=== PATIENT | male | born 2000 | race Caucasian/White ===

== ENCOUNTER 2020-11-08 14:40 | Outpatient (REF) | payer SELFPAY ==
[2020-11-09 21:31] LABS: Rubella IgG Antibody 4.18 Index
[2020-11-11 08:15] LABS: HBS Num1 11.69 mIU/mL (0-7.99); HBc Num1 0.15 S/CO (0.00-0.79); HBsAGNum1 0.31 S/CO (0.00-0.99); Hepatitis B Core Antibody Nonreactive (Nonreactive); Hepatitis B Surface Antigen Negative (Negative)
[2020-11-11 09:44] LABS: HBS Num2 11.21 mIU/mL (0-7.99); HBS Num3 11.24 mIU/mL (0-7.99); ~Hepatitis B Surface Antibody GRAYZONE (Nonreactive)
== END 2020-11-08 14:41 | disposition home or self-care (01) ==
LOC: HO.LAB 14:40
PROVIDERS: PCP Internal Medicine; Visit Provider Internal Medicine
DX: Z02.0 Encounter for examination for admission to educational institution (principal)
CPT/HCPCS: 36415; 86704; 86706; 86735; 86762; 86765; 86787; 87340

== ENCOUNTER 2022-11-10 15:34 | Outpatient (AMB) | payer OTHER, SELFPAY ==
[2022-11-10 16:31] VITALS: BP 150/100; PULSE 87; O2SAT 97; BMI 33.7
--- NOTE | 2022-11-10 16:31 | A.OFFPC_ITS ---
Vital Signs 11/10/22 16:31 11/10/22 17:14 Height 6 ft 1 in Weight 255 lb 4 oz BMI 33.7 BP 150/100 H 110/70 Blood Pressure Location Lt brachial Lt brachial Position Sitting Sitting Pulse 87 Pulse Source Pulse Oximeter Pulse Oximetry (%) 97 Oxygen Delivery Method Room Air Intake Visit Reasons: Annual Exam Life Insurance Specialist: Not Required per policy Accompanied by: Self / Same As Patient Allergies No Known Allergies Allergy (Verified 11/10/22 16:31) Medication List - Last Reconciled 11/10/22 by Mook Abbott MD loratadine (Claritin) 10 mg PO DAILY Tobacco use date assessed: 11/10/22 Dental Screening Dental Screen Date: 11/10/22 Did you have a dental visit in the last 12 months?: Yes Did you have a dental problem in the last 6 months where you did not have access to dental care?: No Was dental information given to patient?: Patient has dentist HPI Annual Exam HPI Details 22-year-old Obese 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 November 30, 2022. hx of nausea-food poisoning hx - better now [facility] Medical History Sotos' syndrome Anxiety and depression Migraine Obesity (BMI 30-39.9) Surgical History History of MRSA infection History of ear surgery History of toe surgery Family History Mother Skin cancer Myocardial infarction Maternal Grandmother Skin cancer Maternal Grandfather Myocardial infarction Maternal Aunt Melanoma Brain cancer Primary cancer of bone marrow Social History Housing: House Alcohol intake: never Patient Tobacco Use Status: Never used Tobacco e-Cigarette/Vaping Use: Never Used Current occupational status: unemployed Cognitive needs: No Hearing needs: No Vision needs: No Questionnaire PHQ-9 Over the last 2 weeks, how often have you been bothered by any of the following problems? 1. Little interest or pleasure in doing things: not at all 2. Feeling down, depressed, or hopeless: not at all 3. Trouble falling or staying asleep, or sleeping too much: not at all 4. Feeling tired or having little energy: not at all 5. Poor appetite or overeating: not at all 6. Feeling bad about yourself - or that you are a failure or have let yourself or your family down: not at all 7. Trouble concentrating on things, such as reading the newspaper or watching television: not at all 8. Moving or speaking so slowly that other people could have noticed. Or the opposite - being so fidgety or restless that you have been moving around a lot more than usual: not at all 9. Thoughts that you would be better off or of hurting yourself in some way: not at all Total score: 0 Source: Developed by Drs. Miguel Angel Edwards, Kristi Muniz, Que Vides and colleagues, with an educational oracio from [employer]. Thrive Questionnaire Date Thrive assessed: 11/10/22 I am a: Patient What is your living situation today?: I have a steady place to live Within the past 12 months, did the food you bought not last and you didn't have the money to get more?: Never true Within the past 12 months, did you worry whether your food would run out before you got money to buy more?: Never true Do you have trouble paying for medicines?: No Do you have trouble getting transportation to medical appointments?: No Do you have trouble paying your heating and electricity bill?: No Do you have trouble taking care of your child, family member or friend?: No Do you have trouble with day-to-day activities such as bathing, preparing meals, shopping, managing finances, etc.?: No Are you currently unemployed and looking for a job?: No Are you interested in more education?: No Please select the resources that you would like help with: None AUDIT C Alcohol Use Questionnaire (AUDIT-C) 1. How often do you have a drink containing alcohol?: Never 2. How many drinks containing alcohol do you have on a typical day when you are drinking?: 1 or 2 (0) 3. How often do you have six or more drinks on one occasion?: Never Total Score: 0 SUZY-7 AMB Questionnaire SUZY-7 Date SUZY - 7 assessed: 11/10/22 Feeling nervous, anxious, or on edge: 0 = Not at all Not being able to stop or control worryin = Not at all Worrying too much about different things: 0 = Not at all Trouble relaxin = Not at all Being so restless that it is hard to sit still: 0 = Not at all Becoming easily annoyed or irritable: 0 = Not at all Feeling afraid as if something awful might happen: 0 = Not at all Total USZY-7 score (0-4 normal; 5-9 mild; 10-14 moderate; 15-21 severe): 0 Source: Developed by Drs. Miguel Angel Edwards, Kristi Muniz, Que Vides and colleagues, with an educational oracio from [employer]. Review of Systems Const Denies poor appetite and Denies weakness Eyes Denies no additional complaints ENT Reports Normal hearing present, Denies dizziness, Denies nasal congestion, Denies tinnitus and Denies sore throat Card Denies chest pain, Denies syncope, Denies rapid heart rate and Denies dyspnea Resp Denies cough and Denies dyspnea GI Denies change in stool character, Reports constipation, Denies diarrhea, Denies nausea and Denies vomiting Denies dysuria and Denies urinary frequency Neuro Reports Normal hearing present, Denies confusion, Denies dizziness, Denies syncope and Denies weakness Psych Denies confusion Physical exam (Primary Care) Vital Signs: Last Vital Signs Pulse 87 11/10/22 16:31 BP 150/100 H 11/10/22 16:31 Pulse Ox 97 11/10/22 16:31 Oxygen Delivery Method Room Air 11/10/22 16:31 BMI result Body Mass Index 33.7 Tobacco/Smoking Status: Tobacco use Status Tobacco use date assessed 11/10/22 11/10/22 16:36 Patient Tobacco Use Status Never used Tobacco 11/10/22 16:36 e-Cigarette/Vaping Use Never Used 11/10/22 16:36 PHQ-9: PHQ-9 Score PHQ-9: Total score 0 11/10/22 16:36 Thrive Assessment: Date of Thrive Assessment Date Thrive assessed 11/10/22 11/10/22 16:36 Const General: alert and awake; No confusion Orientation/consciousness: No confusion HENMT Head: Yes normocephalic Ears: external ears normal and TM's normal bilaterally Face and sinus: Yes normal facial exam Mouth: moist mucous membranes Throat: Yes tonsils normal Eyes Conjunctivae: conjunctivae normal Pupils: Equal, round and reactive pupils present and Pupil accommodation reflex normal Direct Ophthalmoscopy: normal light reflex Neck Neck: No lymphadenopathy Thyroid: Thyroid normal Chest Chest palpation & inspection: normal inspection of the chest Resp Effort & Inspection: normal respiratory effort and no audible wheezes Auscultation: clear to auscultation bilaterally, no crackles, no wheezes and lung sounds not diminished Cardio Rate: regular rate Rhythm: regular rhythm Peripheral pulses: radial pulses present and dorsalis pedis present GI Other: Visual exam negative Palpation (GI): no masses Auscultation: normal bowel sounds and normoactive bowel sounds Rectal Exam - Male: Yes deferred Male General Exam: Yes normal external exam Skin General skin exam: no rashes or lesions noted Rashes: no rashes Neuro General: deep tendon reflexes 2+ bilaterally and No confusion Cranial nerves: Yes Equal, round and reactive pupils present, Yes Midline tongue present, Yes Normal hearing present and Yes Ability to bilaterally elevate shoulders present Cognition (Neuro): normal cognition Gait exam (Neuro): Normal gait present Motor exam (neuro): 5/5 motor strength present throughout Deep tendon reflexes (DTR's): Right brachioradialis reflex intensity grade: 2+, Left brachioradialis reflex intensity grade: 2+, Right patellar reflex intensity grade: 2+ and Left patellar reflex intensity grade: 2+ Extrem General: No edema Assessment and Plan Assessment & Plan (1) Annual physical exam: Code(s): Z00.00 - Encounter for general adult medical examination without abnormal findings (2) Sotos' syndrome: Comment: Excessive physical growth during 1st years of life accompanied by autism intellectual disability, delayed motor cognitive and social development hypotonia and speech impairments 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 Will request for basic blood work on the patient. (3) Obesity (BMI 30-39.9): Code(s): E66.9 - Obesity, unspecified Plan: Diet and exercise (4) Generalized anxiety disorder: Comment: BH and counseling (10/2021) Code(s): F41.1 - Generalized anxiety disorder Plan: Continue to follow-up with counseling and therapy (5) Sensorineural hearing loss: Code(s): H90.5 - Unspecified sensorineural hearing loss Plan: Patient follows up with ear nose and throat and planned surgery Orders: Orders Hemoglobin A1c Today E66.9 - Obesity, unspecified Free T4 (Free Thyroxine) Today E66.9 - Obesity, unspecified Vitamin B12 and Folate Today E66.9 - Obesity, unspecified Complete Blood Count Auto Diff Today E66.9 - Obesity, unspecified Comprehensive Met. Panel Today E66.9 - Obesity, unspecified Thyroid Stimulating Hormone Today E66.9 - Obesity, unspecified Lipid Panel Today E66.9 - Obesity, unspecified, E78.00 - Pure hypercholesterolemia, unspecified Coding Level of Care Code Est Pt Prev Care 18-39y(22422) Diagnoses Annual physical exam Z00.00 Sotos' syndrome Q87.3 Obesity (BMI 30-39.9) E66.9 Generalized anxiety disorder F41.1 Sensorineural hearing loss H90.5
[2022-11-10 17:14] VITALS: BP 110/70
== END 2022-11-10 17:27 | disposition home or self-care (01) ==
PROVIDERS: PCP Internal Medicine; Visit Provider Internal Medicine
DX: Z00.00 Encounter for general adult medical examination without abnormal findings (principal); Q87.3 Congenital malformation syndromes involving early overgrowth; E66.9 Obesity, unspecified; Z68.33 Body mass index [BMI] 33.0-33.9, adult; F41.1 Generalized anxiety disorder; H90.5 Unspecified sensorineural hearing loss
CPT/HCPCS: 99395

== ENCOUNTER 2023-03-15 14:57 | Outpatient (AMB) | payer OTHER, SELFPAY ==
[2023-03-15 15:05] VITALS: BP 120/80; PULSE 94; O2SAT 97; BMI 32.5
--- NOTE | 2023-03-15 15:05 | MHC.PC.OV ---
Vital Signs 03/15/23 15:05 Height 6 ft 1 in Weight 246 lb BMI 32.5 BP 120/80 Blood Pressure Location Lt brachial Position Sitting Pulse 94 Pulse Source Pulse Oximeter Pulse Oximetry (%) 97 Oxygen Delivery Method Room Air Intake Visit Reasons: low blood sugars Intake Note: Dr. Abbott's patient is reporting low glucose levels after returning home from the gym. This incident occurred a month ago. Offset Assistant Press Operator Required: No Accompanied by: Self / Same As Patient Allergies No Known Allergies Allergy (Verified 03/15/23 15:47) Medication List - Last Reconciled 03/15/23 by Zac Benedict PA-C loratadine (Claritin) 10 mg PO DAILY Tobacco use date assessed: 03/15/23 Dental Screening Dental Screen Date: 03/15/23 Did you have a dental visit in the last 12 months?: Yes Did you have a dental problem in the last 6 months where you did not have access to dental care?: No Was dental information given to patient?: Patient has dentist HPI low blood sugars HPI Details Patient is a 22-year-old male here today for problem visit. 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 Reports over the last few months noting low blood sugar readings on random occasions. Reports blood sugar 65 and felt somewhat shaky and lethargic. He admits to eating 3 meals a day and not fasting. Has recently been trying to go to the gym to reduce his weight. 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 And also noted mild ventriculomegaly consistent with Anderson syndrome [facility] Medical History Sotos' syndrome Anxiety and depression Migraine Obesity (BMI 30-39.9) Surgical History History of MRSA infection History of ear surgery History of toe surgery Family History Mother Skin cancer Myocardial infarction Maternal Grandmother Skin cancer Maternal Grandfather Myocardial infarction Maternal Aunt Melanoma Brain cancer Primary cancer of bone marrow Social History Housing: House Alcohol intake: never Patient Tobacco Use Status: Never used Tobacco e-Cigarette/Vaping Use: Never Used Current occupational status: unemployed Cognitive needs: No Hearing needs: No Vision needs: No Questionnaire PHQ-9 Over the last 2 weeks, how often have you been bothered by any of the following problems? 1. Little interest or pleasure in doing things: not at all 2. Feeling down, depressed, or hopeless: not at all 3. Trouble falling or staying asleep, or sleeping too much: not at all 4. Feeling tired or having little energy: not at all 5. Poor appetite or overeating: not at all 6. Feeling bad about yourself - or that you are a failure or have let yourself or your family down: not at all 7. Trouble concentrating on things, such as reading the newspaper or watching television: not at all 8. Moving or speaking so slowly that other people could have noticed. Or the opposite - being so fidgety or restless that you have been moving around a lot more than usual: not at all 9. Thoughts that you would be better off or of hurting yourself in some way: not at all Total score: 0 Depression Screening Interpretation: Negative Depression Screening Done: Yes 63651 - PHQ-9 Billing: Yes Source: Developed by Drs. Miguel Angel Edwards, Kristi Muniz, Que Vides and colleagues, with an educational oracio from [employer]. Thrive Questionnaire Date Thrive assessed: 03/15/23 I am a: Patient What is your living situation today?: I have a steady place to live Within the past 12 months, did the food you bought not last and you didn't have the money to get more?: Never true Within the past 12 months, did you worry whether your food would run out before you got money to buy more?: Never true Do you have trouble paying for medicines?: No Do you have trouble getting transportation to medical appointments?: No Do you have trouble paying your heating and electricity bill?: No Do you have trouble taking care of your child, family member or friend?: No Do you have trouble with day-to-day activities such as bathing, preparing meals, shopping, managing finances, etc.?: No Are you currently unemployed and looking for a job?: No Are you interested in more education?: No Please select the resources that you would like help with: None AUDIT C Alcohol Use Questionnaire (AUDIT-C) 1. How often do you have a drink containing alcohol?: Never Total Score: 0 SUZY-7 AMB Questionnaire SUZY-7 Date SUZY - 7 assessed: 03/15/23 Feeling nervous, anxious, or on edge: 0 = Not at all Not being able to stop or control worryin = Not at all Worrying too much about different things: 0 = Not at all Trouble relaxin = Not at all Being so restless that it is hard to sit still: 0 = Not at all Becoming easily annoyed or irritable: 0 = Not at all Feeling afraid as if something awful might happen: 0 = Not at all Total USZY-7 score (0-4 normal; 5-9 mild; 10-14 moderate; 15-21 severe): 0 Source: Developed by Drs. Miguel Angel Edwards, Kristi Muniz, Que Vides and colleagues, with an educational oracio from [employer]. SUZY-7 Assessment Billing SUZY-7 Assessment Tool: SUZY-7 Assessment 28058 Review of Systems Const Denies headache(s) Eyes Denies loss of vision ENT Denies vertigo, Denies dizziness, Denies headache(s) and Denies sore throat Card Denies chest pain, Denies leg edema and Denies lightheadedness Resp Denies cough, Denies hemoptysis and Denies wheezing GI Denies abdominal pain, Denies melena, Denies constipation, Denies diarrhea and Denies vomiting Denies dysuria, Denies urinary frequency and Denies urinary urgency Musc Denies arthralgias, Denies joint swelling, Denies numbness and Denies tingling Neuro Denies Abnormal speech present, Denies behavioral changes, Denies vertigo, Denies dizziness, Denies headache(s), Denies loss of vision, Denies memory loss, Denies numbness and Denies tingling Psych Denies anxiety, Denies behavioral changes, Denies depression, Denies memory loss and Denies panic attacks Darvin/Lymph Denies easy bleeding and Denies easy bruising Aller/Immun Denies wheezing Physical exam (Primary Care) Vital Signs: Last Vital Signs Pulse 94 03/15/23 15:05 BP 120/80 03/15/23 15:05 Pulse Ox 97 03/15/23 15:05 Oxygen Delivery Method Room Air 03/15/23 15:05 BMI result Body Mass Index 32.5 Tobacco/Smoking Status: Tobacco use Status Tobacco use date assessed 03/15/23 03/15/23 15:07 Patient Tobacco Use Status Never used Tobacco 03/15/23 15:07 e-Cigarette/Vaping Use Never Used 03/15/23 15:07 PHQ-9: PHQ-9 Score PHQ-9: Total score 0 03/15/23 15:49 Depression Screening Interpretation: Negative Thrive Assessment: Date of Thrive Assessment Date Thrive assessed 03/15/23 03/15/23 15:07 Const General: healthy appearing, no acute distress, alert and awake Nutritional Appearance: well nourished Orientation/consciousness: oriented to person, oriented to place and oriented to time HENMT Ears: TM's normal bilaterally General nose exam: Normal nasal mucous membranes and turbinates present Eyes Conjunctivae: conjunctivae normal Sclerae: sclerae normal Pupils: Equal, round and reactive pupils present Neck Neck: Yes no lymphadenopathy and Yes no JVD Thyroid: Thyroid normal Carotids: no bruits Resp Effort & Inspection: normal respiratory effort and not tachypneic Auscultation: no crackles, no rales, no rhonchi and no wheezes Cardio Rate: regular rate Rhythm: regular rhythm Heart sounds: no murmurs and normal S1 and S2 GI Palpation (GI): Soft to palpation, nontender, no hepatomegaly and no splenomegaly Auscultation: normal bowel sounds Skin General skin exam: no rashes or lesions noted and dry skin Neuro General: oriented to person, oriented to place and oriented to time Cranial nerves: Yes Equal, round and reactive pupils present Speech: No Abnormal speech present Gait exam (Neuro): Normal gait present Motor exam (neuro): no tremor noted Extrem Right upper extremity: full ROM Left upper extremity: full ROM Right lower extremity: full ROM; no edema Left lower extremity: full ROM; no edema Psych Mental Status: mental status grossly normal Speech and movement: Normal speech and movement present Affect: normal affect Attitude: cooperative Thought process: Normal thought process present Assessment and Plan Assessment & Plan (1) Hypoglycemia: Code(s): E16.2 - Hypoglycemia, unspecified Plan: Unclear etiology to patient's hypoglycemia. Advised on getting 3 regular meals a day and snacks in between. Unclear if his hypoglycemia is related to his brain penial cystic lesion. They will follow back up with his neurologist on repeat brain MRI. May need endocrinology evaluation. 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 Leslie will need repeat MRI in 6 months Code(s): E34.8 - Other specified endocrine disorders Plan: As above (3) Sotos' syndrome: Comment: Excessive physical growth during 1st years of life accompanied by autism intellectual disability, delayed motor cognitive and social development hypotonia and speech impairments macrocephaly for true sleeve forehead large hands and feet large mandible, hypertelorism with with increased in size between the eyes down slanting eyes all cord gait unusual aggressive this irritability, scoliosis, advance bone H increase the extra-axial CSF , PDA, atrial septal defect, hypoplastic kidneys, the hydronephrosis screening brain imaging renal ultrasound, echo and bone age Code(s): Q87.3 - Congenital malformation syndromes involving early overgrowth Orders: Orders Basic Metabolic Panel 03/15/23 E16.2 - Hypoglycemia, unspecified Complete Blood Count no Diff 03/15/23 E16.2 - Hypoglycemia, unspecified Human Growth Hormone Today Q87.3 - Congenital malformation syndromes involving early overgrowth Follicle Stimulating Hormone Today Q87.3 - Congenital malformation syndromes involving early overgrowth Hemoglobin A1c 03/15/23 E16.2 - Hypoglycemia, unspecified Prolactin 03/15/23 Q87.3 - Congenital malformation syndromes involving early overgrowth TSH reflex Free T4 03/15/23 Q87.3 - Congenital malformation syndromes involving early overgrowth Coding Level of Care Code Est Pt Level 4 (90552) Diagnoses Hypoglycemia E16.2 Pineal gland cyst E34.8 Sotos' syndrome Q87.3 Additional Codes SUZY-7 Assessment Billing - SUZY-7 Assessment Tool: SUZY-7 Assessment [id number] ([id number])
== END 2023-03-15 16:21 | disposition home or self-care (01) ==
PROVIDERS: PCP Internal Medicine; Visit Provider Physician Assistant
DX: E16.2 Hypoglycemia, unspecified (principal); E34.8 Other specified endocrine disorders; Q87.3 Congenital malformation syndromes involving early overgrowth
CPT/HCPCS: 99214

== ENCOUNTER 2023-12-21 09:56 | Outpatient (REF) | payer OTHER, SELFPAY ==
[2023-12-21 10:49] LABS: Hematocrit 52.4 % (42.0-52.0); Hemoglobin 17.7 g/dl (14.0-18.0); Mean Corpuscular HGB Conc 33.8 g/dl (31.0-36.0); Mean Corpuscular Hemoglobin 29.1 pg (27.0-33.0); Mean Platelet Volume 9.8 fL (9.4-12.4); Platelet Count 205 X10*3/uL (160-400); Red Blood Count 6.09 X10*6/uL (4.60-5.80); Red Cell Distribution Width 13.7 % (11.0-16.0); White Blood Count 6.5 X10*3/uL (4.8-10.8)
[2023-12-21 11:03] LABS: Estimated Average Glucose 97 mg/dL; Total Hemoglobin (HGBA1C) 4142.9988 umol/L
[2023-12-21 11:59] LABS: Anion Gap 12 (12-20); Blood Urea Nitrogen 14 mg/dL (9-16); Calcium 9.6 mg/dL (8.4-10.2); Carbon Dioxide 25 mmol/L (22-29); Chloride 108 mmol/L (96-108); Estimated Glomerular Filt Rate > 60; Glucose Random 88 mg/dL (60-115); Potassium 4.2 mmol/L (3.3-5.1); Sodium 141 mmol/L (135-145)
[2023-12-21 12:19] LABS: TSH reflex Free T4 2.66 uIU/mL (0.32-4.0)
[2023-12-22 18:43] LABS: Follicle Stimulating Hormone 3.5 mIU/mL (1.4-12.8)
[2023-12-22 23:24] LABS: Human Growth Hormone <0.1 ng/mL (< OR = 7.1)
== END 2023-12-21 09:57 | disposition home or self-care (01) ==
LOC: HO.LAB 09:56
PROVIDERS: PCP Internal Medicine; Visit Provider Physician Assistant
DX: Q87.3 Congenital malformation syndromes involving early overgrowth (principal); E16.2 Hypoglycemia, unspecified
CPT/HCPCS: 36415; 80048; 83001; 83003; 83036; 84146; 84443; 85027; 99395

== ENCOUNTER 2023-12-21 13:36 | Outpatient (AMB) | payer OTHER, SELFPAY ==
[2023-12-21 13:39] VITALS: BP 120/78; PULSE 80; O2SAT 97; BMI 33.0
--- NOTE | 2023-12-21 13:39 | A.OFFPC_ITS ---
Vital Signs 12/21/23 13:39 Height 6 ft 1 in Weight 250 lb BMI 33.0 BP 120/78 Blood Pressure Location Lt brachial Position Sitting Pulse 80 Pulse Source Pulse Oximeter Pulse Oximetry (%) 97 Oxygen Delivery Method Room Air Intake Visit Reasons: annual exam Investment Banking Manager Required: No Allergies No Known Allergies Allergy (Verified 12/21/23 13:39) Medication List - Last Reconciled 12/21/23 by Mook Abbott MD loratadine (Claritin) 10 mg PO DAILY multivitamin 1 tab PO DAILY Tobacco use date assessed: 12/21/23 Dental Screening Dental Screen Date: 12/21/23 Did you have a dental visit in the last 12 months?: Yes Did you have a dental problem in the last 6 months where you did not have access to dental care?: No Was dental information given to patient?: Patient has dentist HPI annual exam HPI Details 23-year-old obese 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 Review of the notes was seen in March by the [facility] assistant director with concerns from low blood sugar. Blood work was requested [facility] Medical History (Updated 12/21/23 @ 18:05 by Mook Abbott MD) Sotos' syndrome Anxiety and depression Migraine Obesity (BMI 30-39.9) Surgical History (Updated 12/21/23 @ 14:16 by Mook Abbott MD) History of MRSA infection History of ear surgery History of toe surgery Family History Mother Skin cancer Myocardial infarction Maternal Grandmother Skin cancer Maternal Grandfather Myocardial infarction Maternal Aunt Melanoma Brain cancer Primary cancer of bone marrow Social History Housing: House Alcohol intake: never Patient Tobacco Use Status: Never used Tobacco e-Cigarette/Vaping Use: Never Used Current occupational status: unemployed Cognitive needs: No Hearing needs: No Vision needs: No Questionnaire PHQ-9 Over the last 2 weeks, how often have you been bothered by any of the following problems? 1. Little interest or pleasure in doing things: several days 2. Feeling down, depressed, or hopeless: several days 3. Trouble falling or staying asleep, or sleeping too much: several days 4. Feeling tired or having little energy: nearly every day 5. Poor appetite or overeating: several days 6. Feeling bad about yourself - or that you are a failure or have let yourself or your family down: several days 7. Trouble concentrating on things, such as reading the newspaper or watching television: not at all 8. Moving or speaking so slowly that other people could have noticed. Or the opposite - being so fidgety or restless that you have been moving around a lot more than usual: several days 9. Thoughts that you would be better off or of hurting yourself in some way: not at all Total score: 9 [id number] - PHQ-9 Billing: Yes Source: Developed by Drs. Miguel Angel Edwards, Kristi Muniz, Que Vides and colleagues, with an educational oracio from [employer]. Thrive Questionnaire Date Thrive assessed: 03/15/23 I am a: Patient What is your living situation today?: I have a steady place to live Within the past 12 months, did the food you bought not last and you didn't have the money to get more?: I choose not to answer this question Within the past 12 months, did you worry whether your food would run out before you got money to buy more?: I choose not to answer this question Do you have trouble paying for medicines?: No Do you have trouble getting transportation to medical appointments?: I choose not to answer this question Do you have trouble paying your heating and electricity bill?: I choose not to answer this question Do you have trouble taking care of your child, family member or friend?: I choose not to answer this question Do you have trouble with day-to-day activities such as bathing, preparing meals, shopping, managing finances, etc.?: No Are you currently unemployed and looking for a job?: Yes Are you interested in more education?: I choose not to answer this question Please select the resources that you would like help with: None Currently or been in a relationship where the following occur: I choose not to answer THRIVE Score: 0 AUDIT C Alcohol Use Questionnaire (AUDIT-C) 1. How often do you have a drink containing alcohol?: Never 2. How many drinks containing alcohol do you have on a typical day when you are drinking?: 1 or 2 (0) 3. How often do you have six or more drinks on one occasion?: Never Total Score: 0 SUZY-7 AMB Questionnaire SUZY-7 Date SUZY - 7 assessed: 03/15/23 Feeling nervous, anxious, or on edge: 1 = Several days Not being able to stop or control worryin = Several days Worrying too much about different things: 1 = Several days Trouble relaxin = Several days Being so restless that it is hard to sit still: 1 = Several days Becoming easily annoyed or irritable: 1 = Several days Feeling afraid as if something awful might happen: 1 = Several days Total SUZY-7 score (0-4 normal; 5-9 mild; 10-14 moderate; 15-21 severe): 7 Source: Developed by Drs. Miguel Angel Edwards, Kristi Muniz, Que Vides and colleagues, with an educational oracio from [employer]. Review of Systems Const Denies poor appetite and Denies weakness Eyes Denies no additional complaints ENT Reports Normal hearing present, Denies dizziness, Denies nasal congestion, Denies tinnitus and Denies sore throat Card Denies chest pain, Denies syncope, Denies rapid heart rate and Denies dyspnea Resp Denies cough and Denies dyspnea GI Denies change in stool character, Reports constipation, Denies diarrhea, Denies nausea and Denies vomiting Denies dysuria and Denies urinary frequency Neuro Reports Normal hearing present, Denies confusion, Denies dizziness, Denies syncope and Denies weakness Psych Denies confusion Physical exam (Primary Care) Vital Signs: Last Vital Signs Pulse 80 12/21/23 13:39 BP 120/78 12/21/23 13:39 Pulse Ox 97 12/21/23 13:39 Oxygen Delivery Method Room Air 12/21/23 13:39 BMI result Body Mass Index 33.0 Tobacco/Smoking Status: Tobacco use Status Tobacco use date assessed 12/21/23 12/21/23 13:44 Patient Tobacco Use Status Never used Tobacco 12/21/23 13:44 e-Cigarette/Vaping Use Never Used 12/21/23 13:44 PHQ-9: PHQ-9 Score PHQ-9: Total score 9 12/21/23 14:13 Thrive Assessment: Date of Thrive Assessment Date Thrive assessed 03/15/23 12/21/23 13:44 Currently or been in a relationship where the following occur: I choose not to answer Const General: alert and awake; No confusion Orientation/consciousness: No confusion HENMT Head: Yes normocephalic Ears: external ears normal and TM's normal bilaterally Face and sinus: Yes normal facial exam Mouth: moist mucous membranes Throat: Yes tonsils normal Eyes Conjunctivae: conjunctivae normal Pupils: Equal, round and reactive pupils present and Pupil accommodation reflex normal Direct Ophthalmoscopy: normal light reflex Neck Neck: No lymphadenopathy Thyroid: Thyroid normal Chest Chest palpation & inspection: normal inspection of the chest Resp Effort & Inspection: normal respiratory effort and no audible wheezes Auscultation: clear to auscultation bilaterally, no crackles, no wheezes and lung sounds not diminished Cardio Rate: regular rate Rhythm: regular rhythm Peripheral pulses: radial pulses present and dorsalis pedis present GI Other: visual rectal exam negative Palpation (GI): no masses Auscultation: normal bowel sounds and normoactive bowel sounds Male General Exam: Yes normal external exam Skin General skin exam: no rashes or lesions noted Rashes: no rashes Neuro General: deep tendon reflexes 2+ bilaterally and No confusion Cranial nerves: Yes Equal, round and reactive pupils present, Yes Midline tongue present, Yes Normal hearing present and Yes Ability to bilaterally elevate shoulders present Cognition (Neuro): normal cognition Gait exam (Neuro): Normal gait present Motor exam (neuro): 5/5 motor strength present throughout Deep tendon reflexes (DTR's): Right brachioradialis reflex intensity grade: 2+, Left brachioradialis reflex intensity grade: 2+, Right patellar reflex intensity grade: 2+ and Left patellar reflex intensity grade: 2+ Extrem Other: bilateral big toe medial position General: No edema Coding Level of Care Code Est Pt Prev Care 18-39y(53581) Diagnoses Annual physical exam Z00.00 Obesity (BMI 30-39.9) E66.9 Sotos' syndrome Q87.3 Generalized anxiety disorder F41.1 Valgus deformity of both great toes M20.11; M20.12 Laterality: bilateral 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 (2) Obesity (BMI 30-39.9): Code(s): E66.9 - Obesity, unspecified Category: Medical Plan: Diet and exercise (3) Sotos' syndrome: Comment: Excessive physical growth during 1st years of life accompanied by autism intellectual disability, delayed motor cognitive and social development hypotonia and speech impairments macrocephaly for true sleeve forehead large hands and feet large mandible, hypertelorism with with increased in size between the eyes down slanting eyes all cord gait unusual aggressive this irritability, scoliosis, advance bone H increase the extra-axial CSF , PDA, atrial septal defect, hypoplastic kidneys, the hydronephrosis screening brain imaging renal ultrasound, echo and bone age Code(s): Q87.3 - Congenital malformation syndromes involving early overgrowth Category: Medical Plan: Continue to monitor. 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 Leslie will need repeat MRI in 6 months Code(s): E34.8 - Other specified endocrine disorders Category: Medical Plan: MRI requested. Orders: Orders MR head/brain wo/w con Today E34.8 - Other specified endocrine disorders Referrals Podiatry Referral M20.10 - Hallux valgus (acquired), unspecified foot
== END 2023-12-21 14:37 | disposition home or self-care (01) ==
PROVIDERS: PCP Internal Medicine; Visit Provider Internal Medicine
DX: Z00.00 Encounter for general adult medical examination without abnormal findings (principal); E66.9 Obesity, unspecified; Z68.33 Body mass index [BMI] 33.0-33.9, adult; Q87.3 Congenital malformation syndromes involving early overgrowth; F41.1 Generalized anxiety disorder; M20.11 Hallux valgus (acquired), right foot; M20.12 Hallux valgus (acquired), left foot; E34.8 Other specified endocrine disorders

== ENCOUNTER 2024-01-15 12:49 | Outpatient (REF) | payer OTHER, SELFPAY | END 2024-01-15 12:50 | disposition home or self-care (01) | LOC: HO.MRI 12:49 | PROVIDERS: PCP Internal Medicine; Visit Provider Internal Medicine | DX: E34.8 Other specified endocrine disorders (principal) | CPT/HCPCS: 70551 ==

== ENCOUNTER 2024-07-06 08:29 | Outpatient (AMB) | payer OTHER, SELFPAY ==
--- NOTE | 2024-07-06 08:30 | MHC.OFFVIS ---
Vital Signs 07/06/24 08:31 Height 6 ft 1 in Weight 261 lb BMI 34.4 BP 130/88 Blood Pressure Location Rt brachial Position Sitting Intake Visit Reasons: [id number] INP-other specify endrocrine disorder Intake Note: in house referred by Dr. Abbott for Pineal gland cyst. Allergies No Known Allergies Allergy (Verified 07/06/24 08:32) Medication List - Last Reconciled 07/06/24 by Mariangel Luna MD loratadine (Claritin) 10 mg PO DAILY multivitamin 1 tab PO DAILY HPI Comments Details: 23y/o male with a complex medical history comes for further management of pineal gland cyst . He has Sotos syndrome-(Excessive physical growth during 1st years of life accompanied by autism intellectual disability, delayed motor cognitive and social development hypotonia and speech impairments macrocephaly for true sleeve forehead large hands and feet large mandible, hypertelorism with with increased in size between the eyes down slanting eyes all cord gait unusual aggressive this irritability, scoliosis, advance bone H increase the extra-axial CSF , PDA, atrial septal defect, hypoplastic kidneys, the hydronephrosis screening brain imaging renal ultrasound, echo and bone age) MRI brain 12/2023- No acute intracranial abnormalities. No abnormal intracranial enhancement. 2. Mild nonspecific white matter changes. 3. The sella turcica is moderately expanded with partial flattening of the pituitary gland. Otherwise, normal morphology and signal intensity of the pituitary gland on the noncontrast evaluation. 4. There is a 1.5 cm cyst without suspicious features associated with the pineal gland. He has intellectual disabiliy - graduated from high school and was in special ed. He took theater classes after that.He is looking for emergency department rn job .He has never worked but has volunteered in some places. He came alone for todays visit . He lives with his mother- came to this visit with his brother. He denies headaches. he has loud snoring and has some daytime fatigue. [facility] Medical History (Updated 07/06/24 @ 08:56 by Mariangel Luna MD) Hypersomnia Snoring Sotos' syndrome Anxiety and depression Migraine Obesity (BMI 30-39.9) Surgical History History of MRSA infection History of ear surgery History of toe surgery Family History Mother Skin cancer Myocardial infarction Maternal Grandmother Skin cancer Maternal Grandfather Myocardial infarction Maternal Aunt Melanoma Brain cancer Primary cancer of bone marrow Social History Housing: House Alcohol intake: never Patient Tobacco Use Status: Never used Tobacco e-Cigarette/Vaping Use: Never Used Current occupational status: unemployed Cognitive needs: No Hearing needs: No Vision needs: No Physical Exam Vital Signs: Last Vital Signs BP 130/88 07/06/24 08:31 BMI result Body Mass Index 34.4 Const General: cooperative, healthy appearing, comfortable, no acute distress, well developed and alert Nutritional Appearance: obese Orientation/consciousness: oriented to person, oriented to place and oriented to time Eyes Pupils: Equal, round and reactive pupils present Neuro Other: mildly slanted eyes Mallampatti grade 4 Mild difficulty comprehending questions General: oriented to person, oriented to place, oriented to time, gait normal, tone normal, moves all extremities and no focal motor deficits Cranial nerves: Yes Facial sensation intact/muscles of mastication intact, Yes Equal, round and reactive pupils present, Yes Bilaterally intact EOM present, Yes Nystagmus not present and Yes Normal facial strength present Gait exam (Neuro): Normal gait present Motor exam (neuro): 5/5 motor strength present throughout and Normal motor muscle tone present throughout Deep tendon reflexes (DTR's): Right triceps reflex intensity grade: 0, Left triceps reflex intensity grade: 0, Rt Biceps (C5, C6): 0, Left biceps reflex intensity grade: 0, Right brachioradialis reflex intensity grade: 0, Left brachioradialis reflex intensity grade: 0, Right patellar reflex intensity grade: 0 and Left patellar reflex intensity grade: 0 Coordination: [id number] test normal Psych Appearance: grossly normal Mental Status: mental status grossly normal Speech and movement: Normal speech and movement present Affect: normal affect Attitude: cooperative Results Reviewed Results Reviewed: January 2024No acute intracranial abnormalities. No abnormal intracranial enhancement. 2. Mild nonspecific white matter changes. 3. The sella turcica is moderately expanded with partial flattening of the pituitary gland. Otherwise, normal morphology and signal intensity of the pituitary gland on the noncontrast evaluation. 4. There is a 1.5 cm cyst without suspicious features associated with Assessment & Plan Assessment & Plan (1) Pineal gland cyst: Comment: asymptomatic Code(s): E34.8 - Other specified endocrine disorders Category: Medical (2) Sotos' syndrome: Comment: has mild to moderate intellectual disability Code(s): Q87.3 - Congenital malformation syndromes involving early overgrowth Category: Medical (3) Snoring: Code(s): R06.83 - Snoring Category: Medical (4) Hypersomnia: Code(s): G47.10 - Hypersomnia, unspecified Category: Medical Plan will monitor Pineal gland cyst with periodic MRI Home sleep test to r/o sleep apnea F/u psychiatry Orders: Orders RT home sleep study Today G47.10 - Hypersomnia, unspecified, R06.83 - Snoring MR head/brain wo con 6 Months E34.8 - Other specified endocrine disorders, Q87.3 - Congenital malformation syndromes involving early overgrowth Coding Level of Care Code New Pt Level 4 (97989) Complex EM visit Add On G2211 Diagnoses 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
[2024-07-06 08:31] VITALS: BP 130/88; BMI 34.4
--- OUTSIDE RECORDS SUMMARY | 2024-07-06 08:43 | XMS_ITS | Encounter Summary ---
Author Organization [facility] Address [address] [place] [phone] Phone Care Team Providers Care Property Controller Name Role Phone Pop Bauman MD Primary Care Provider Mily cabrera Encounter Details Date Type Department Care Team (Late st Contact Info) Description 06/29/2016 Documentation [facility] [place] Family Medicine [address] [place] [address] Family Medicine, Physician [address] [place] [address] Social History Tobacco Use Types Packs/Day Years Used Date Smoking Tobacco: Never Comments:Never smoker Sex and Gender Information Value Date Recorded Sex Assigned at Not on file Legal Sex Male 5:16 PM EDT Gender Identity Not on file Sexual Orientation Not on file documented as of this encounter Plan of Treatment Not on file documented as of this encounter Visit Diagnoses Not on filedocumented in this encounter Care Teams Property Controller Relationship Specialty Start Date End Date Pop Bauman MD PCP - General 10/09/16 04/15/22 documented as of this encounter
--- OUTSIDE RECORDS SUMMARY | 2024-07-06 08:43 | XMS_ITS | Encounter Summary ---
Author Organization [facility] Address [address] [place] [phone] Phone Care Team Providers Care Gasoline Engine Inspector Name Role Phone Pop Bauman MD Primary Care Provider Mily cabrera Encounter Details Date Type Department Care Team (Late st Contact Info) Description 01/09/2011 Documentation [facility] [place] [address] [place] [address] Family Medicine, Physician [address] [place] [address] Social History Tobacco Use Types Packs/Day Years Used Date Smoking Tobacco: Never Assessed Sex and Gender Information Value Date Recorded Sex Assigned at Not on file Legal Sex Male 5:16 PM EDT Gender Identity Not on file Sexual Orientation Not on file documented as of this encounter Plan of Treatment Not on file documented as of this encounter Visit Diagnoses Not on filedocumented in this encounter Care Teams Gasoline Engine Inspector Relationship Specialty Start Date End Date Pop Bauman MD PCP - General 10/09/16 04/15/22 documented as of this encounter
--- OUTSIDE RECORDS SUMMARY | 2024-07-06 08:43 | XMS_ITS | Encounter Summary ---
Author Organization [facility] Address [address] [place] [phone] Phone Care Team Providers Care Telephone Coin Box Collector Name Role Phone Pop Bauman MD Primary Care Provider Mily cabrera Encounter Details Date Type Department Care Team (Late st Contact Info) Description 02/19/2011 [place]ation [facility] [place] [address] [place] [address] Family Medicine, Physician [address] [place] [address] Social History Tobacco Use Types Packs/Day Years [...] on filedocumented in this encounter Care Teams Telephone Coin Box Collector Relationship Specialty Start Date End Date Pop Bauman MD PCP - General 10/09/16 04/15/22 documented as of this encounter
--- OUTSIDE RECORDS SUMMARY | 2024-07-06 08:43 | XMS_ITS | Encounter Summary ---
Author Organization [facility] Address [address] [place] [phone] Phone Care Team Providers Care Assembler Installer General Name Role Phone Pop Bauman MD Primary Care Provider Mily cabrera Encounter Details Date Type Department Care Team (Late st Contact Info) Description 05/30/2014 [place]ation [facility] [place] [address] [place] [address] Family Medicine, Physician [address] [place] [address] Social History Tobacco Use Types Packs/Day Years [...] on filedocumented in this encounter Care Teams Assembler Installer General Relationship Specialty Start Date End Date Pop Bauman MD PCP - General 10/09/16 04/15/22 documented as of this encounter
--- OUTSIDE RECORDS SUMMARY | 2024-07-06 08:43 | XMS_ITS | Encounter Summary ---
Author Organization [facility] Address [address] [place] [address] Phone Care Team Providers Care Education Teacher Name Role Phone Pop Bauman MD Primary Care Provider Mily cabrera Encounter Details Date Type Department Care Team (Late st Contact Info) Description 11/10/2012 Documentation [facility] [place] [address] [place] [address] Family Medicine, Physician [address] [place] [address] Social History Tobacco Use Types Packs/Day Years [...] on filedocumented in this encounter Care Teams Education Teacher Relationship Specialty Start Date End Date Pop Bauman MD PCP - General 10/09/16 04/15/22 documented as of this encounter
--- OUTSIDE RECORDS SUMMARY | 2024-07-06 08:43 | XMS_ITS | Encounter Summary ---
Author Organization [facility] Address [address] [place] [phone] Phone Care Team Providers Care Circulating Process Inspector Name Role Phone Pop Bauman MD Primary Care Provider Mily cabrera Encounter Details Date Type Department Care Team (Late st Contact Info) Description 03/25/2011 Documentation [facility] [place] [address] [place] [address] Family Medicine, Physician [address] [place] [address] Social History Tobacco Use Types Packs/Day Years [...] on filedocumented in this encounter Care Teams Circulating Process Inspector Relationship Specialty Start Date End Date Pop Bauman MD PCP - General 10/09/16 04/15/22 documented as of this encounter
--- OUTSIDE RECORDS SUMMARY | 2024-07-06 08:43 | XMS_ITS | Encounter Summary ---
Author Organization [facility] Address [address] [place] [phone] Phone Care Team Providers Care Timber Harvester Operator Name Role Phone Pop Bauman MD Primary Care Provider Mily cabrera Encounter Details Date Type Department Care Team (Late st Contact Info) Description 06/09/2016 Documentation [facility] [place] Family Medicine [address] [place] [address] Family Medicine, Physician [address] [place] [address] Social History Tobacco Use Types Packs/Day Years [...] on filedocumented in this encounter Care Teams Timber Harvester Operator Relationship Specialty Start Date End Date Pop Bauman MD PCP - General 10/09/16 04/15/22 documented as of this encounter
--- OUTSIDE RECORDS SUMMARY | 2024-07-06 08:43 | XMS_ITS | Encounter Summary ---
Author Organization [facility] Address [address] [place] [phone] Phone Care Team Providers Care Business Support Liaison Name Role Phone Pop Bauman MD Primary Care Provider Mily cabrera Encounter Details Date Type Department Care Team (Late st Contact Info) Description 02/16/2011 Documentation [facility] [place] Family Medicine [address] [place] [address] Family Medicine, Physician [address] [place] [address] Social History Tobacco Use Types Packs/Day Years [...] on filedocumented in this encounter Care Teams Business Support Liaison Relationship Specialty Start Date End Date Pop Bauman MD PCP - General 10/09/16 04/15/22 documented as of this encounter
--- OUTSIDE RECORDS SUMMARY | 2024-07-06 08:43 | XMS_ITS | Encounter Summary ---
Author Organization [facility] Address [address] [place] [address] Phone Care Team Providers Care Operations Manager Name Role Phone Pop Bauman MD Primary Care Provider Mily cabrera Encounter Details Date Type Department Care Team (Late st Contact Info) Description 07/01/2011 Documentation [facility] [place] Family Medicine [address] [place] [address] Family Medicine, Physician [address] [place] [address] Social History Tobacco Use Types Packs/Day Years [...] on filedocumented in this encounter Care Teams Operations Manager Relationship Specialty Start Date End Date Pop Bauman MD PCP - General 10/09/16 04/15/22 documented as of this encounter
--- OUTSIDE RECORDS SUMMARY | 2024-07-06 08:43 | XMS_ITS | Encounter Summary ---
Author Organization [facility] Address [address] [place] [address] Phone Care Team Providers Care Oxygen Equipment Aide Name Role Phone Pop Bauman MD Primary Care Provider Mily cabrera Encounter Details Date Type Department Care Team (Late st Contact Info) Description 12/11/2011 Documentation [facility] [place] [address] [place] [address] Family Medicine, Physician [address] [place] [address] Social History Tobacco Use Types Packs/Day Years [...] on filedocumented in this encounter Care Teams Oxygen Equipment Aide Relationship Specialty Start Date End Date Pop Bauman MD PCP - General 10/09/16 04/15/22 documented as of this encounter
--- OUTSIDE RECORDS SUMMARY | 2024-07-06 08:43 | XMS_ITS | Encounter Summary ---
Author Organization [facility] Address [address] [place] [address] Phone Care Team Providers Care Geomatics Professor Name Role Phone Pop Bauman MD Primary Care Provider Mily cabrera Encounter Details Date Type Department Care Team (Late st Contact Info) Description 06/12/2016 [place] [facility] [place] [address] [place] [address] Family Medicine, Physician [address] [place] [address] Social History Tobacco Use Types Packs/Day Years [...] on filedocumented in this encounter Care Teams Geomatics Professor Relationship Specialty Start Date End Date Pop Bauman MD PCP - General 10/09/16 04/15/22 documented as of this encounter
--- OUTSIDE RECORDS SUMMARY | 2024-07-06 08:43 | XMS_ITS | Clinical Summary ---
Author Organization [facility] Address [address] [place] [address] Phone Care Team Providers Care Silo Worker Name Role Phone Unavailable Primary Care Provider Unavailabl e Allergies Active Allergy Reactions Criticality Noted Date Comments Flavoring Agent (Non-Screening) [place] Syrup Pineapple Medications glucose blood test strip BLOOD GLUCOSE TEST STRIP; use as directed; 08/26/2016; Active 08/27/19 17 Active ibuprofen 800 MG tabletIndications: Migraine with aura and without status migrainosus, not intractable Take one tablet with onset of migraine. Take zofran first. May repeat in 8 hours with food 24 tablet 1 06/16/19 18 Active FREESTYLE LITE test stripIndications:G lucose intolerance (impaired glucose tolerance) DIRECTED 50 each 3 09/22/19 18 Active FREESTYLE LITE deviceIndications: Glucose intolerance (impaired glucose tolerance) USE DIRECTED 1 each 09/22/19 18 Active FREESTYLE lancetsIndications :Glucose intolerance (impaired glucose tolerance) USE DIRECTED 1 each 09/22/19 18 Active EPINEPHrine 0.3 MG/0.3ML injection syringeIndications :Anaphylaxis, initial encounter Inject 0.3 mL (0.3 mg total) into the muscle Once PRN for anaphylaxis for up to 1 dose. 1 syringe Once prn anaphylaxis 2 Syringe 1 09/22/19 18 Active cetirizine (ZYRTEC ALLERGY) 10 MG tabletIndications: Allergic conjunctivitis of both eyes Take 1 tablet (10 mg total) by mouth nightly as needed for allergies. 30 tablet 1 12/16/19 18 Active hydrocortisone 1 % ointmentIndication s:Contact dermatitis of eyelid, unspecified laterality Apply topically 2 (two) times a day. 30 g 12/16/19 18 Active LOTEMAX 0.5 % ophthalmic suspension INSTILL 1 GTT INTO OU TID 0 12/18/19 18 Active hydrocortisone 0.2 % creamIndications:I ntrinsic eczema Apply topically 2 (two) times a day. 45 g 11 07/16/19 19 Active Active Problems Problem Noted Date Diagnosed Date Family history of diabetes mellitus 05/31/2018 Overview (05/31/2018): his MGM, is at risk Assessment & Plan (07/13/2018 3:37 PM EDT): Needs to lose wt. Refused influenza vaccine 01/04/2018 Intrinsic eczema 05/26/2017 Assessment & Plan (07/13/2018 3:36 PM EDT): None now Assessment & Plan (05/31/2018 4:08 PM EDT): Now all better Adjustment disorder with mixed anxiety and depre ssed mood 05/26/2017 Assessment & Plan (07/13/2018 3:36 PM EDT): Doing well. Will call therapist Assessment & Plan (05/31/2018 4:08 PM EDT): Doing well, in counseling, seeing Daquan Torres from [facility] Food allergy 05/26/2017 Overview (05/26/2017): to a ?syrup, should see supervisor receiving and processing Assessment & Plan (05/31/2018 4:10 PM EDT): Allergy to flavor syrups Obesity (BMI 30-39.9) 05/26/2017 Overview (05/26/2017): needs to have less sugar in diet. Assessment & Plan (07/13/2018 3:39 PM EDT): Has lost a few pounds. Good for you! But you need to: 1. Cut out hash browns and pineda or sausage at breakfast. Add 1 slice of toast, no butter, and fruit. 2. NO fish sticks. Have sandwiches with lite bread, no butter, no brunson, eat carrots and fruit and salad for lunch. 3. EXERCISE daily. Do Cardio dailly. 4. At dinner have lots of veggies, and salad with your rice and beans. Cut down the rice. No butter. No juice. Have water and milk. 5. Join weight watchers. Assessment & Plan (05/31/2018 4:26 PM EDT): With a positive family hx, should cut out soda, sugary foods Migraine with aura and witho ut status migrainosus, not intractable 05/26/2017 Assessment & Plan (07/13/2018 3:39 PM EDT): Much better off butalbital Assessment & Plan (05/31/2018 4:08 PM EDT): Now better, not sure how he got rid of them Assessment & Plan (05/26/2017 11:04 AM EDT): ?migraines, with sweating. ?related to blood sugar, make sure to have less sugar in diet, call if reoccurs. 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 Assessment & Plan (05/31/2018 4:09 PM EDT): Will continue with help, sometimes reading, at [facility] Resolved Problems Problem Noted Date Diagnosed Date Resolved Date Sweating abnormality 05/31/2018 019 Overview (05/31/2018): Mom has thought associated with low blood sugar, will check, endocrine said NO Tremor, essential 06/15/2017 07/13/2017 Mild intermittent asthma 05/26/201704/2018 Immunizations Immunization Administration Dates Next Due DTaP 5 10/26/2002, 1,05/08/1999,03/20,1998 HPV Vaccine 9 Valent 06/24/2016,02/19/2016,01/30 Hep A, ped/adol 02/19/2016,01/30/2015 Hep B, ped/adol 01/21/2000,08/14/1999,05/08/1999 Hib (PRP-T) 01/21/2000, 0,03/20/1999,12/19 IPV 10/26/2002, 1,03/20/1999,12/19 Influenza Split 12/05/2012, 2,11/24/2010,11/27 Influenza, injectable, MDCK, preservative free, quadrivalent 02/19/2016 Influenza, injectable, quadrivalent 01/30/2015 Influenza, injectable, quadr ivalent, preservative free 11/29/2013 Influenza, injectable, trivalent 11/08/2008,12/30 MMR 10/26/2002,10/16/1999 Meningococcal B Trumenba 05/31/2018 Meningococcal Conj (Menactra) MCV4P 01/30/2015,0 11/27/2009 Pneumococcal Conjugate 01/21/2000,10/16/1999 Tdap 11/27/2009 Varicella 09/29/2007,10/16/1999 Family History Medical History Relation Name Comments Migraines Mother Migraines Sister Relation Name Status Comments Brother Alive Brother: ADD/AD HD, Alive and well Cousin Cousin: Seizure disorder Father Alive Father: Elevate d cholesterol Mother Mother: Alive a nd well, Heart disease Other Family history of Obesity, Family history of Cancer, breast, No family history of *CVA/Stroke, Family history of Hyperlipidemia, No family history of *Sudden /IA under 55, Family history of Strabismus, No family history of Seizure disorder, No family history of Migraines, Family history of *Heart Disease, No family history of *Thrombophilia, Family history of ADD/ADHD, No family history of Deafness, Family history of Diabetes mellitus, Family history of Asthma Sister Alive Sister: Alive a nd well Social History Tobacco Use Types Packs/Day Years Used Date Smoking Tobacco: Never Smokeless Tobacco: Never Comments:Never smoker Alcohol Use Standard Drinks/Week Comments Never 0 (1 standard drink = 0.6 oz pur e alcohol) Sex and Gender Information Value Date Recorded Sex Assigned at Not on file Legal Sex Male 5:16 PM EDT Gender Identity Not on file Sexual Orientation Not on file Last Filed Vital Signs Vital Sign Reading Time Taken Comments Blood Pressure 113/73 07/13/2018 3:00 PM EDT Pulse 90 07/13/2018 3:00 PM EDT Temperature 36.1 ??C (97 ??F) 07/13/2018 3:00 PM EDT Respiratory Rate - - Oxygen Saturation 95% 12/28/2014 12:00 AM EDT Inhaled Oxygen Concentration - - Weight 112 kg (247 lb 9.6 oz) 07/13/2018 3:00 PM EDT Height 184.2 cm (6' 0.5 ) 05/31/2018 3:26 PM EDT Body Mass Index 33.12 05/31/2018 3:26 PM EDT Plan of Treatment Health Maintenance Due Date Last Done Comments Men B Vaccine (2 of 2 - Trum enba SCDM 2-dose series) 11/30/2018 05/31/2018 DTaP,Tdap,and Td Vaccines (7 - Td or Tdap) 11/28/2019 11/27/2009, 10/26/2002, 04/29/2000, Additional history exists Influenza Vaccines (#1) 2023 02/19/20 16, 01/30/2015, 11/29/2013, Additional history exists COVID-19 Vaccine (2023-2 5 season) 2023 HIB Vaccines Completed 01/21/2000, 10/1999, 03/20/1999, Additional history exists Hepatitis B Vaccines Completed 01/21/2000, 08/14/1999, 05/08/1999 Pneumococcal Vaccine Completed 01/21/2000, 10/16/19 00 IPV Vaccines Completed 10/26/2002, 03/2000, 03/20/1999, Additional history exists MMR Vaccines Completed 10/26/2002, 10/16/1999 Varicella Vaccines Completed 09/29/2007, 10/16/1999 Meningococcal Vaccine Completed 01/30/2015, 010 Hepatitis A Vaccines Completed 02/19/2016, 01/31/20 15 HPV Vaccines Completed 06/24/2016, 01/30, 01/30/2015 Insurance [facility] NON PCC
--- OUTSIDE RECORDS SUMMARY | 2024-07-06 08:43 | XMS_ITS | Encounter Summary ---
Author Organization [facility] Address [address] [place] [address] Phone Care Team Providers Care Court Of Appeals Judge Name Role Phone Pop Bauman MD Primary Care Provider Mily cabrera Encounter Details Date Type Department Care Team (Late st Contact Info) Description 03/25/2011 Documentation [facility] [place] [address] [place] [address] Family Medicine, Physician [address] [place] [address] Social History Tobacco Use Types Packs/Day Years [...] on filedocumented in this encounter Care Teams Court Of Appeals Judge Relationship Specialty Start Date End Date Pop Bauman MD PCP - General 10/09/16 04/15/22 documented as of this encounter
--- OUTSIDE RECORDS SUMMARY | 2024-07-06 08:43 | XMS_ITS | Encounter Summary ---
Author Organization [facility] Address [address] [place] [address] Phone Care Team Providers Care Credit Manager Name Role Phone Pop Bauman MD Primary Care Provider Mily cabrera Encounter Details Date Type Department Care Team (Late st Contact Info) Description 02/12/2016 Documentation [facility] [place] Family Medicine [address] [place] [address] Family Medicine, Physician [address] [place] [address] Social History Tobacco Use Types Packs/Day Years [...] on filedocumented in this encounter Care Teams Credit Manager Relationship Specialty Start Date End Date Pop Bauman MD PCP - General 10/09/16 04/15/22 documented as of this encounter
--- OUTSIDE RECORDS SUMMARY | 2024-07-06 08:43 | XMS_ITS | Clinical Summary ---
Author Organization [facility] Address [address] [place] [address] Phone Care Team Providers Care Oil Tester Name Role Phone Mook Abbott MD Primary Care Provider [phone] Allergies No known active allergies Medications betamethasone dipropionate 0.05 % lotion PLEASE SEE ATTACHED FOR DETAILED DIRECTIONS 4 Active clotrimazole-beta methasone (LOTRISONE) 1-0.05 % cream APPLY 1 A SMALL AMOUNT TWICE A DAY 4 Active fluocinonide (LIDEX) 0.05 % topical solution APPLY TO AFFECTED AREAS ON SCALP 1-2 TIMES DAILY NEEDED FOR ITCHING 4 Active ketoconazole (NIZORAL) 2 % shampoo APPLY TO SCALP LET SIT 10 MINUTES, LEATHER IN RINSE AND FOLLOW WITH HYDRATING SHAMPOO 3 TIMES WEEKLY 4 Active Active Problems Problem Noted Date Diagnosed Date Acquired hallux valgus of right foot 05/23/2024 Encounters Date Type Department Care Team Description 06/06/2024 Telephone Orthopedic Surgery [facility] [address] [phone] Shubham Allison DPM Schedule Surgery 05/23/2024 9:30 AM EDT Office Visit Orthopedic Surgery [facility] [address] [phone] Shubham Allison DPM Acquired hallux valgus of right foot (Primary Dx); Acquired hallux valgus of left foot from Last 3 Months Social History Tobacco Use Types Packs/Day Years Used Date Smoking Tobacco: Never Assessed Sex and Gender Information Value Date Recorded Sex Assigned at Not on file Legal Sex Male 9:26 AM EST Gender Identity Not on file Sexual Orientation Not on file Last Filed Vital Signs Vital Sign Reading Time Taken Comments Blood Pressure - - Pulse - - Temperature - - Respiratory Rate - - Oxygen Saturation - - Inhaled Oxygen Concentration - - Weight 116 kg (256 lb) 05/23/2024 9:21 AM EDT Height 189.2 cm (6' 2.49 ) 05/23/2024 9:21 AM ED T Body Mass Index 32.44 05/23/2024 9:21 AM EDT Plan of Treatment Upcoming Encounters Date Type Department Care Team (Late st Contact Info) Description 08/07/2024 8:00 AM EDT Consult Orthopedic Surgery [place] [address] [phone] Shubham Allison DPM [address] [address] 08/11/2024 7:30 AM EDT Hospital Encounter [facility] OR [address] [place] [phone] Shubham Allison DPM [address] [address] 08/11/2024 7:30 AM EDT - 08/11/2024 8:45 AM EDT Surgery [facility] OR [address] [place] [phone] Shubham Allison DPM [address] [phone] RIGHT BUNIONECTOMY [[id number] (CPT??)] 08/24/2024 1:30 PM EDT Office Visit Orthopedic Surgery [address] [phone] Shubham Allison DPM [address] [address] Scheduled Procedures Name Priority Associated Diagnoses Date/Ti me BUNIONECTOMY Acquired hallux valgus of right foot 08/11/2024 7:30 AM EDT Health Maintenance Due Date Last Done Comments Meningococcal B Vaccine (2 of 2 - Trumenba SCDM 2-dose series) 11/30/2018 05/31/2018 COVID-19 Vaccine ( season) 2023 03/26/2021, 07/30/2020, 07/02/2020 Cholesterol Screening (Lipid Panel) 01/04/2024 Depression Screening 01/04/2024 HIV Screening 01/04/2024 Hepatitis C Screening 01/04/2024 Social Influencers of Health Screening 01/04/2024 Influenza Vaccine (Season Ended) 2024 01/23/2020, 02/19/2016, 01/30/2015, Additional history exists DTaP,Tdap,and Td Vaccines (8 - Td or Tdap) 11/01/2030 11/01/2020, 11/27/2009, 10/26/2002, Additional history exists HIB Vaccines Completed 01/21/2000, 10/1999, 03/20/1999, Additional history exists Hepatitis B Vaccines Completed 01/21/2000, 08/14/1999, 05/08/1999 Pneumococcal Vaccine: Pediatrics (0 to 5 Years) and At-Risk Patients (6 to 64 Years) Completed 01/21/2000, 10/16/1999 IPV Vaccines Completed 10/26/2002, 03/2000, 03/20/1999, Additional history exists MMR Vaccines Completed 10/26/2002, 10/16/1999 Varicella Vaccines Completed 09/29/2007, 10/16/1999 Meningococcal ACWY Vaccine Completed 01/30/2015, Hepatitis A Vaccines Completed 02/19/2016, 01/31/20 15 HPV Vaccines Completed 06/24/2016, 01/30, 01/30/2015 RSV Immunization Patients Under 20 months Aged Out No longer eligible based on patient's age to complete this topic Insurance [facility] Care Teams Oil Tester Relationship Specialty Start Date End Date Mook Abbott MD [address] [place] [address] [address] [facility] [place] [address] PCP - General Internal Medicine 12/24/23
--- OUTSIDE RECORDS SUMMARY | 2024-07-06 08:43 | XMS_ITS | Encounter Summary ---
Author Organization [facility] Address [address] [place] [address] Phone Care Team Providers Care Product Inspection Supervisor Name Role Phone Pop Bauman MD Primary Care Provider Mily cabrera Encounter Details Date Type Department Care Team (Late st Contact Info) Description 01/13/2011 Documentation [facility] [place] Family Medicine [address] [place] [address] Family Medicine, Physician [address] [place] [address] Social History Tobacco Use Types Packs/Day Years [...] on filedocumented in this encounter Care Teams Product Inspection Supervisor Relationship Specialty Start Date End Date Pop Bauman MD PCP - General 10/09/16 04/15/22 documented as of this encounter
--- OUTSIDE RECORDS SUMMARY | 2024-07-06 08:43 | XMS_ITS | Encounter Summary ---
Author Organization [facility] Address [address] [place] [address] Phone Care Team Providers Care Technology Adoption Manager Name Role Phone Pop Bauman MD Primary Care Provider Mily cabrera Encounter Details Date Type Department Care Team (Late st Contact Info) Description 06/08/2016 Documentation [facility] [place] Family Medicine [address] [place] [address] Family Medicine, Physician [address] [place] [address] Social History Tobacco Use Types Packs/Day Years [...] on filedocumented in this encounter Care Teams Technology Adoption Manager Relationship Specialty Start Date End Date Pop Bauman MD PCP - General 10/09/16 04/15/22 documented as of this encounter
--- OUTSIDE RECORDS SUMMARY | 2024-07-06 08:43 | XMS_ITS | Encounter Summary ---
Author Organization [facility] Address [address] [place] [address] Phone Care Team Providers Care Classifying Machine Operator Name Role Phone Pop Bauman MD Primary Care Provider Mily cabrera Encounter Details Date Type Department Care Team ([facility] st Contact Info) Description 10/15/2016 Conversion Encounter [facility] - [address] [address] Social History Tobacco Use Types Packs/Day Years [...] on filedocumented in this encounter Care Teams Classifying Machine Operator Relationship Specialty Start Date End Date Pop Bauman MD PCP - General 10/09/16 04/15/22 documented as of this encounter
--- OUTSIDE RECORDS SUMMARY | 2024-07-06 08:43 | XMS_ITS | Encounter Summary ---
Author Organization [facility] Address [address] [place] [address] Phone Care Team Providers Care Online Media Buyer Name Role Phone Pop Bauman MD Primary Care Provider Mily cabrera Encounter Details Date Type Department Care Team (Late st Contact Info) Description 07/14/2012 Documentation [facility] [place] [address] [place] [address] Family Medicine, Physician [address] [place] [address] Social History Tobacco Use Types Packs/Day Years [...] on filedocumented in this encounter Care Teams Online Media Buyer Relationship Specialty Start Date End Date Pop Bauman MD PCP - General 10/09/16 04/15/22 documented as of this encounter
--- OUTSIDE RECORDS SUMMARY | 2024-07-06 08:43 | XMS_ITS | Encounter Summary ---
Author Organization [facility] Address [address] [place] [address] Phone Care Team Providers Care Assistant Finance Manager Name Role Phone Pop Bauman MD Primary Care Provider Mily cabrera Encounter Details Date Type Department Care Team (Late st Contact Info) Description 06/10/2012 Documentation [facility] [place] Family Medicine [address] [place] [address] Family Medicine, Physician [address] [place] [address] Social History Tobacco Use Types Packs/Day Years [...] on filedocumented in this encounter Care Teams Assistant Finance Manager Relationship Specialty Start Date End Date Pop Bauman MD PCP - General 10/09/16 04/15/22 documented as of this encounter
--- OUTSIDE RECORDS SUMMARY | 2024-07-06 08:43 | XMS_ITS | Encounter Summary ---
Author Organization [facility] Address [address] [place] [address] Phone Care Team Providers Care Reports Analysis Manager Name Role Phone Pop Bauman MD Primary Care Provider Mily cabrera Encounter Details Date Type Department Care Team (Late st Contact Info) Description 10/21/2016 Documentation [facility] [place] Family Medicine [address] [place] [address] Family Medicine, Physician [address] [place] [address] Social History Tobacco Use Types Packs/Day Years [...] on filedocumented in this encounter Care Teams Reports Analysis Manager Relationship Specialty Start Date End Date Pop Bauman MD PCP - General 10/09/16 04/15/22 documented as of this encounter
--- OUTSIDE RECORDS SUMMARY | 2024-07-06 08:43 | XMS_ITS | Encounter Summary ---
Author Organization [facility] Address [address] [place] [address] Phone Care Team Providers Care Nurse Practitioner Home Assessments Name Role Phone Pop Bauman MD Primary Care Provider Mily cabrera Encounter Details Date Type Department Care Team (Late st Contact Info) Description 06/12/2016 Documentation [facility] Family Medicine [address] [place] [address] Family Medicine, Physician [address] [place] [address] Social History Tobacco Use Types Packs/Day Years [...] on filedocumented in this encounter Care Teams Nurse Practitioner Home Assessments Relationship Specialty Start Date End Date Pop Bauman MD PCP - General 10/09/16 04/15/22 documented as of this encounter
== END 2024-07-06 09:00 | disposition home or self-care (01) ==
LOC: HO.HSMS 08:30
PROVIDERS: PCP Internal Medicine; Visit Provider Psychiatry & Neurology Neurology
DX: E34.8 Other specified endocrine disorders (principal); Q87.3 Congenital malformation syndromes involving early overgrowth; R06.83 Snoring; G47.10 Hypersomnia, unspecified
CPT/HCPCS: 99204; G2211

== ENCOUNTER → 2024-07-06 08:29 | Outpatient (BNVA) | payer OTHER, SELFPAY | PROVIDERS: PCP Internal Medicine; Visit Provider Psychiatry & Neurology Neurology | DX: E34.8 Other specified endocrine disorders (principal); Q87.3 Congenital malformation syndromes involving early overgrowth; R06.83 Snoring; G47.10 Hypersomnia, unspecified | CPT/HCPCS: 99202 ==

== ENCOUNTER → 2024-09-15 09:52 | Outpatient (BNV) | payer OTHER, SELFPAY | PROVIDERS: PCP Internal Medicine; Visit Provider Specialist | DX: E34.8 Other specified endocrine disorders (principal) | CPT/HCPCS: 70551 ==

== ENCOUNTER 2024-09-15 09:54 | Outpatient (REF) | payer OTHER, SELFPAY ==
--- NOTE | ~2024-09-15 | MR_ITS ---
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 No intra-axial mass or hemorrhage. No midline shift. No hydrocephalus. Vascular flow voids are intact. 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 The orbits are normal. The sinuses and mastoid air cells are clear. No focal bone lesion. IMPRESSION: No acute findings. This document has been electronically signed by: Pop Weinstein MD on 09/16/2024 08:30:13
--- OUTSIDE RECORDS SUMMARY | 2024-09-15 10:10 | XMS_ITS | Clinical Summary ---
Author Organization 175 [facility] Address [address] [place] [address] Phone Care Team Providers Care Disease Management Nurse Name Role Phone Mook Abbott MD Primary Care Provider [phone] Allergies No known active allergies Medications betamethasone dipropionate 0.05 % lotion PLEASE SEE ATTACHED FOR DETAILED DIRECTIONS 4 Active clotrimazole-bet amethasone (LOTRISONE) 1-0.05 % cream APPLY 1 A SMALL AMOUNT TWICE A DAY 4 Active fluocinonide (LIDEX) 0.05 % topical solution APPLY TO AFFECTED AREAS ON SCALP 1-2 TIMES DAILY NEEDED FOR ITCHING 4 Active ketoconazole (NIZORAL) 2 % shampoo APPLY TO SCALP LET SIT 10 MINUTES, LEATHER IN RINSE AND FOLLOW WITH HYDRATING SHAMPOO 3 TIMES WEEKLY 4 Active oxyCODONE (ROXICODONE) 5 mg immediate release tabletIndication s:Acquired hallux valgus of right foot Take 1 tablet (5 mg total) by mouth every 4 (four) hours if needed for severe pain. Max Daily Amount: 30 mg 35 tablet 5 Active acetaminophen (TYLENOL 8 HOUR) 650 mg 8 hr tablet Take 1 tablet (650 mg total) by mouth every 8 (eight) hours if needed for mild pain for up to 10 days. Do not crush, chew, or split. 30 tablet 5 08/22/19 25 ibuprofen (ADVIL,MOTRIN) 800 mg tablet Take 1 tablet (800 mg total) by mouth 3 (three) times a day. 90 each 06/1309/11/19 Active Problems Problem Noted Date Diagnosed Date Acquired hallux valgus of right foot 05/23/2024 Encounters Date Type Department Care Team Description 09/11/2024 1:45 PM EDT Office Visit Orthopedic Surgery [facility] [address] [phone] Shubham Allison DPM Post-operative state (Primary Dx) 08/24/2024 1:30 PM EDT Office Visit Orthopedic [facility] [address] [phone] Shubham Allison DPM Post-operative state (Primary Dx) 08/11/2024 7:30 AM EDT - 08/11/2024 8:[address] [facility] [place] [address] [place] [phone] Shubham Allison DPM RIGHT BUNIONECTOMY [97783 (CPT )] 08/11/2024 7:26 AM EDT Anesthesia Event [facility] OR [address] [place] [phone] Price Santos DO 08/11/2024 6:08 AM EDT - 08/11/2024 9:35 AM EDT Hospital Encounter [facility] OR [address] [place] [phone] Shubham Allison DPM Acquired hallux valgus of right foot Discharge Disposition: Home or Self Care 08/07/2024 8:00 AM EDT Consult Orthopedic Surgery [place] [address] [phone] Shubham Allison DPM Acquired hallux valgus of right foot (Primary Dx) 08/01/2024 Telephone Orthopedic Surgery [place] [address] [phone] Shubham Allison DPM Prior Authorization (08/21/24 Dr. Shubham Allison) from Last 3 Months Surgical History Surgery Date Site/Laterality Comments MIDDLE EAR SURGERY eardrum surgery Social History Tobacco Use Types Packs/Day Years Used Date Smoking Tobacco: Never Smokeless Tobacco: Never Tobacco Cessation:Counseling Given: Not Answered Sex and Gender Information Value Date Recorded Sex Assigned at Not on file Legal Sex Male 9:26 AM EST Gender Identity Not on file Sexual Orientation Not on file Obstetrics History Last Filed Vital Signs Vital Sign Reading Time Taken Comments Blood Pressure 120/77 08/11/2024 9:08 AM EDT Pulse 77 08/11/2024 9:08 AM EDT Temperature 36.1 C (97 F) 08/11/2024 8:38 AM EDT Respiratory Rate 20 08/11/2024 8:38 AM EDT Oxygen Saturation 96% 08/11/2024 9:08 AM EDT Inhaled Oxygen Concentration - - Weight 116 kg (256 lb) 08/07/2024 8:25 AM EDT Height 189.2 cm (6' 2.49 ) 08/07/2024 8:25 AM ED T Body Mass Index 32.44 08/07/2024 8:25 AM EDT Plan of Treatment Upcoming Encounters Date Type Department Care Team (Late st Contact Info) Description 11/13/2024 1:00 PM EDT Office Visit [facility] [address] [phone] Shubham Allison, DPM [address] [address] Health Maintenance Due Date Last Done Comments Meningococcal B Vaccine (2 of 2 - Trumenba SCDM 2-dose series) 11/30/2018 05/31/2018 COVID-19 Vaccine ( season) 2023 03/26/2021, 07/30/2020, 07/02/2020 Cholesterol Screening (Lipid Panel) 01/04/2024 Depression Screening 01/04/2024 HIV Screening 01/04/2024 Hepatitis C Screening 01/04/2024 Social Influencers of Health Screening 01/04/2024 Influenza Vaccine (#1) 2024 , 02/19/2016, 01/30/2015, Additional history exists DTaP,Tdap,and Td Vaccines (8 - Td or Tdap) 11/01/2030 11/01/2020, 11/27/2009, 10/26/2002, Additional history exists HIB Vaccines Completed 01/21/2000, 10/1999, 03/20/1999, Additional history exists Hepatitis B Vaccines Completed 01/21/2000, 08/14/1999, 05/08/1999 Pneumococcal Vaccine: Pediatrics (0 to 5 Years) and At-Risk Patients (6 to 49 Years) Completed 01/21/2000, 10/16/1999 IPV Vaccines Completed 10/26/2002, 03/2000, 03/20/1999, Additional history exists MMR Vaccines Completed 10/26/2002, 10/16/1999 Varicella Vaccines Completed 09/29/2007, 10/16/1999 Meningococcal ACWY Vaccine Completed 01/30/2015, Hepatitis A Vaccines Completed 02/19/2016, 01/31/20 HPV Vaccines Completed 06/24/2016, 01/30, 01/30/2015 RSV Immunization Patients Under 20 months Aged Out No longer eligible based on patient's age to complete this topic Medical Devices Implanted Type Area Manager Shell Device Identifier Shelf Expiration Date Model / Serial / Lot Nail Minibunion Offset Short 3.5mm - Sna - [id number] Implanted:Qty: 1 on 08/11/2024 by Shubham Allison DPM at [facility] Internal and External Fixation Right: First Toe [employer] 04/08/2028 [id number] / NA / [id number] Screw Non Lock Minibunion 2.7x16mm - Sna - [id number] Implanted:Qty: 1 on 08/11/2024 by Shubham Allison DPM at [facility] Internal and External Fixation Right: First Toe [employer] 04/07/2028 [id number] NL / NA / [id number] Screw Locking Minibunion 3x22mm - Sna - [id number] Implanted:Qty: 1 on 08/11/2024 by Shubham Allison DPM at [facility] Spinal Hardware Right: First Toe [employer] 05/01/2028 [id number] LK / NA / [id number] Headless Screw [id number] Implanted:Qty: 1 on 08/11/2024 by Shubham Allison DPM at [facility] Right: First Toe OTHER 04.333.22 6 / NA / NA Procedures Procedure Name Priority Date/Time Associated Diagnosis Comments XR FOOT 3+ VIEWS RIGHT Routine 09/11/2024 2:12 PM EDT Post-operative state XR FOOT 3+ VIEWS RIGHT Routine 08/24/2024 1:29 PM EDT Post-operative state XR FOOT 3+ VIEWS RIGHT Routine 08/11/2024 9:01 AM EDT TISSUE EXAM Routine 08/11/2024 8:20 AM EDT Acquired hallux valgus of right foot AR CORRECTION HALLUX VALGUS W SESAMOIDECTOMY W DOUBLE OSTEOTOMY 08/11/2024 7:28 AM EDT Acquired hallux valgus of right foot Case Notes MINI C-ARM, CROSSROADS MINI BUNION, 2-5 CANNULATED SCREWS from Last 3 Months Results * XR Foot 3+ Views Right (09/11/2024 2:12 PM EDT) Only the most recent of3 resultswithin the time period is included. Anatomical Region Laterality Modality Lower Extremities, Foot Right Computed Radiography Narrative 09/11/2024 6:16 PM EDT Right foot 3 views Stable postoperative changes hardware intact correction deformity maintained us Shubham Allison DPM IMG XR PROCEDURES Final R esult * Tissue exam (08/11/2024 8:20 AM EDT) Final Diagnosis Foot, right, proximal phalanx-bunio nectomy: --DEGENERATIV E OSTEOARTHROPA THY, CONSISTENT WITH HALLUX VALGUS / EXOSTOSIS 08/15/2024 1:36 PM EDT [facility] Gross Description A. Foot, Right, proximal phalanx: Labeled proximal foot R . Received in formalin is a thin yellow, 0.8 cm in greatest diameter shaving of bone which is submitted in toto in one cassette, one piece, following decalcificati on. TS 08/15/2024 1:36 PM EDT [facility] Disclaimer Unless otherwise specified, all tissue is 10% NB formalin fixed and paraffin embedded. 08/15/2024 1:36 PM EDT [facility] Bone Structure of right foot / Unknown 08/11/2024 8:20 AM EDT 08/11/2024 9:43 AM EDT us Shubham Allison DPYady LAB PATHOLOGY ORDERABLES Final Result [facility] [address] [place] [address], [place] [phone] from Last 3 Months Insurance [employer] Care Teams Disease Management Nurse Relationship Specialty Start Date End Date Mook Abbott MD [address] [place] [address] Dr Guillen [address] [facility] [place] [address] PCP - General Internal Medicine 12/24/23
== END 2024-09-15 09:55 | disposition home or self-care (01) ==
LOC: HO.MRI 09:54
PROVIDERS: PCP Internal Medicine; Visit Provider Psychiatry & Neurology Neurology
DX: E34.8 Other specified endocrine disorders (principal); Q87.3 Congenital malformation syndromes involving early overgrowth
CPT/HCPCS: 70551

== ENCOUNTER → 2024-09-19 13:39 | Outpatient (REF) | payer OTHER, SELFPAY ==
--- OUTSIDE RECORDS SUMMARY | 2024-09-19 14:49 | XMS_ITS | Clinical Summary ---
Author Organization 175 [facility] Address [address] [place] [address] Phone Care Team Providers Care Clean Out Driller Name Role Phone Mook Abbott MD Primary Care Provider [phone] Allergies No known active allergies Medications betamethasone [...] 1:45 PM EDT Office Visit Orthopedic Surgery [facility] [address] [phone] Shubham Allison DPM Post-operative state (Primary Dx) 08/24/2024 1:30 PM EDT Office Visit Orthopedic [facility] [address] [phone] Shubham Allison DPM Post-operative state (Primary Dx) 08/11/2024 7:30 AM EDT - 08/11/2024 8:[address] [facility] OR [address] [place] [phone] Shubham Allison DPM RIGHT BUNIONECTOMY [46662 (CPT )] 08/11/2024 7:26 AM EDT Anesthesia Event [facility] OR [address] [place] [phone] Price Santos DO 08/11/2024 6:08 AM EDT - 08/11/2024 9:35 AM EDT Hospital Encounter [facility] OR [address] [place] [phone] Shubham Allison DPM Acquired hallux valgus of right foot Discharge Disposition: Home or Self Care 08/07/2024 8:00 AM EDT Consult Orthopedic Surgery [place] [address] [phone] Shubham Allison DPM Acquired hallux valgus of right foot (Primary Dx) 08/01/2024 Telephone Orthopedic Surgery [place] [address] [phone] Shubham Allison DPM Prior Authorization (08/21/24 Dr. [...] PM EDT Office Visit Orthopedic [facility] [place] [address] [phone] Shubham Allison, DPM [address] [address] Health Maintenance Due Date Last Done Comments Meningococcal B Vaccine (2 of 2 - Trumenba SCDM 2-dose series) 11/30/2018 05/31/2018 COVID-19 Vaccine ( season) 2023 03/26/2021, 07/30/2020, 07/02/2020 Cholesterol Screening (Lipid Panel) 01/04/2024 HIV Screening 01/04/2024 Hepatitis C Screening 01/04/2024 Social Influencers of Health Screening 01/04/2024 Depression Screening 03/01/2024 Influenza Vaccine (#1) 2024 , 02/19/2016, 01/30/2015, [...] this topic Medical Devices Implanted Type Area Photo Print Specialist Device Identifier Shelf Expiration Date Model / Serial / Lot Nail Minibunion Offset Short 3.5mm - Sna - [id number] Implanted:Qty: 1 on 08/11/2024 by Shubham Allison DPM at [facility] Internal and External Fixation Right: First Toe [employer] 04/08/2028 [id number] / NA / [id number] Screw Non Lock Minibunion 2.7x16mm - Sna - [id number] Implanted:Qty: 1 on 08/11/2024 by Shubham Allison DPM at [facility] Internal and External Fixation Right: First Toe [employer] 04/07/2028 [id number] NL / NA / [id number] Screw Locking Minibunion 3x22mm - Sna - [id number] Implanted:Qty: 1 on 08/11/2024 by Shubham Allison DPM at [facility] Spinal Hardware Right: First Toe [employer] 05/01/2028 [id number] LK / NA / [id number] Headless Screw [id number] Implanted:Qty: 1 on 08/11/2024 by Shubham Allison DPM at [facility] Right: First Toe OTHER 04.333.22 6 [...] EDT Acquired hallux valgus of right foot ID CORRECTION HALLUX VALGUS W SESAMOIDECTOMY W DOUBLE [...] VALGUS / EXOSTOSIS 08/15/2024 1:36 PM EDT [facility] Gross Description A. Foot, Right, proximal phalanx: Labeled proximal foot R . Received in formalin is a thin yellow, 0.8 cm in greatest diameter shaving of bone which is submitted in toto in one cassette, one piece, following decalcificati on. TS 08/15/2024 1:[address] [facility] Disclaimer Unless otherwise specified, all tissue is 10% NB formalin fixed and paraffin embedded. 08/15/2024 1:[address] [facility] Bone Structure of right foot / Unknown 08/11/2024 8:20 AM EDT 08/11/2024 9:43 AM EDT us Shubham Allison DPYady LAB PATHOLOGY ORDERABLES Final Result [facility] [address] [place] [address], [place] [phone] from Last 3 Months Insurance [facility] [employer] Care Teams Clean Out Driller Relationship Specialty Start Date End Date Mook Abbott MD [address] [place] [address] Dr Guillen [address] [facility] [place] [address] PCP - General Internal Medicine 12/24/23
== END ==
LOC: HO.SL 13:39
PROVIDERS: PCP Internal Medicine; Visit Provider Psychiatry & Neurology Neurology
DX: R06.83 Snoring (principal); G47.10 Hypersomnia, unspecified; G47.33 Obstructive sleep apnea (adult) (pediatric)
CPT/HCPCS: 95806

== ENCOUNTER → 2024-09-19 13:47 | Outpatient (BNV) | payer OTHER, SELFPAY | PROVIDERS: PCP Internal Medicine; Visit Provider Psychiatry & Neurology Neurology | DX: G47.33 Obstructive sleep apnea (adult) (pediatric) (principal); R06.83 Snoring | CPT/HCPCS: 95806 ==

== ENCOUNTER 2024-12-26 12:49 | Outpatient (AMB) | payer OTHER, SELFPAY ==
[2024-12-26 12:58] VITALS: BP 136/88; PULSE 110; TEMP 36.3; O2SAT 96; BMI 35.1
--- NOTE | 2024-12-26 12:58 | MHC.PC.OV ---
Vital Signs 12/26/24 12:58 Height 6 ft 1 in Weight 266 lb 4 oz BMI 35.1 BP 136/88 Blood Pressure Location Lt brachial Position Sitting Pulse 110 H Pulse Source Pulse Oximeter Temp 97.3 F Temp Source Temporal Artery Scan Pulse Oximetry (%) 96 Oxygen Delivery Method Room Air Intake Visit Reasons: Annual Exam Accompanied by: Mother Allergies No Known Allergies Allergy (Verified 12/26/24 13:02) Medication List - Last Reconciled 12/26/24 by Mook Abbott MD loratadine (Claritin) 10 mg PO DAILY multivitamin 1 tab PO DAILY Tobacco use date assessed: 12/26/24 Dental Screening Dental Screen Date: 12/26/24 Did you have a dental visit in the last 12 months?: Yes Did you have a dental problem in the last 6 months where you did not have access to dental care?: No Was dental information given to patient?: Patient has dentist HPI Annual Exam HPI Details dizzy , nausea and vomiting PFSH Medical History Hypersomnia Snoring Sotos' syndrome Anxiety and depression Migraine Obesity (BMI 30-39.9) Surgical History History of MRSA infection History of ear surgery History of toe surgery Family History Mother Skin cancer Myocardial infarction Maternal Grandmother Skin cancer Maternal Grandfather Myocardial infarction Maternal Aunt Melanoma Brain cancer Primary cancer of bone marrow Social History Housing: House Alcohol intake: never Patient Tobacco Use Status: Never used Tobacco e-Cigarette/Vaping Use: Never Used Current occupational status: unemployed Cognitive needs: No Hearing needs: No Vision needs: No Questionnaire PHQ-9 Over the last 2 weeks, how often have you been bothered by any of the following problems? 1. Little interest or pleasure in doing things: several days 2. Feeling down, depressed, or hopeless: not at all 3. Trouble falling or staying asleep, or sleeping too much: more than half the days 4. Feeling tired or having little energy: several days 5. Poor appetite or overeating: nearly every day 6. Feeling bad about yourself - or that you are a failure or have let yourself or your family down: not at all 7. Trouble concentrating on things, such as reading the newspaper or watching television: not at all 8. Moving or speaking so slowly that other people could have noticed. Or the opposite - being so fidgety or restless that you have been moving around a lot more than usual: not at all 9. Thoughts that you would be better off or of hurting yourself in some way: not at all Total score: 7 Depression Screening Interpretation: Positive Depression Screening Done: Yes 00676 - PHQ-9 Billing: Yes Source: Developed by Drs. Miguel Angel Edwards, Kristi Muniz, Que Vides and colleagues, with an educational oracio from [employer]. Thrive Questionnaire Date Thrive assessed: 12/26/24 I am a: Patient What is your living situation today?: I choose not to answer this question Within the past 12 months, did the food you bought not last and you didn't have the money to get more?: I choose not to answer this question Within the past 12 months, did you worry whether your food would run out before you got money to buy more?: I choose not to answer this question Do you have trouble paying for medicines?: No Do you have trouble getting transportation to medical appointments?: I choose not to answer this question Do you have trouble paying your heating and electricity bill?: I choose not to answer this question Do you have trouble taking care of your child, family member or friend?: I choose not to answer this question Do you have trouble with day-to-day activities such as bathing, preparing meals, shopping, managing finances, etc.?: I choose not to answer this question Are you currently unemployed and looking for a job?: I choose not to answer this question Are you interested in more education?: I choose not to answer this question Please select the resources that you would like help with: None Currently or been in a relationship where the following occur: I choose not to answer THRIVE Score: 0 AUDIT C Alcohol Use Questionnaire (AUDIT-C) 1. How often do you have a drink containing alcohol?: Never 3. How often do you have six or more drinks on one occasion?: Never Total Score: 0 SUZY-7 AMB Questionnaire SUZY-7 Date SUZY - 7 assessed: 12/26/24 Feeling nervous, anxious, or on edge: 1 = Several days Not being able to stop or control worryin = Several days Worrying too much about different things: 2 = More than half the days Trouble relaxin = Not at all Being so restless that it is hard to sit still: 1 = Several days Becoming easily annoyed or irritable: 1 = Several days Feeling afraid as if something awful might happen: 0 = Not at all Total SUZY-7 score (0-4 normal; 5-9 mild; 10-14 moderate; 15-21 severe): 6 Source: Developed by Drs. Miguel Angel Edwards, Kristi Muniz, Que Vides and colleagues, with an educational oracio from [employer]. SUZY-7 Assessment Billing SUZY-7 Assessment Tool: SUZY-7 Assessment 95005 Review of Systems Const Denies poor appetite and Denies weakness Eyes Denies no additional complaints ENT Reports Normal hearing present, Denies dizziness, Denies nasal congestion, Denies tinnitus and Denies sore throat Card Denies chest pain, Denies syncope, Denies rapid heart rate and Denies dyspnea Resp Denies cough and Denies dyspnea GI Denies change in stool character, Reports constipation, Denies diarrhea, Denies nausea and Denies vomiting Denies dysuria and Denies urinary frequency Neuro Reports Normal hearing present, Denies confusion, Denies dizziness, Denies syncope and Denies weakness Psych Denies confusion Physical exam (Primary Care) Vital Signs: Last Vital Signs Temp 97.3 F 12/26/24 12:58 Pulse 110 H 12/26/24 12:58 BP 136/88 12/26/24 12:58 Pulse Ox 96 12/26/24 12:58 Oxygen Delivery Method Room Air 12/26/24 12:58 BMI result Body Mass Index 35.1 Tobacco/Smoking Status: Tobacco use Status Tobacco use date assessed 12/26/24 12/26/24 13:03 Patient Tobacco Use Status Never used Tobacco 12/26/24 13:03 e-Cigarette/Vaping Use Never Used 12/26/24 13:03 PHQ-9: PHQ-9 Score PHQ-9: Total score 7 12/26/24 13:11 Depression Screening Interpretation: Positive Thrive Assessment: Date of Thrive Assessment Date Thrive assessed 12/26/24 12/26/24 13:03 Currently or been in a relationship where the following occur: I choose not to answer Const General: No confusion Orientation/consciousness: No confusion HENMT Head: Yes normocephalic Ears: external ears normal and TM's normal bilaterally Face and sinus: Yes normal facial exam Mouth: moist mucous membranes Throat: Yes tonsils normal Eyes Conjunctivae: conjunctivae normal Pupils: Equal, round and reactive pupils present and Pupil accommodation reflex normal Direct Ophthalmoscopy: normal light reflex Neck Neck: No lymphadenopathy Thyroid: Thyroid normal Chest Chest palpation & inspection: normal inspection of the chest Resp Effort & Inspection: normal respiratory effort and no audible wheezes Auscultation: clear to auscultation bilaterally, no crackles, no wheezes and lung sounds not diminished Cardio Rate: regular rate Rhythm: regular rhythm Peripheral pulses: radial pulses present and dorsalis pedis present GI Palpation (GI): no masses Auscultation: normal bowel sounds and normoactive bowel sounds Rectal Exam - Male: Yes deferred Skin General skin exam: no rashes or lesions noted Rashes: no rashes Neuro General: No confusion Cranial nerves: Yes Equal, round and reactive pupils present and Yes Normal hearing present Cognition (Neuro): normal cognition Gait exam (Neuro): Normal gait present Motor exam (neuro): 5/5 motor strength present throughout Deep tendon reflexes (DTR's): Right brachioradialis reflex intensity grade: 2+, Left brachioradialis reflex intensity grade: 2+, Right patellar reflex intensity grade: 2+ and Left patellar reflex intensity grade: 2+ Extrem General: No edema Coding Level of Care Code Est Pt Prev Care 18-39y(96031) Diagnoses Annual physical exam Z00.00 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 His medical history is significant for Anderson syndrome and generalized anxiety disorder. He reports significant weight gain since his last visit in November of the previous year. The patient is status post a right double osteotomy bunionectomy on August 11, 2024, for bilateral bunions and is followed by podiatry. A prior foot X-ray showed expected post-operative changes with intact hardware. He reports his right foot is doing a lot better post-surgery. A sleep study in August 2024 revealed mild obstructive sleep apnea, with an Apnea-Hypopnea Index (AHI) of 10. He was prescribed an AutoPAP machine but is not using it. He follows with neurology and had a brain MRI in August 2024 which was unremarkable aside from an incidental pineal cyst. He reports intermittent dizziness, which he believes is emotional or related to low blood sugar. His last blood work in November 2021 showed a normal complete blood count, electrolytes, renal function, blood sugar, and a normal A1c. A cholesterol panel from 2019 showed an LDL of 115. His current medications include an allergy medication (Claritin or Pippa) and multivitamins. He has no known drug allergies. The patient denies any use of alcohol, tobacco, or recreational drugs. Family history is notable for myocardial infarction and skin cancer in his mother, myocardial infarction in his grandfather, and brain cancer, melanoma, and bone cancer in an aunt. Health Maintenance The patient is a 24-year-old male here for a wellness visit. He has gained a significant amount of weight and is encouraged to improve his diet and exercise. A referral will be placed to a casino floorperson. Fasting blood work will be ordered to assess blood count, kidney function, electrolytes, sugar, thyroid function, cholesterol, and B12 levels. He is up to date on his tetanus shot and declined the flu shot. He was advised to schedule an eye examination. Will follow up on lab results. Social History - Substance Use: Denies any history of alcohol, tobacco, or recreational drug use. - Nutrition and Weight Management: Reports significant weight gain since last visit. A referral to a casino floorperson was requested and provided. He reports adequate water intake. - Level of Activity: Patient has been encouraged to increase physical activity, especially now that his foot is recovering from surgery. Review of Systems - Constitutional: Reports weight gain. Denies fever or syncope. - Neurological: Reports intermittent dizziness, which he believes is emotional or related to low blood sugar. Denies vertigo. - HEENT: Reports a runny nose due to allergies. Denies problems with swallowing or hearing. - Cardiovascular: Denies chest pain or heaviness. - Respiratory: Denies waking up short of breath. - Gastrointestinal: Reports occasional nausea and vomiting. Denies heartburn or problems with bowel movements. - Genitourinary: Reports nocturia once per night. Denies other urinary problems. - Musculoskeletal: Reports his right foot is feeling much better after surgery. Physical Exam General: Cooperative, healthy appearing, comfortable, no acute distress and well developed Orientation: Patient oriented x3 Limitations: No limitations Head: Normal to inspection Ears: Hearing grossly normal bilaterally Nose: Normal external nose present Face and sinus: Normal facial exam Eyes: Appearance normal, both eyes and all related structures Neck: Normal visual inspection and Yes full ROM Respiratory: Normal respiratory effort and able to speak in complete sentences. Clear to auscultation bilaterally Cardiovascular: Regular rate and rhythm. Normal S1 and S2 GI: Normal to inspection. Soft to palpation and nontender Skin: No rashes or lesions noted Neuro: Patient oriented x3 Extremities: Normal to inspection, surgical site on right foot is healing well with no redness, only scars present. No redness noted. Results - Labs (November 2021): Normal complete blood count, electrolytes, renal function, blood sugar, and hemoglobin A1c. - Labs (2019): LDL cholesterol of 115. - Imaging (August 2024): MRI of the brain showed no acute findings and an incidental pineal cyst. - Imaging (prior): Foot X-ray post-bunionectomy showed staple, post-op changes, intact hardware, and maintained reduction of deformity. - Tests (August 2024): Sleep study showed mild obstructive sleep apnea with an AHI of 10. Plan Patient was informed and verbally consented to the use of an ambient scribe for clinic note documentation during this visit. 1. Obesity The patient is obese and has gained a significant amount of weight since his last visit. He was counseled on diet and exercise and a referral was placed for a casino floorperson as requested. Weight loss was also discussed as a primary treatment for his mild obstructive sleep apnea. 2. Mild Obstructive Sleep Apnea The patient has a diagnosis of mild GEORGE with an AHI of 10 and was prescribed an Auto-PAP machine, which he is not using. He was counseled on the long-term cardiac risks of untreated sleep apnea and the importance of using the device. He was also advised that significant weight loss is an effective alternative treatment. 3. Allergic Rhinitis The patient reports runny nose due to allergies, which are not fully controlled with oral antihistamines. A prescription for a nasal spray was sent, and the patient was instructed on its proper use. 4. Dizziness The patient reports intermittent dizziness, which he attributes to emotional triggers and possible low blood sugar. He was advised to keep a log to track the timing and circumstances of his dizzy spells. He was also advised to carry food with him to prevent potential hypoglycemic episodes. Planned lab work will help to rule out metabolic causes. 5. Status Post Right Bunionectomy The patient is recovering well from his right bunionectomy and reports his foot is feeling much better. He will continue to follow with his podiatry/business applications specialist as needed. Discussion Notes I reviewed the patient's overall health and discussed a wellness plan. We discussed his diagnosis of mild obstructive sleep apnea, and I stressed the importance of using his CPAP machine to mitigate long-term cardiac risks, also noting that significant weight loss could serve as an alternative treatment. Regarding his complaint of dizziness, I advised him to maintain a symptom diary and to carry snacks to prevent potential hypoglycemia. To address his significant weight gain and interest in a dietary plan, I placed a referral to a casino floorperson. For his allergic rhinitis, I prescribed a nasal spray and provided detailed instructions on its proper administration. I ordered a panel of fasting blood work, including a CBC, CMP, lipid panel, TSH, and B12. We confirmed he is up to date on his tetanus vaccination, and I noted his refusal of the flu shot. I advised him I would call with any significant lab abnormalities and that he should contact the office if he has not received results within 3-4 days. Patient Instructions - Please get the fasting blood work that was ordered. - You will need to avoid food for 8 hours before the blood test, so it is best to go in the morning. Remember to bring a snack with you for after the test is done. - Use the new nasal spray prescribed for your allergies. Blow your nose, look down, and spray twice in each nostril daily. When symptoms improve, you can reduce this to one spray in each nostril. - A referral has been sent to a casino floorperson to help you create a dietary plan. - It is very important to use your CPAP machine for sleep apnea every night, as this can prevent heart problems in the long run. Losing weight may also help your sleep apnea. - Keep a log of your dizzy spells, noting the date, time, and what was happening when you felt dizzy. - Continue to focus on a healthy diet and staying active. - Please schedule an eye exam. - Please contact our office if you have not heard about your lab results within 3 to 4 days. Orders: Orders Complete Blood Count Auto Diff Today F41.1 - Generalized anxiety disorder Hemoglobin A1c Today F41.1 - Generalized anxiety disorder Thyroid Stimulating Hormone Today F41.1 - Generalized anxiety disorder Magnesium Today F41.1 - Generalized anxiety disorder Comprehensive Met. Panel Today F41.1 - Generalized anxiety disorder Free T4 (Free Thyroxine) Today F41.1 - Generalized anxiety disorder Lipid Panel Today E78.00 - Pure hypercholesterolemia, unspecified, F41.1 - Generalized anxiety disorder Vitamin B12 and Folate Today F41.1 - Generalized anxiety disorder UA CC w/rflx Micro + Cult Today F41.1 - Generalized anxiety disorder, R30.0 - Dysuria Referrals Nutrition/Dietitian Referral E66.9 - Obesity, unspecified Medications: New fluticasone propionate 50 mcg/actuation (Flonase Allergy Relief) administer into each nostril 2 sprays intranasal DAILY 16 grams 3RF F41.1 - Generalized anxiety disorder
--- OUTSIDE RECORDS SUMMARY | 2024-12-26 16:10 | XMS_ITS | Encounter Summary ---
Author Organization [facility] Address [address] [place] [phone] Phone Care Team Providers Care Sustainable Agriculture Faculty Name Role Phone Pop Bauman MD Primary Care Provider Mily cabrera Encounter Details Date Type Department Care Team (Late st Contact Info) Description 03/25/2011 Documentation [facility] [place] Family Medicine [address] [place] [address] Family Medicine, Physician [address] [place] [address] Social History Tobacco Use Types Packs/Day Years [...] on filedocumented in this encounter Care Teams Sustainable Agriculture Faculty Relationship Specialty Start Date End Date Pop Bauman MD PCP - General 10/09/16 04/15/22 documented as of this encounter
--- OUTSIDE RECORDS SUMMARY | 2024-12-26 16:10 | XMS_ITS | Encounter Summary ---
Author Organization [facility] Address [address] [place] [phone] Phone Care Team Providers Care Top Inventory Control Executive Name Role Phone Pop Bauman MD Primary Care Provider Mily cabrera Encounter Details Date Type Department Care Team (Late st Contact Info) Description 06/09/2016 Documentation [facility] [place] [address] [place] [address] Family Medicine, Physician [address] [place] [address] Social History Tobacco Use Types Packs/Day Years [...] on filedocumented in this encounter Care Teams Top Inventory Control Executive Relationship Specialty Start Date End Date Pop Bauman MD PCP - General 10/09/16 04/15/22 documented as of this encounter
--- OUTSIDE RECORDS SUMMARY | 2024-12-26 16:10 | XMS_ITS | Encounter Summary ---
Author Organization [facility] Address [address] [place] [phone] Phone Care Team Providers Care Branch Account Manager Name Role Phone Pop Bauman MD Primary Care Provider Mily cabrera Encounter Details Date Type Department Care Team (Late st Contact Info) Description 02/16/2011 [place] [facility] [place] [address] [place] [address] Family Medicine, Physician [address] [place] [address] Social History Tobacco Use Types Packs/Day Years [...] on filedocumented in this encounter Care Teams Branch Account Manager Relationship Specialty Start Date End Date Pop Bauman MD PCP - General 10/09/16 04/15/22 documented as of this encounter
--- OUTSIDE RECORDS SUMMARY | 2024-12-26 16:10 | XMS_ITS | Encounter Summary ---
Author Organization [facility] Address [address] [place] [address] Phone Care Team Providers Care Associate Partner Name Role Phone Pop Bauman MD Primary Care Provider Mily cabrera Encounter Details Date Type Department Care Team (Late st Contact Info) Description 06/10/2012 Documentation [facility] [place] [address] [place] [address] Family Medicine, Physician [address] [place] [address] Social History Tobacco Use Types Packs/Day Years [...] on filedocumented in this encounter Care Teams Associate Partner Relationship Specialty Start Date End Date Pop Bauman MD PCP - General 10/09/16 04/15/22 documented as of this encounter
--- OUTSIDE RECORDS SUMMARY | 2024-12-26 16:10 | XMS_ITS | Encounter Summary ---
Author Organization [facility] Address [address] [place] [phone] Phone Care Team Providers Care Imaging Assistant Name Role Phone Pop Bauman MD Primary Care Provider Mily cabrera Encounter Details Date Type Department Care Team (Late st Contact Info) Description 06/08/2016 Documentation [facility] [facility] [place] [address] [place] [address] Family Medicine, Physician [address] [place] [address] Social History Tobacco Use Types Packs/Day Years [...] on filedocumented in this encounter Care Teams Imaging Assistant Relationship Specialty Start Date End Date Pop Bauman MD PCP - General 10/09/16 04/15/22 documented as of this encounter
--- OUTSIDE RECORDS SUMMARY | 2024-12-26 16:10 | XMS_ITS | Encounter Summary ---
Author Organization [facility] Address [address] [place] [phone] Phone Care Team Providers Care Social Sciences Department Chair Name Role Phone Pop Bauman MD Primary Care Provider Mily cabrera Encounter Details Date Type Department Care Team (Late st Contact Info) Description 10/21/2016 Documentation [facility] [place] Family Medicine [address] [place] [address] Family Medicine, Physician [address] [place] [address] Social History Tobacco Use Types Packs/Day Years [...] on filedocumented in this encounter Care Teams Social Sciences Department Chair Relationship Specialty Start Date End Date Pop Bauman MD PCP - General 10/09/16 04/15/22 documented as of this encounter
--- OUTSIDE RECORDS SUMMARY | 2024-12-26 16:10 | XMS_ITS | Encounter Summary ---
Author Organization [facility] Address [address] [place] [address] Phone Care Team Providers Care Dental Treatment Coordinator Name Role Phone Pop Bauman MD Primary Care Provider Mily cabrera Encounter Details Date Type Department Care Team (Late st Contact Info) Description 02/12/[address] [facility] Family Medicine [address] [place] [address] Family Medicine, Physician [address] [place] [address] Social History Tobacco Use Types Packs/Day Years [...] on filedocumented in this encounter Care Teams Dental Treatment Coordinator Relationship Specialty Start Date End Date Pop Bauman MD PCP - General 10/09/16 04/15/22 documented as of this encounter
--- OUTSIDE RECORDS SUMMARY | 2024-12-26 16:10 | XMS_ITS | Clinical Summary ---
Author Organization [facility] Address [address] [place] [address] Phone Care Team Providers Care Cloth Framer Name Role Phone Unavailable Primary Care Provider Unavailabl e Allergies Active Allergy Reactions Criticality Noted Date Comments Flavoring Agent (Non-Screening) [place] Syrup Pineapple Medications glucose blood test strip [...] well, in counseling, seeing Daquan Torres from [facility] Food allergy 05/26/2017 Overview (05/26/2017): to a ?syrup, should see transitional nurse Assessment & Plan (05/31/2018 4:10 PM EDT): [...] 4:26 PM EDT): Doing ok, going to [facility] 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 Assessment & Plan (05/31/2018 4:09 PM EDT): Will continue with help, sometimes reading, at [facility] Resolved Problems Problem Noted Date Diagnosed Date [...] of Hyperlipidemia, No family history of *Sudden /OH under 55, Family history of Strabismus, No [...] 90 07/13/2018 3:00 PM EDT Temperature 36.1 C (97 F) 07/13/2018 3:00 PM EDT Respiratory Rate - [...] 04/29/2000, Additional history exists Influenza Vaccines (#1) 2024 02/19/20 16, 01/30/2015, 11/29/2013, Additional history exists COVID-19 Vaccine (2024-2 6 season) 2024 HIB Vaccines Completed 01/21/2000, 10/1999, 03/20/1999, Additional history exists Hepatitis B Vaccines Completed 01/21/2000, 08/14/1999, 05/08/1999 Pneumococcal Vaccine Completed 01/21/2000, 10/16/19 00 IPV Vaccines Completed 10/26/2002, 03/2000, 03/20/1999, Additional history exists MMR Vaccines Completed 10/26/2002, 10/16/1999 Varicella Vaccines Completed 09/29/2007, 10/16/1999 Meningococcal Vaccine Completed 01/30/2015, 010 Hepatitis A Vaccines Completed 02/19/2016, 01/31/20 15 HPV Vaccines Completed 06/24/2016, 01/30, 01/30/2015 Insurance [facility] NON PCC
--- OUTSIDE RECORDS SUMMARY | 2024-12-26 16:10 | XMS_ITS | Clinical Summary ---
Author Organization [facility] Address [address] [place] [address] Phone Care Team Providers Care Camp Nurse Name Role Phone Mook Abbott MD Primary Care Provider [phone] Allergies No known active allergies Medications betamethasone [...] Active oxyCODONE (ROXICODONE) 5 mg immediate release tabletIndications :Acquired hallux valgus of right foot Take 1 tablet (5 mg total) by mouth every 4 (four) hours if needed for severe pain. Max Daily Amount: 30 mg 35 tablet 5 Active Active Problems Problem Noted Date Diagnosed Date Acquired hallux valgus of right foot 05/23/2024 Encounters Date Type Department Care Team Description 11/13/2024 1:00 PM EDT Office Visit Orthopedic Surgery - [place] [address] [address] Shubham Allison DPM Acquired hallux valgus of right foot (Primary Dx); Post-operative state from Last 3 Months Surgical History Surgery [...] 08/07/2024 8:25 AM EDT Plan of Treatment Health Maintenance Due Date Last Done Comments Diabetes: Annual GFR (Glomerular Filtration Rate) 1998 Pneumococcal Vaccine: Pediatrics (0 to 5 Years) and At-Risk Patients (6 to 49 Years) (1 of 1 - PPSV23, PCV20, or PCV21) 2004 01/21/2000, 10/16/1999 Diabetes: Annual Foot Exam 2008 Diabetes: Annual Retina Eye Exam 2008 Meningococcal B Vaccine (2 of 2 - Trumecharlinea SCDM 2-dose series) 11/30/2018 05/31/2018 Cholesterol Screening (Lipid Panel) 01/04/2024 HIV Screening 01/04/2024 Hepatitis C Screening 01/04/2024 Social Influencers of Health Screening 01/04/2024 Depression Screening 03/01/2024 COVID-19 Vaccine ( season) 2024 03/26/2021, 07/30/2020, 07/02/2020 Influenza Vaccine (#1) 2024 , 02/19/2016, 01/30/2015, Additional history exists Diabetes: Annual Urine Albumin-Creatinine Ratio (uACR) 11/13/2024 Diabetes: Blood Sugar Control Test (HGBA1C) 11/13/2024 DTaP,Tdap,and Td Vaccines (8 - Td or Tdap) 11/01/2030 11/01/2020, 11/27/2009, 10/26/2002, Additional history exists RSV Immunization Adult Patients (1 - 1-dose 75+ series) 2073 HIB Vaccines Completed 01/21/2000, 10/1999, 03/20/1999, Additional history exists Hepatitis B Vaccines Completed 01/21/2000, 08/14/1999, 05/08/1999 IPV Vaccines Completed 10/26/2002, 03/2000, 03/20/1999, Additional history exists MMR Vaccines Completed 10/26/2002, 10/16/1999 Varicella Vaccines Completed 09/29/2007, 10/16/1999 Meningococcal ACWY Vaccine Completed 01/30/2015, Hepatitis A Vaccines Completed 02/19/2016, 01/31/20 15 HPV Vaccines Completed 06/24/2016, 01/30, 01/30/2015 RSV Immunization Patients Under 20 months Aged Out No longer eligible based on patient's age to complete this topic Medical Devices Implanted Type Area Housekeeping Aid Device Identifier Shelf Expiration Date Model / Serial / Lot Nail Minibunion Offset Short 3.5mm - Sna - [id number] Implanted:Qty: 1 on 08/11/2024 by Shubham Allison DPM at [facility] Internal and External Fixation Right: First Toe [employer] 04/08/2028 [id number] / [id number] / [id number] Screw Non Lock Minibunion 2.7x16mm - Sna - [id number] Implanted:Qty: 1 on 08/11/2024 by Shubham Allison DPM at [facility] Internal and External Fixation Right: First Toe [employer] 04/07/2028 [id number] / NA / [id number] Screw Locking Minibunion 3x22mm - Sna - [id number] Implanted:Qty: 1 on 08/11/2024 by Shubham Allison DPM at [facility] Spinal Hardware Right: First Toe [employer] 05/01/2028 [id number] LK / NA / [id number] Headless Screw [id number] Implanted:Qty: 1 on 08/11/2024 by Shubham Allison DPM at [facility] Right: First Toe OTHER 04.333.22 6 / NA / NA Procedures Procedure Name Priority Date/Time Associated Diagnosis Comments XR FOOT 3+ VIEWS RIGHT Routine 11/13/2024 1:00 PM EDT Post-operative state from Last 3 Months Results * XR Foot 3+ Views Right (11/13/2024 1:00 PM EDT) Anatomical Region Laterality Modality Lower Extremities, Foot Right Computed Radiography Narrative 11/13/2024 1:06 PM EDT Right foot 3 views Stable post op changes hardware intact reduction deformity maintained complete consolidation noted Shubham Allison DPM IMG XR PROCEDURES Final R esult from Last 3 Months Insurance [facility] [employer] Care Teams Camp Nurse Relationship Specialty Start Date End Date Mook Abbott MD [address] [place] [address] Dr [facility] [place] [address] PCP - General Internal Medicine 12/24/23
--- OUTSIDE RECORDS SUMMARY | 2024-12-26 16:10 | XMS_ITS | Encounter Summary ---
Author Organization [facility] Address [address] [place] [address] Phone Care Team Providers Care Professional Services Specialist Name Role Phone Pop Bauman MD Primary Care Provider Mily cabrera Encounter Details Date Type Department Care Team (Late st Contact Info) Description 05/30/2014 Documentation [facility] Family Medicine [address] [place] [address] Family Medicine, Physician [address] [place] [address] Social History Tobacco Use Types Packs/Day Years [...] on filedocumented in this encounter Care Teams Professional Services Specialist Relationship Specialty Start Date End Date Pop Bauman MD PCP - General 10/09/16 04/15/22 documented as of this encounter
--- OUTSIDE RECORDS SUMMARY | 2024-12-26 16:10 | XMS_ITS | Encounter Summary ---
Author Organization [facility] Address [address] [place] [address] Phone Care Team Providers Care Gallery Or Museum Technician Name Role Phone Pop Bauman MD Primary Care Provider Mily cabrera Encounter Details Date Type Department Care Team (Late st Contact Info) Description 01/13/2011 Documentation [facility] Family Medicine [address] [place] [address] Family Medicine, Physician [address] [place] [address] Social History Tobacco Use Types Packs/Day Years [...] on filedocumented in this encounter Care Teams Gallery Or Museum Technician Relationship Specialty Start Date End Date Pop Bauman MD PCP - General 10/09/16 04/15/22 documented as of this encounter
--- OUTSIDE RECORDS SUMMARY | 2024-12-26 16:10 | XMS_ITS | Data Portability ---
Author Organization [place] [facility], Allergy Address [address] [address] Care Team Providers Care Machinery Cleaner Name Role Phone CHANTELMARION Primary Care Provider [phone] Assessment Encounter Date Assessment Date Assessment LastModified by Organization Details LastModified Time 01/20/2024 01/20/2024 Cerumen successfully removed bilaterally today, which patient tolerated well. Otologic exam otherwise remarkable for dry flaky skin. Recommend fluocinolone and Lotrisone; reviewed how and when to use. Continue Q-tip avoidance. Follow-up in 6 to 12 months for reevaluation. [email or web address] Not available 01/20/2024 15:45:24 12/04/2024 12/04/2024 24-year-old male presents for cerumen removal. Dense cerumen impaction removed bilaterally. Signs of fungal dermatitis medially on the left side. Recommended clotrimazole. Follow-up in 6 months. [email or web address] Not available 12/04/2024 14:20:31 Plan of Treatment Reminders Order Date Submit Date Provider Last Modified By Organization Details Last Modified Time Details Appointments Establish ed 15 2025 02:15P M SNOW ZELAYA PA-C Not available Not available Not available Lab None recorded. Referral None recorded. Procedures None recorded. Surgeries None recorded. Imaging None recorded. Medication Orders clotrimaz ole 1 % topical solution 2024 025 [facility]/Pharmacy #[id number], [address] [facility], [place], [address], 12/04/2024 14:21:55 fluocinol one acetonide oil 0.01 % ear drops 2023 024 LEVAR [facility]/Pharmacy #[id number], [address] [place], [address], 01/20/2024 14:13:02 clotrimaz ole-betam ethasone 1 %-0.05 % topical cream 2023 024 [email or web address] 32 [facility]/Pharmacy #[id number], [address] [place], [address], 12/04/2024 14:10:12 Patient TargetsNo targets recorded. Patient InstructionsNo instructions recorded. Reason for Referral None Reported. 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 97365047 Active 2013 Perforati on of tympanic membrane; Location: bilateral CMS Risk: minimal risk CMS Treatment : establish ed problem (to examiner) : stable or improved Note: Date Diagnosed : 4 11:51 AM (384.20) Not Available [facility] 4 02:36:44 Otorrhea 28633055 Active 2013 Otorrhea; Location: left CMS Risk: low risk CMS Treatment : establish ed problem (to examiner) : unstable or worsening Note: Date Diagnosed : 4 11:51 AM (388.60) Not Available [facility] 4 02:36:37 Chronic tympaniti s 23551250 Active 2013 Other disorders of tympanic membrane: Chronic myringiti s without mention of otitis media; Location: left CMS Risk: minimal risk CMS Treatment : establish ed problem (to examiner) : unstable or worsening Note: Date Diagnosed : 4 3:56 PM (384.1) Not Available [facility] 4 02:36:36 Impacted cerumen 06955320 Active 2014 Impacted cerumen; Note: Date Diagnosed : 04/27/2014 6:44 PM (380.4) Not Available [facility] 4 02:36:40 Candidal otitis externa 20841365 Active 2014 Candidal otitis externa; Note: Date Diagnosed : 12/04/2014 9:36 AM (B37.84) SNOW ZELAYA PA-C [address] [facility],[place] [address], [place], [address] , [facility] 5 14:20:59 Otorrhea of right ear 84493787129 33979 Active 2014 Otorrhea, right ear; Note: Date Diagnosed : 12/04/2014 9:35 AM (H92.11) [mapped from ICD9 code: 388.60] Not Available [facility] 4 02:36:35 Impacted cerumen of bilateral ears 35471331060 51153 Active 2014 Impacted cerumen, bilateral ; Note: Date Diagnosed : 5 4:56 PM (H61.23) SNOW ZELAYA PA-C 100 [facility] [address], [place], [address] , [facility] 5 14:20:31 Acute serous otitis media of left ear 39532464916 [address]8732 Active 2016 Acute serous otitis media, left ear; Note: Date Diagnosed : 09/15/2016 12:11 PM (H65.02) Not Available [facility] 4 02:36:39 Impacted cerumen in right ear 81937647935 81360 Active 2017 Impacted cerumen, right ear; Note: Date Diagnosed : 05/06/2017 3:34 PM (H61.21) Not Available [facility] 4 02:36:40 Conductiv e hearing loss of right ear 3707393884 Active 2018 Conductiv e hearing loss, unilatera l, right ear with restricte d hearing on the contralat eral side; Note: Date Diagnosed : 12/01/2018 4:43 PM (H90.A11) Not Available [facility] 4 02:36:34 Sensorine ural hearing loss in left ear 41435281221 109 Active 2018 Sensorine ural hearing loss, unilatera l, left ear, with restricte d hearing on the contralat eral side; Note: Date Diagnosed : 12/01/2018 4:43 PM (H90.A22) Not Available [facility] 4 02:36:39 Mixed conductiv e and sensorine ural hearing loss of right ear 75162833567 105 Active 2019 Mixed conductiv e and sensorine ural hearing loss, unilatera l, right ear, with unrestric aster hearing on the contralat eral side; Note: Date Diagnosed : 08/04/2019 10:29 AM (H90.71) Not Available [facility] 4 02:36:45 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 42713191792 06008 Active 2019 Other acquired stenosis of external ear canal, bilateral ; Note: Date Diagnosed : 10/26/2019 5:26 PM (H61.393) Not Available [facility] 4 02:36:35 Type 2 diabetes mellitus without complicat ion 455564012 Active 2022 Type 2 diabetes mellitus without complicat ions; Note: Date Diagnosed : 09/08/2022 10:40 AM (E11.9) Not Available [facility] 4 02:36:42 Otorrhea of bilateral ears 43054485210 30983 Active 2022 Otorrhea, bilateral ; Note: Date Diagnosed : 09/08/2022 10:44 AM (H92.13) Not Available [facility] 4 02:36:47 Partial loss of ear ossicles 43099334 Active 2022 Partial loss of ear ossicles, right ear; Note: Date Diagnosed : 11/30/2022 1:35 PM (H74.321) Not Available [facility] 4 02:36:47 Impacted cerumen in left ear 01194138163 48710 Active 2023 Impacted cerumen, left ear; Note: Date Diagnosed : 06/24/2023 12:40 PM (H61.22) Not Available [facility] 4 02:36:36 Itching of skin 913401353 Active 2023 Cesia palomo [place] - [facility] 4 14:12:27 Problem Notes None recorded. Procedures Surgical History Date Name Laterality Status Provider Name and Address Organization Details Recorded Time 5 Cerumen removal without microscope bilat completed SNOW ZELAYA PA-C [address] [place] [address],[place] [address], [place], [address], [place] - [facility] 12/04/2024 14:17:27 4 Cerumen removal without microscope bilat completed Cesia Rosales [place] - [facility] 01/20/2024 15:44:27 Imaging Results None recorded. Procedure Notes None recorded. Medical Equipment None Reported. Allergies No known drug allergies Medications Name Sig Start Date Stop Date Status Note LastModified by Organization Details LastModified Time ketoconaz ole 2 % shampoo APPLY TO SCALP, LET SIT 10 MINUTES LATHER IN RINSE AND FOLLOW WITH HYDRATIN G SHAMPOO 3 TIMES WEEKLY active Not Available Not Available No t Available FreeStyle Lancets 28 gauge 09/08 completed Medicati on ID: [id number] D uration Value: 30 Brand Name: FreeStyl e Lancets Send Method: E-Prescr ibed Sub s Allowed: subs OK Speci al Instruct ion: U UTD TO TEST BID Medi cationGe nericNam e: FreeStyl e Lancets Not Available Not Available Not Available Ciloxan 0.3 % eye drops 12/04 completed Medicati on ID: [id number] D uration Value: 7 Prescri bed By Name: MYA Cardenas nd Name: Ciloxan Send Method: E-Prescr ibed Sub s Allowed: subs OK Speci al Instruct ion: Instill 4 drops twice a day into affected ear for 7 days Med icationG enericNa me: Ciloxan Not Available Not Available Not Available sulfameth oxazole 800 mg-trimet hoprim 160 mg tablet 04/27 completed Medicati on ID: [id number] Dur ation Value: 7 Reason: () Brand Name: sulfamet hoxazole -trimeth oprim Se nd Method: E-Prescr ibed Sub s Allowed: subs OK Speci al Instruct ion: TK 1 T PO Q 12 H FOR 5 DAYS Med icationG enericNa me: sulfamet hoxazole -trimeth oprim Not Available Not Available Not Available ofloxacin 0.3 % ear drops Instill 3 drop into right ear twice a day 12/04 completed Medicati on ID: [id number] D uration Value: 7 Brand Name: ofloxaci n Send Method: E-Prescr ibed Sub s Allowed: subs OK Speci al Instruct ion: x 7 days Med icationG enericNa me: ofloxaci n Not Available Not Available Not Available Bactroban 2 % topical ointment a small amount to affected area 12/04 completed Medicati on ID: [id number] D uration Value: 30 Prescri bed By Name: MYA Corral nd Name: Bactroba n Send Method: E-Prescr ibed Sub s Allowed: subs OK Speci al Instruct ion: use as directed Medicat ionGener icName: Bactroba n Not Available Not Available Not Available cephalexi n 500 mg capsule 04/27 completed Medicati on ID: [id number] Dur ation Value: 10 Reason: () Brand Name: cephalex in Send Method: E-Prescr ibed Sub s Allowed: subs OK Speci al Instruct ion: TK ONE C PO TID FOR 10 DAYS Med icationG enericNa me: cephalex in Not Available Not Available Not Available clotrimaz ole-betam ethasone 1 %-0.05 % topical cream APPLY 1 A SMALL AMOUNT TWICE A DAY 12/04 completed Not Available Not Available Not Available clotrimaz ole 1 % topical solution APPLY 4 DROPS TO AFFECTED AREA 3 TIMES DAILY FOR 2 WEEKS active Not Available Not Available No t Available fluocinon jhon 0.05 % topical solution APPLY TO AFFECTED AREAS ON SCALP 1-2 TIMES DAILY NEEDED FOR ITCHING 12/04 completed Not Available Not Available Not Available betametha sone dipropion ate 0.05 % lotion PLEASE SEE ATTACHED FOR DETAILED DIRECTIO NS active Not Available Not Available No t Available oxycodone 5 mg tablet Take 1 tablet by mouth every four hours as needed for pain active Not Available Not Available No t Available Ciprodex 0.3 %-0.1 % ear drops,javier pension 4 drop 12/04 completed Medicati on ID: [id number] Du ration Value: 7 Prescri bed By Name: MYA Irizarry nd Name: Ciprodex Send Method: E-Prescr ibed Sub s Allowed: subs OK Medic ationGen ericName : Ciprodex Not Available Not Available Not Available ProAir HFA 90 mcg/actua tion aerosol inhaler 04/27 completed Medicati on ID: [id number] Dur ation Value: 16 Reason: () Brand Name: ProAir HFA Send Method: E-Prescr ibed Sub s Allowed: subs OK Speci al Instruct ion: INHALE 2 PUFFS PO Q 4 TO 6 H PRN Medi cationGe nericNam e: ProAir HFA Not Available Not Available Not Available DermOtic Oil 0.01 % ear drops USE 3 DROPS TWICE DAILY FOR 2 WEEKS THEN NEEDED active Not Available Not Available No t Available ProAir HFA 09/08 completed Medicati on ID: [id number] D uration Value: 16 Brand Name: ProAir HFA Send Method: E-Prescr ibed Sub s Allowed: subs OK Speci al Instruct ion: INHALE 2 PUFFS PO Q 4 TO 6 H PRN Medi cationGe nericNam e: ProAir HFA Not Available Not Available Not Available FreeStyle Lite Strips 09/08 completed Medicati on ID: [id number] D uration Value: 25 Brand Name: FreeStyl e Lite Strips S end Method: E-Prescr ibed Sub s Allowed: subs OK Speci al Instruct ion: USE UTD TO TEST BID Medi cationGe nericNam e: FreeStyl e Lite Strips Not Available Not Available Not Available Vitals Date Recorded Body height Body mass index (BMI) Body weight Provider Name and Address Organization Details Last Updated DateTime 01/20/2024 187.96 cm 32.5 kg/m2 868252.87 g Colleen Anaya [place] - [facility] 01/20/2024 13:35:16 Social History None recorded. Functional Status None recorded. Mental Status None recorded. Family History Nothing Reported. Medical History No medical history recorded. Gynecological HistoryNo gynecological history recorded. Obstetrics History GPAL:G 0 P 0 0 0 0 Past Encounters Encounter ID Performer Location Encounter Start Date Encounter Closed Date Diagnosis/Indication Diagnosis SNOMED-CT Code Diagnosis ICD10 Code Diagnosis IMO Codes Diagnosis Note [id number] CESIA ROSALES PA-C [facility] [address] [place] [address] 01/20/2024 13:16:45 01/20/2024 14:16:45 Impacted cerumen of bilateral ears 9791410435 560631 H61.23 Itching of skin 24937670 0 L29.9 [id number] SNOW ZELAYA PA-C [facility] [address] [place] [address] 12/04/2024 14:04:48 12/04/2024 14:18:06 Impacted cerumen of bilateral ears 1639762999 077154 H61.23 Candidal o titis externa 49301513 B37.84 116166 Health Concerns Section Related Observation LastModified by Organization Detai ls LastModified Time None Recorded Concern Status LastModified by Organization Details LastModified Time None Recorded Advance Directives Directive None Recorded Payers Insurance Date Sequence Insurance Name Policy Number Policy Lester Covered Member ID Lester Member ID Guarantor Name 12/01/2024 1 [facility] (MEDICAID HMO) [place] Raimundo Wanosta [id number] Raimundo Sainz Notes Date Note Type Note Provider Name and Address Organization Details Recorded Time 01/20/2024 text/html ROS as noted in the HPI 23-year-old male presents for cerumen removal. He reports the ears have been itchy. He no longer has the oil that he used to use for that. The itching is deeper in the canal. Sometimes the area near the meatus becomes a little bit flaky. He denies otalgia, otorrhea, and change in hearing. KOLE ZHONG MD [address] [place] [address], [phone], [facility] - [facility] 01/20/2024 17:15:36 12/04/2024 text/html ROS as noted in the HPI 24-year-old male presents for cerumen removal. He has been having some fullness and itching of the left ear. SHEELA RIZZO MD [address] [place] [address],[address], [address], [facility] - [facility] 12/04/2024 15:20:58 OBGyn Episode No OBEpisode recorded.
--- OUTSIDE RECORDS SUMMARY | 2024-12-26 16:10 | XMS_ITS | Encounter Summary ---
Author Organization [facility] Address [address] [place] [address] Phone Care Team Providers Care Side Guider Name Role Phone Pop Bauman MD Primary Care Provider Mily cabrera Encounter Details Date Type Department Care Team (Late st Contact Info) Description 07/14/2012 Documentation [facility] [place] Family Medicine [address] [place] [address] Family Medicine, Physician [address] [place] [address] Social History Tobacco Use Types Packs/Day Years [...] on filedocumented in this encounter Care Teams Side Guider Relationship Specialty Start Date End Date Pop Bauman MD PCP - General 10/09/16 04/15/22 documented as of this encounter
--- OUTSIDE RECORDS SUMMARY | 2024-12-26 16:10 | XMS_ITS | Encounter Summary ---
Author Organization [facility] Address [address] [place] [address] Phone Care Team Providers Care Candle Molder Machine Name Role Phone Pop Bauman MD Primary Care Provider iMly cabrera Encounter Details Date Type Department Care Team (Late st Contact Info) Description 11/10/2012 Documentation [facility] [place] [address] [place] [address] Family Medicine, Physician [address] [place] [address] Social History Tobacco Use Types [...] on filedocumented in this encounter Care Teams Candle Molder Machine Relationship Specialty Start Date End Date Pop Bauman MD PCP - General 10/09/16 04/15/22 documented as of this encounter
--- OUTSIDE RECORDS SUMMARY | 2024-12-26 16:10 | XMS_ITS | Encounter Summary ---
Author Organization [facility] Address [address] [place] [address] Phone Care Team Providers Care Book Sewing Machine Operator Name Role Phone Pop Bauman MD Primary Care Provider Mily cabrera Encounter Details Date Type Department Care Team (Late st Contact Info) Description 06/29/2016 Documentation [facility] [place] Family Medicine [address] [place] [address] Family Medicine, Physician [address] [place] [address] Social History Tobacco Use Types Packs/Day Years [...] on filedocumented in this encounter Care Teams Book Sewing Machine Operator Relationship Specialty Start Date End Date Pop Bauman MD PCP - General 10/09/16 04/15/22 documented as of this encounter
--- OUTSIDE RECORDS SUMMARY | 2024-12-26 16:10 | XMS_ITS | Encounter Summary ---
Author Organization [facility] Address [address] [place] [address] Phone Care Team Providers Care Meat Curer Name Role Phone Pop Bauman MD Primary Care Provider Mily cabrera Encounter Details Date Type Department Care Team (Late st Contact Info) Description 06/12/2016 Documentation [facility] [place] [address] [place] [address] Family Medicine, Physician [address] [place] [address] Social History Tobacco Use Types Packs/Day Years [...] on filedocumented in this encounter Care Teams Meat Curer Relationship Specialty Start Date End Date Pop Bauman MD PCP - General 10/09/16 04/15/22 documented as of this encounter
--- OUTSIDE RECORDS SUMMARY | 2024-12-26 16:10 | XMS_ITS | Encounter Summary ---
Author Organization [facility] Address [address] [place] [address] Phone Care Team Providers Care E Commerce Strategist Name Role Phone Pop Bauman MD Primary Care Provider Mily cabrera Encounter Details Date Type Department Care Team (Late st Contact Info) Description 06/12/2016 Documentation [facility] [place] [address] [place] [address] Family Medicine, Physician [address] [place] [address] Social History Tobacco Use Types Packs/Day Years [...] on filedocumented in this encounter Care Teams E Commerce Strategist Relationship Specialty Start Date End Date Pop Bauman MD PCP - General 10/09/16 04/15/22 documented as of this encounter
--- OUTSIDE RECORDS SUMMARY | 2024-12-26 16:10 | XMS_ITS | Encounter Summary ---
Author Organization [facility] Address [address] [place] [address] Phone Care Team Providers Care Chemical Dependency Nurse Name Role Phone Pop Bauman MD Primary Care Provider Mily cabrera Encounter Details Date Type Department Care Team (Late st Contact Info) Description 12/11/2011 [place] [facility] [place] [address] [place] [address] Family Medicine, Physician [address] [place] [address] Social History Tobacco Use Types Packs/Day Years [...] on filedocumented in this encounter Care Teams Chemical Dependency Nurse Relationship Specialty Start Date End Date Pop Bauman MD PCP - General 10/09/16 04/15/22 documented as of this encounter
--- OUTSIDE RECORDS SUMMARY | 2024-12-26 16:10 | XMS_ITS | Encounter Summary ---
Author Organization [facility] Address [address] [place] [address] Phone Care Team Providers Care Wet End Operator Name Role Phone Pop Bauman MD Primary Care Provider Mily cabrera Encounter Details Date Type Department Care Team (Late st Contact Info) Description 07/01/2011 Documentation [facility] [place] [address] [place] [address] Family Medicine, Physician [address] [place] [address] Social History Tobacco Use Types Packs/Day Years [...] on filedocumented in this encounter Care Teams Wet End Operator Relationship Specialty Start Date End Date Pop Bauman MD PCP - General 10/09/16 04/15/22 documented as of this encounter
--- OUTSIDE RECORDS SUMMARY | 2024-12-26 16:10 | XMS_ITS | Encounter Summary ---
Author Organization [facility] Address [address] [place] [address] Phone Care Team Providers Care Rope Making Machine Operator Name Role Phone Pop Bauman MD Primary Care Provider Mily cabrera Encounter Details Date Type Department Care Team (Late st Contact Info) Description 02/19/2011 Documentation [facility] [place] [address] [place] [address] Family Medicine, Physician [address] [place] [address] Social History Tobacco Use Types Packs/Day Years [...] on filedocumented in this encounter Care Teams Rope Making Machine Operator Relationship Specialty Start Date End Date Pop Bauman MD PCP - General 10/09/16 04/15/22 documented as of this encounter
--- OUTSIDE RECORDS SUMMARY | 2024-12-26 16:10 | XMS_ITS | Encounter Summary ---
Author Organization [facility] Address [address] [place] [address] Phone Care Team Providers Care Personal Banking Representative Name Role Phone Pop Bauman MD Primary Care Provider Mily cabrera Encounter Details Date Type Department Care Team (Late st Contact Info) Description 01/09/2011 Documentation [facility] [place] Family Medicine [address] [place] [address] Family Medicine, Physician [address] [place] [address] Social History Tobacco Use Types Packs/Day Years [...] on filedocumented in this encounter Care Teams Personal Banking Representative Relationship Specialty Start Date End Date Pop Bauman MD PCP - General 10/09/16 04/15/22 documented as of this encounter
--- OUTSIDE RECORDS SUMMARY | 2024-12-26 16:10 | XMS_ITS | Encounter Summary ---
Author Organization [facility] Address [address] [place] [address] Phone Care Team Providers Care Fire Control Technician Name Role Phone Pop Bauman MD Primary Care Provider Mily cabrera Encounter Details Date Type Department Care Team (Late st Contact Info) Description 03/25/2011 Documentation [facility] [place] [address] [place] [address] Family Medicine, Physician [address] [place] [address] Social History Tobacco Use Types Packs/Day Years [...] on filedocumented in this encounter Care Teams Fire Control Technician Relationship Specialty Start Date End Date Pop Bauman MD PCP - General 10/09/16 04/15/22 documented as of this encounter
--- OUTSIDE RECORDS SUMMARY | 2024-12-26 16:10 | XMS_ITS | Encounter Summary ---
Author Organization [facility] Address [address] [place] [address] Phone Care Team Providers Care Pulp Mill Supervisor Name Role Phone Pop Bauman MD Primary Care Provider Mily cabrera Encounter Details Date Type Department Care Team ([facility] st Contact Info) Description 10/15/2016 Conversion Encounter [facility] - [address] [address] Social History Tobacco Use Types Packs/Day Years [...] on filedocumented in this encounter Care Teams Pulp Mill Supervisor Relationship Specialty Start Date End Date Pop Bauman MD PCP - General 10/09/16 04/15/22 documented as of this encounter
== END 2024-12-26 13:31 | disposition home or self-care (01) ==
LOC: HO.HMCH 12:50
PROVIDERS: PCP Internal Medicine; Visit Provider Internal Medicine
DX: Z00.00 Encounter for general adult medical examination without abnormal findings (principal); E34.8 Other specified endocrine disorders; E66.9 Obesity, unspecified; Z68.35 Body mass index [BMI] 35.0-35.9, adult; Q87.3 Congenital malformation syndromes involving early overgrowth; F41.1 Generalized anxiety disorder; Z98.890 Other specified postprocedural states

== ENCOUNTER → 2024-12-26 12:49 | Outpatient (BNVA) | payer OTHER, SELFPAY | PROVIDERS: PCP Internal Medicine; Visit Provider Internal Medicine | DX: Z00.00 Encounter for general adult medical examination without abnormal findings (principal); E34.8 Other specified endocrine disorders; E66.9 Obesity, unspecified; Q87.3 Congenital malformation syndromes involving early overgrowth; F41.1 Generalized anxiety disorder; G47.33 Obstructive sleep apnea (adult) (pediatric); J30.9 Allergic rhinitis, unspecified; R42 Dizziness and giddiness; Z68.35 Body mass index [BMI] 35.0-35.9, adult; Z98.890 Other specified postprocedural states | CPT/HCPCS: 96127; 99395 ==

== ENCOUNTER 2025-01-08 12:23 | Outpatient (AMB) | payer OTHER, SELFPAY ==
[2025-01-08 12:25] VITALS: BP 128/90; PULSE 86; O2SAT 95; BMI 35.5
--- NOTE | 2025-01-08 12:25 | MHC.OFFVIS ---
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 No abnormal intracranial enhancement. 2. Mild nonspecific white matter changes. 3. The sella turcica is moderately expanded with partial flattening of the pituitary gland. Otherwise, normal morphology and signal intensity of the pituitary gland on the noncontrast evaluation. 4. There is a 1.5 cm cyst without suspicious features associated with the pineal gland. He has intellectual disabiliy - graduated from high school and was in special ed. He took theater classes after that.He is looking for parts technician job .He has never worked but has volunteered in some places. He came alone for todays visit . He lives with his mother- came to this visit with his brother. He denies headaches. he has loud snoring and has some daytime fatigue. [facility] Medical History (Updated 01/08/25 @ 12:42 by Mariangel Luna MD) GEORGE on CPAP Hypersomnia Snoring Sotos' syndrome Anxiety and depression Migraine Obesity (BMI 30-39.9) Surgical History History of MRSA infection History of ear surgery History of toe surgery Family History Mother Skin cancer Myocardial infarction Maternal Grandmother Skin cancer Maternal Grandfather Myocardial infarction Maternal Aunt Melanoma Brain cancer Primary cancer of bone marrow Social History Housing: House Alcohol intake: never Patient Tobacco Use Status: Never used Tobacco e-Cigarette/Vaping Use: Never Used Current occupational status: unemployed Cognitive needs: No Hearing needs: No Vision needs: No Physical Exam Vital Signs: Last Vital Signs Pulse 86 01/08/25 12:25 BP 128/90 H 01/08/25 12:25 Pulse Ox 95 01/08/25 12:25 Oxygen Delivery Method Room Air 01/08/25 12:25 BMI result Body Mass Index 35.5 Const General: cooperative, healthy appearing, comfortable, no acute distress, well developed and alert Nutritional Appearance: obese Orientation/consciousness: oriented to person, oriented to place and oriented to time Eyes Pupils: Equal, round and reactive pupils present Neuro Other: mildly slanted eyes Mallampatti grade 4 Mild difficulty comprehending questions General: oriented to person, oriented to place, oriented to time, gait normal, tone normal, moves all extremities and no focal motor deficits Cranial nerves: Yes Facial sensation intact/muscles of mastication intact, Yes Equal, round and reactive pupils present, Yes Bilaterally intact EOM present, Yes Nystagmus not present and Yes Normal facial strength present Gait exam (Neuro): Normal gait present Motor exam (neuro): 5/5 motor strength present throughout and Normal motor muscle tone present throughout Coordination: [id number] test normal Psych Appearance: grossly normal Mental Status: mental status grossly normal Speech and movement: Normal speech and movement present Affect: normal affect Attitude: cooperative Assessment & Plan Assessment & Plan (1) Pineal gland cyst: Comment: asymptomatic Code(s): E34.8 - Other specified endocrine disorders Category: Medical (2) Sotos' syndrome: Comment: has mild to moderate intellectual disability Code(s): Q87.3 - Congenital malformation syndromes involving early overgrowth Category: Medical (3) GEORGE on CPAP: Code(s): G47.33 - Obstructive sleep apnea (adult) (pediatric); Z99.89 - Dependence on other enabling machines and devices Category: Medical Plan will monitor Pineal gland cyst with periodic MRI continue cpap - compliance stressed F/u psychiatry Coding Level of Care Code Est Pt Level 4 (04039) Diagnoses Pineal gland cyst E34.8 Sotos' syndrome Q87.3 GEORGE on CPAP G47.33; Z99.89
--- OUTSIDE RECORDS SUMMARY | 2025-01-08 14:39 | XMS_ITS | Encounter Summary ---
Author Organization [facility] Address [address] [place] [address] Phone Care Team Providers Care Options Advisor Name Role Phone Pop Bauman MD Primary Care Provider Mily cabrera Encounter Details Date Type Department Care Team (Late st Contact Info) Description 07/14/2012 Documentation [facility] [place] [address] [place] [address] Family Medicine, Physician [address] [place] [address] Social History Tobacco Use Types Packs/Day Years [...] on filedocumented in this encounter Care Teams Options Advisor Relationship Specialty Start Date End Date Pop Bauman MD PCP - General 10/09/16 04/15/22 documented as of this encounter
--- OUTSIDE RECORDS SUMMARY | 2025-01-08 14:39 | XMS_ITS | Encounter Summary ---
Author Organization [facility] Address [address] [place] [address] Phone Care Team Providers Care Java Tech Lead Name Role Phone Pop Bauman MD Primary Care Provider Mily cabrera Encounter Details Date Type Department Care Team (Late st Contact Info) Description 07/01/2011 Documentation [facility] [place] [address] [place] [address] Family Medicine, Physician [address] [place] [address] Social History Tobacco Use Types Packs/Day Years [...] on filedocumented in this encounter Care Teams Java Tech Lead Relationship Specialty Start Date End Date Pop Bauman MD PCP - General 10/09/16 04/15/22 documented as of this encounter
--- OUTSIDE RECORDS SUMMARY | 2025-01-08 14:39 | XMS_ITS | Encounter Summary ---
Author Organization [facility] Address [address] [place] [address] Phone Care Team Providers Care Education Liaison Name Role Phone Pop Bauman MD Primary Care Provider Mily cabrera Encounter Details Date Type Department Care Team (Late st Contact Info) Description 11/10/2012 Documentation [facility] [place] [address] [place] [address] Family Medicine, Physician [address] [place] [address] Social History Tobacco Use Types Packs/Day Years [...] filedocumented in this encounter Care Teams Education Liaison Relationship Specialty Start Date End Date Pop Bauman MD PCP - General 10/09/16 04/15/22 documented as of this encounter
--- OUTSIDE RECORDS SUMMARY | 2025-01-08 14:39 | XMS_ITS | Encounter Summary ---
Author Organization [facility] Address [address] [place] [address] Phone Care Team Providers Care Stemhole Borer And Topper Name Role Phone Pop Bauman MD Primary Care Provider Mily cabrera Encounter Details Date Type Department Care Team (Late st Contact Info) Description 02/19/2011 Documentation [facility] [place] [address] [place] [address] Family Medicine, Physician [address] [place] [address] Social History Tobacco Use Types Packs/Day Years [...] on filedocumented in this encounter Care Teams Stemhole Borer And Topper Relationship Specialty Start Date End Date Pop Bauman MD PCP - General 10/09/16 04/15/22 documented as of this encounter
--- OUTSIDE RECORDS SUMMARY | 2025-01-08 14:39 | XMS_ITS | Encounter Summary ---
Author Organization [facility] Address [address] [place] [address] Phone Care Team Providers Care Gas Meter Reader Name Role Phone Pop Bauman MD Primary Care Provider Mily cabrera Encounter Details Date Type Department Care Team (Late st Contact Info) Description 06/08/2016 Documentation [facility] [place] [address] [place] [address] Family Medicine, Physician [address] [place] [address] Social History Tobacco Use Types Packs/Day Years [...] on filedocumented in this encounter Care Teams Gas Meter Reader Relationship Specialty Start Date End Date Pop Bauman MD PCP - General 10/09/16 04/15/22 documented as of this encounter
--- OUTSIDE RECORDS SUMMARY | 2025-01-08 14:39 | XMS_ITS | Encounter Summary ---
Author Organization [facility] Address [address] [place] [address] Phone Care Team Providers Care Milling Machine Operator Name Role Phone Pop Bauman MD Primary Care Provider Mily cabrera Encounter Details Date Type Department Care Team (Late st Contact Info) Description 06/10/2012 Documentation [facility] [place] [facility] [place] [address] [place] [address] Family Medicine, Physician [address] [place] [address] Social History Tobacco Use Types Packs/Day Years [...] on filedocumented in this encounter Care Teams Milling Machine Operator Relationship Specialty Start Date End Date Pop Bauman MD PCP - General 10/09/16 04/15/22 documented as of this encounter
--- OUTSIDE RECORDS SUMMARY | 2025-01-08 14:39 | XMS_ITS | Data Portability ---
Author Organization [place] - [facility], Allergy Address [address] [address] Care Team Providers Care Food Service Worker Name Role Phone CHANTELMARION Primary Care Provider Assessment Encounter Date Assessment Date Assessment LastModified [...] ole 1 % topical solution 2024 025 [facility]/Pharmacy #[id number], [address] [facility], [place], [address], 12/04/2024 14:21:55 fluocinol one acetonide oil 0.01 % ear drops 2023 024 [facility]/Pharmacy #[id number], [address] [place], [address], 01/20/2024 14:13:02 clotrimaz ole-betam ethasone 1 %-0.05 % topical cream 2023 024 arodrigues 32 [facility]/Pharmacy #[id number], [address] [place], [address], 12/04/2024 14:10:12 Patient TargetsNo targets recorded. Patient InstructionsNo instructions recorded. Reason for Referral None Reported. 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 78495876 Active 2013 Perforati on of tympanic membrane; Location: bilateral CMS Risk: minimal risk CMS Treatment : establish ed problem (to examiner) : stable or improved Note: Date Diagnosed : 4 11:51 AM (384.20) Not Available [facility] 4 02:36:44 Otorrhea 06466382 Active 2013 Otorrhea; Location: left CMS Risk: low risk CMS Treatment : establish ed problem (to examiner) : unstable or worsening Note: Date Diagnosed : 4 11:51 AM (388.60) Not Available [facility] 4 02:36:37 Chronic tympaniti s 60272167 Active 2013 Other disorders of tympanic membrane: Chronic myringiti s without mention of otitis media; Location: left CMS Risk: minimal risk CMS Treatment : establish ed problem (to examiner) : unstable or worsening Note: Date Diagnosed : 4 3:56 PM (384.1) Not Available [facility] 4 02:36:36 Impacted cerumen 74569182 Active 2014 Impacted cerumen; Note: Date Diagnosed : 04/27/2014 6:44 PM (380.4) Not Available [facility] 4 02:36:40 Candidal otitis externa 60182811 Active 2014 Candidal otitis externa; Note: Date Diagnosed : 12/04/2014 9:36 AM (B37.84) SNOW ZELAYA PA-C 100 [facility],[place] [address], [place], [address] , [facility] 5 14:20:59 Otorrhea of right ear 46740285073 99622 Active 2014 Otorrhea, right ear; Note: Date Diagnosed : 12/04/2014 9:35 AM (H92.11) [mapped from ICD9 code: 388.60] Not Available [facility] 4 02:36:35 Impacted cerumen of bilateral ears 84810856529 93147 Active 2014 Impacted cerumen, bilateral ; Note: Date Diagnosed : 5 4:56 PM (H61.23) SNOW ZELAYA PA-C 100 [facility] 100, [place], [address] , [facility] 5 14:20:31 Acute serous otitis media of left ear 26031223762 66914 Active 2016 Acute serous otitis media, left ear; Note: Date Diagnosed : 09/15/2016 12:11 PM (H65.02) Not Available [facility] 4 02:36:39 Impacted cerumen in right ear 89575338502 44828 Active 2017 Impacted cerumen, right ear; Note: Date Diagnosed : 05/06/2017 3:34 PM (H61.21) Not Available [facility] 4 02:36:40 Conductiv e hearing loss of right ear 7745079056 Active 2018 Conductiv e hearing loss, unilatera l, right ear with restricte d hearing on the contralat eral side; Note: Date Diagnosed : 12/01/2018 4:43 PM (H90.A11) Not Available [facility] 4 02:36:34 Sensorine ural hearing loss in left ear 80560956943 109 Active 2018 Sensorine ural hearing loss, unilatera l, left ear, with restricte d hearing on the contralat eral side; Note: Date Diagnosed : 12/01/2018 4:43 PM (H90.A22) Not Available [facility] 4 02:36:39 Mixed conductiv e and sensorine ural hearing loss of right ear 47394954205 105 Active 2019 Mixed conductiv e and sensorine ural hearing loss, unilatera l, right ear, with unrestric aster hearing on the contralat eral side; Note: Date Diagnosed : 08/04/2019 10:29 AM (H90.71) Not Available [facility] 4 02:36:45 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 35512919339 09005 Active 2019 Other acquired stenosis of external ear canal, bilateral ; Note: Date Diagnosed : 10/26/2019 5:26 PM (H61.393) Not Available [facility] 4 02:36:35 Type 2 diabetes mellitus without complicat ion 032689736 Active 2022 Type 2 diabetes mellitus without complicat ions; Note: Date Diagnosed : 09/08/2022 10:40 AM (E11.9) Not Available [facility] 4 02:36:42 Otorrhea of bilateral ears 48320459700 21352 Active 2022 Otorrhea, bilateral ; Note: Date Diagnosed : 09/08/2022 10:44 AM (H92.13) Not Available [facility] 4 02:36:47 Partial loss of ear ossicles 08384070 Active 2022 Partial loss of ear ossicles, right ear; Note: Date Diagnosed : 11/30/2022 1:35 PM (H74.321) Not Available [facility] 4 02:36:47 Impacted cerumen in left ear 08786854886 09642 Active 2023 Impacted cerumen, left ear; Note: Date Diagnosed : 06/24/2023 12:40 PM (H61.22) Not Available [facility] 4 02:36:36 Itching of skin 921875158 Active 2023 Cesia palomo [place] - [facility] 4 14:12:27 Problem Notes None recorded. Procedures Surgical History Date Name Laterality Status Provider Name and Address Organization Details Recorded Time 5 Cerumen removal without microscope bilat completed SNOW ZELAYA PA-C [address] [place] [address],[place] [address], [place], [address], [place] - [facility] 12/04/2024 14:17:27 4 Cerumen removal without microscope bilat completed Cesia Rosales [place] - [facility] 01/20/2024 15:44:27 Imaging Results None recorded. Procedure [...] 28 gauge 09/08 completed Medicati on ID: [id number] D uration Value: 30 Brand Name: FreeStyl e Lancets Send Method: E-Prescr ibed Sub s Allowed: subs OK Speci al Instruct ion: U UTD TO TEST BID Medi cationGe nericNam e: FreeStyl e Lancets Not Available Not Available Not Available Ciloxan 0.3 % eye drops 12/04 completed Medicati on ID: [id number] D uration Value: 7 Prescri bed By [...] a day 12/04 completed Medicati on ID: [id number] D uration Value: 7 Brand Name: ofloxaci n Send Method: E-Prescr ibed Sub s Allowed: subs OK Speci al Instruct ion: x 7 days Med icationG enericNa me: ofloxaci n Not Available Not Available Not Available Bactroban 2 % topical ointment a small amount to affected area 12/04 completed Medicati on ID: [id number] D uration Value: 30 Prescri bed By [...] 4 drop 12/04 completed Medicati on ID: [id number] Du ration Value: 7 Prescri bed By [...] ProAir HFA 09/08 completed Medicati on ID: [id number] D uration Value: 16 Brand Name: ProAir HFA Send Method: E-Prescr ibed Sub s Allowed: subs OK Speci al Instruct ion: INHALE 2 PUFFS PO Q 4 TO 6 H PRN Medi cationGe nericNam e: ProAir HFA Not Available Not Available Not Available FreeStyle Lite Strips 09/08 completed Medicati on ID: [id number] D uration Value: 25 Brand Name: FreeStyl [...] Updated DateTime 01/20/2024 187.96 cm 32.5 kg/m2 896876.87 g Colleen Anaya [place] - [facility] 01/20/2024 13:35:16 Social History None recorded. Functional Status None recorded. Mental Status None recorded. Family History Nothing Reported. Medical History No medical history recorded. Gynecological HistoryNo gynecological history recorded. Obstetrics History GPAL:G 0 P 0 0 0 0 Past Encounters Encounter ID Performer Location Encounter Start Date Encounter Closed Date Diagnosis/Indication Diagnosis SNOMED-CT Code Diagnosis ICD10 Code Diagnosis IMO Codes Diagnosis Note [id number] CESIA ROSALES PA-C [facility] [address] [place] [address] 01/20/2024 13:16:45 01/20/2024 14:16:45 Impacted cerumen of bilateral ears 8019258877 065310 H61.23 Itching of skin 67142084 0 L29.9 [id number] SNOW ZELAYA PA-C [facility] [address] [place] [address] 12/04/2024 14:04:48 12/04/2024 14:18:06 Impacted cerumen of bilateral ears 1990776678 074807 H61.23 Candidal o titis externa 88645146 B37.84 [id number] Health Concerns Section Related Observation LastModified by Organization Detai ls LastModified Time None Recorded Concern Status LastModified by Organization Details LastModified Time None Recorded Advance Directives Directive None Recorded Payers Insurance Date Sequence Insurance Name Policy Number Policy Lester Covered Member ID Lester Member ID Guarantor Name 12/01/2024 1 [facility] - HEALTH NET PLAN (MEDICAID HMO) [employer] Raimundo Wanosta [id number] Raimundo Sainz Notes Date Note Type Note [...] and change in hearing. KOLE ZHONG MD [address] [place] [address], [phone], [facility] - [facility] 01/20/2024 17:15:36 12/04/2024 text/html ROS as noted in the HPI 24-year-old male presents for cerumen removal. He has been having some fullness and itching of the left ear. SHEELA RIZZO MD [address] [place] [address],[address], [address], [facility] - [facility] 12/04/2024 15:20:58 OBGyn Episode No OBEpisode recorded.
--- OUTSIDE RECORDS SUMMARY | 2025-01-08 14:39 | XMS_ITS | Continuity of Care Document ---
Author Organization [place] - [facility], [facility] Address [address] [place] [address] Care Team Providers Care Chair Inspector And Leveler Name Role Phone MARION GOLDEN Primary Care Provider Assessment Encounter Date Assessment Date Assessment LastModified by Organization Details LastModified Time 12/04/2024 12/04/2024 24-year-old male presents for cerumen [...] ole 1 % topical solution 2024 025 [facility]/Pharmacy #[id number], [address] [facility], [place], [address], 12/04/2024 14:21:55 Patient TargetsNo targets recorded. Patient InstructionsNo instructions recorded. Reason for Referral None Reported. 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 4 02:36:44 Otorrhea 35363451 Active 2013 Otorrhea; Location: left [facility] Risk: low risk CMS Treatment : establish ed problem (to examiner) : unstable or worsening Note: Date Diagnosed : 4 11:51 AM (388.60) Not Available [facility] 4 02:36:37 Chronic tympaniti s 60364557 Active 2013 Other disorders of tympanic membrane: Chronic myringiti s without mention of otitis media; Location: left [facility] Risk: minimal risk CMS Treatment : establish ed problem (to examiner) : unstable or worsening Note: Date Diagnosed : 4 3:56 PM (384.1) Not Available [facility] 4 02:36:36 Impacted cerumen 55190452 Active 2014 Impacted cerumen; Note: Date Diagnosed : 04/27/2014 6:44 PM (380.4) Not Available [facility] 4 02:36:40 Candidal otitis externa 42283609 Active 2014 Candidal otitis externa; Note: Date Diagnosed : 12/04/2014 9:36 AM (B37.84) SNOW ZELAYA PA-C [address] [place] [address],[place] [address], [place], [address] , [facility] 5 14:20:59 Otorrhea of right ear 18639680622 58893 Active 2014 Otorrhea, right ear; Note: Date Diagnosed : 12/04/2014 9:35 AM (H92.11) [mapped from ICD9 code: 388.60] Not Available [facility] 4 02:36:35 Impacted cerumen of bilateral ears 18169386833 99754 Active 2014 Impacted cerumen, bilateral ; Note: Date Diagnosed : 5 4:56 PM (H61.23) SNOW ZELAYA PA-C [address] [place] [address],[place] [address], [place], [address] , [facility] 5 14:20:31 Acute serous otitis media of left ear 67102914233 32086 Active 2016 Acute serous otitis media, left ear; Note: Date Diagnosed : 09/15/2016 12:11 PM (H65.02) Not Available [facility] 4 02:36:39 Impacted cerumen in right ear 56537715142 42794 Active 2017 Impacted cerumen, right ear; Note: Date Diagnosed : 05/06/2017 3:34 PM (H61.21) Not Available [facility] 4 02:36:40 Conductiv e hearing loss of right ear 3213499694 Active 2018 Conductiv e hearing loss, unilatera l, right ear with restricte d hearing on the contralat eral side; Note: Date Diagnosed : 12/01/2018 4:43 PM (H90.A11) Not Available [facility] 4 02:36:34 Sensorine ural hearing loss in left ear 70386662278 109 Active 2018 Sensorine ural hearing loss, unilatera l, left ear, with restricte d hearing on the contralat eral side; Note: Date Diagnosed : 12/01/2018 4:43 PM (H90.A22) Not Available [facility] 4 02:36:39 Mixed conductiv e and sensorine ural hearing loss of right ear 35778548268 105 Active 2019 Mixed conductiv e and sensorine ural hearing loss, unilatera l, right ear, with unrestric aster hearing on the contralat eral side; Note: Date Diagnosed : 08/04/2019 10:29 AM (H90.71) Not Available [facility] 4 02:36:45 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 4 02:36:42 Otorrhea of bilateral ears 40607500347 27468 Active 2022 Otorrhea, bilateral ; Note: Date Diagnosed : 09/08/2022 10:44 AM (H92.13) Not Available [facility] 4 02:36:47 Partial loss of ear ossicles 86371069 Active 2022 Partial loss of ear ossicles, right ear; Note: Date Diagnosed : 11/30/2022 1:35 PM (H74.321) Not Available [facility] 4 02:36:47 Impacted cerumen in left ear 38371590382 21602 Active 2023 Impacted cerumen, left ear; Note: Date Diagnosed : 06/24/2023 12:40 PM (H61.22) Not Available [facility] 4 02:36:36 Itching of skin 158579750 Active 2023 Cesia palomo [place] - [facility] 4 14:12:27 Problem Notes None recorded. Procedures Surgical History Date Name Laterality Status Provider Name and Address Organization Details Recorded Time 5 Cerumen removal without microscope bilat completed SNOW ZELAYA PA-C [address] [place] [address], [address], [facility] - [facility] 12/04/2024 14:17:27 4 Cerumen removal without microscope bilat completed Cesia Cabrera [facility] 01/20/2024 15:44:27 Imaging Results None recorded. [...] 28 gauge 09/08 completed Medicati on ID: [id number] D uration Value: 30 Brand Name: FreeStyl e Lancets Send Method: E-Prescr ibed Sub s Allowed: subs OK Speci al Instruct ion: U UTD TO TEST BID Medi cationGe nericNam e: FreeStyl e Lancets Not Available Not Available Not Available Ciloxan 0.3 % eye drops 12/04 completed Medicati on ID: [id number] D uration Value: 7 Prescri bed By [...] a day 12/04 completed Medicati on ID: [id number] D uration Value: 7 Brand Name: ofloxaci n Send Method: E-Prescr ibed Sub s Allowed: subs OK Speci al Instruct ion: x 7 days Med icationG enericNa me: ofloxaci n Not Available Not Available Not Available Bactroban 2 % topical ointment a small amount to affected area 12/04 completed Medicati on ID: [id number] D uration Value: 30 Prescri bed By [...] PO TID FOR 10 DAYS Med icationG cherelleericNa me: cephalex in Not Available Not Available [...] 4 drop 12/04 completed Medicati on ID: [id number] Du ration Value: 7 Prescri bed By [...] ProAir HFA 09/08 completed Medicati on ID: [id number] D uration Value: 16 Brand Name: ProAir HFA Send Method: E-Prescr ibed Sub s Allowed: subs OK Speci al Instruct ion: INHALE 2 PUFFS PO Q 4 TO 6 H PRN Medi cationGe nericNam e: ProAir HFA Not Available Not Available Not Available FreeStyle Lite Strips 09/08 completed Medicati on ID: [id number] D uration Value: 25 Brand Name: FreeStyl e Lite Strips S end Method: E-Prescr ibed Sub s Allowed: subs OK Speci al Instruct ion: USE UTD TO TEST BID Medi cationGe nericNam e: FreeStyl e Lite Strips Not Available Not Available Not Available Vitals None Recorded Social History None recorded. Functional Status None recorded. Mental Status None recorded. Family History Nothing Reported. Medical History No medical history recorded. Gynecological HistoryNo gynecological history recorded. Obstetrics History GPAL:G 0 P 0 0 0 0 Past Encounters Encounter ID Performer Location Encounter Start Date Encounter Closed Date Diagnosis/Indication Diagnosis SNOMED-CT Code Diagnosis ICD10 Code Diagnosis IMO Codes Diagnosis Note [id number] SNOW ZELAYA PA-C [facility] [address] [address] 12/04/2024 14:04:48 12/04/2024 14:18:06 Impacted cerumen of bilateral ears 2699744107 892697 H61.23 Candidal o titis externa 03847408 B37.84 708984 Health Concerns Section Related Observation LastModified by Organization Detai ls LastModified Time None Recorded Concern Status LastModified by Organization Details LastModified Time None Recorded Payers Encounter Date Sequence Insurance Name Policy Number Policy Lester Covered Member ID Lester Member ID Guarantor Name 12/04/2024 1 [facility] (MEDICAID HMO) [employer] Raimundo E Sainz [id number] Raimundo E Sainz Notes Date Note Type Note Provider Name and Address Organization Details Recorded Time 12/04/2024 text/html ROS as noted in the HPI 24-year-old male presents for cerumen removal. He has been having some fullness and itching of the left ear. SHEELA RIZZO MD [address] [place] [address], [address], [facility] - [facility] 12/04/2024 15:20:58 OBGyn Episode No OBEpisode recorded.
--- OUTSIDE RECORDS SUMMARY | 2025-01-08 14:39 | XMS_ITS | Encounter Summary ---
Author Organization [facility] Address [address] [place] [address] Phone Care Team Providers Care Financial Advisor Name Role Phone Pop Bauman MD Primary Care Provider Mily cabrera Encounter Details Date Type Department Care Team (Late st Contact Info) Description 02/16/2011 Documentation [facility] Family Medicine [address] [place] [address] Family Medicine, Physician [address] [place] [address] Social History Tobacco Use Types Packs/Day Years [...] on filedocumented in this encounter Care Teams Financial Advisor Relationship Specialty Start Date End Date Pop Bauman MD PCP - General 10/09/16 04/15/22 documented as of this encounter
--- OUTSIDE RECORDS SUMMARY | 2025-01-08 14:39 | XMS_ITS | Encounter Summary ---
Author Organization [facility] Address [address] [place] [address] Phone Care Team Providers Care Business Operations Analyst Name Role Phone Pop Bauman MD Primary Care Provider Mily cabrera Encounter Details Date Type Department Care Team (Late st Contact Info) Description 02/12/2016 Documentation [facility] [address] [place] [address] Family Medicine, Physician [address] [place] [address] Social History Tobacco Use Types Packs/Day Years [...] filedocumented in this encounter Care Teams Business Operations Analyst Relationship Specialty Start Date End Date Pop Bauman MD PCP - General 10/09/16 04/15/22 documented as of this encounter
--- OUTSIDE RECORDS SUMMARY | 2025-01-08 14:39 | XMS_ITS | Encounter Summary ---
Author Organization [facility] Address [address] [place] [address] Phone Care Team Providers Care Activity Aide Name Role Phone Pop Bauman MD Primary Care Provider Mily cabrera Encounter Details Date Type Department Care Team (Late st Contact Info) Description 03/25/2011 Documentation [facility] Family Medicine [address] [place] [address] Family Medicine, Physician [address] [place] [address] Social History Tobacco Use Types Packs/Day Years [...] on filedocumented in this encounter Care Teams Activity Aide Relationship Specialty Start Date End Date Pop Bauman MD PCP - General 10/09/16 04/15/22 documented as of this encounter
--- OUTSIDE RECORDS SUMMARY | 2025-01-08 14:39 | XMS_ITS | Encounter Summary ---
Author Organization [facility] Address [address] [place] [address] Phone Care Team Providers Care Laborer Beam House Name Role Phone Pop Bauman MD Primary Care Provider Mily cabrera Encounter Details Date Type Department Care Team (Late st Contact Info) Description 12/11/2011 Documentation [facility] Family Medicine [address] [place] [address] Family Medicine, Physician [address] [place] [address] Social History Tobacco Use Types Packs/Day Years [...] on filedocumented in this encounter Care Teams Laborer Beam House Relationship Specialty Start Date End Date Pop Bauman MD PCP - General 10/09/16 04/15/22 documented as of this encounter
--- OUTSIDE RECORDS SUMMARY | 2025-01-08 14:39 | XMS_ITS | Clinical Summary ---
Author Organization [facility] Address [address] [place] [address] Phone Care Team Providers Care Fire Extinguisher Repairer Name Role Phone Unavailable Primary Care Provider Unavailabl e Allergies Active Allergy Reactions Criticality Noted Date Comments Flavoring Agent (Non-Screening) [place] Syrup Pineapple Medications glucose blood test strip [...] well, in counseling, seeing Daquan Torres from [facility] Food allergy 05/26/2017 Overview (05/26/2017): to a ?syrup, should see sorter packer Assessment & Plan (05/31/2018 4:10 PM EDT): [...] 4:26 PM EDT): Doing ok, going to [facility] 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
--- OUTSIDE RECORDS SUMMARY | 2025-01-08 14:39 | XMS_ITS | Encounter Summary ---
Author Organization [facility] Address [address] [place] [address] Phone Care Team Providers Care Leather Belt Loop Cutter Name Role Phone Pop Bauman MD Primary Care Provider Mily cabrera Encounter Details Date Type Department Care Team (Late st Contact Info) Description 10/21/2016 Documentation [facility] [place] [facility] [address] [place] [address] Family Medicine, Physician [address] [place] [address] Social History Tobacco Use Types Packs/Day Years [...] on filedocumented in this encounter Care Teams Leather Belt Loop Cutter Relationship Specialty Start Date End Date Pop Bauman MD PCP - General 10/09/16 04/15/22 documented as of this encounter
--- OUTSIDE RECORDS SUMMARY | 2025-01-08 14:39 | XMS_ITS | Clinical Summary ---
Author Organization 175 [facility] Address 175 [place] [address] Phone Care Team Providers Care Aircraft Engine Technician Name Role Phone Mook Abbott MD Primary Care Provider [phone] Allergies No known active allergies Medications betamethasone [...] PM EDT Office Visit Orthopedic Surgery - [place] [address] [address] Shubham Allison DPM Acquired hallux [...] this topic Medical Devices Implanted Type Area Flue Gas Analyst Device Identifier Shelf Expiration Date Model / Serial / Lot Nail Minibunion Offset Short 3.5mm - Sna - [id number] Implanted:Qty: 1 on 08/11/2024 by Shubham Allison DPM at [facility] Internal and External Fixation Right: First Toe [employer] DEPU[employer] SYNTHES 04/08/2028 [id number] / NA / [id number] Screw Non Lock Minibunion 2.7x16mm - Sna - [id number] Implanted:Qty: 1 on 08/11/2024 by Shubham Allison DPM at [facility] Internal and External Fixation Right: First Toe [employer] 04/07/2028 [id number] NL / NA / [id number] Screw Locking Minibunion 3x22mm - Sna - [id number] Implanted:Qty: 1 on 08/11/2024 by Shubham Allison DPM at [facility] Spinal Hardware Right: First Toe [employer]PU[employer] 05/01/2028 [id number] LK / NA / [id number] Headless Screw [id number] Implanted:Qty: 1 on 08/11/2024 by Shubham Allison DPM at [facility] Right: First Toe OTHER 04.333.22 6 [...] R esult from Last 3 Months Insurance [facility] [employer] Care Teams Aircraft Engine Technician Relationship Specialty Start Date End Date Mook Abbott MD [address] [place] [address] Dr [facility] [place] [address] PCP - General Internal Medicine 12/24/23
--- OUTSIDE RECORDS SUMMARY | 2025-01-08 14:39 | XMS_ITS | Encounter Summary ---
Author Organization [facility] Address [address] [place] [address] Phone Care Team Providers Care Pad Machine Feeder Name Role Phone Pop Bauman MD Primary Care Provider Mily cabrera Encounter Details Date Type Department Care Team (Late st Contact Info) Description 03/25/2011 Documentation [facility] [place] [address] [place] [address] Family Medicine, Physician [address] [place] [address] Social History Tobacco Use Types Packs/Day Years [...] on filedocumented in this encounter Care Teams Pad Machine Feeder Relationship Specialty Start Date End Date Pop aBuman MD PCP - General 10/09/16 04/15/22 documented as of this encounter
--- OUTSIDE RECORDS SUMMARY | 2025-01-08 14:39 | XMS_ITS | Encounter Summary ---
Author Organization [facility] Address [address] [place] [address] Phone Care Team Providers Care Windows Infrastructure Engineer Name Role Phone Pop Bauman MD Primary Care Provider Mily cabrera Encounter Details Date Type Department Care Team (Late st Contact Info) Description 06/12/2016 Documentation [facility] [place] [address] [place] [address] Family Medicine, Physician [address] [place] [address] Social History Tobacco Use Types Packs/Day Years [...] on filedocumented in this encounter Care Teams Windows Infrastructure Engineer Relationship Specialty Start Date End Date Pop Bauman MD PCP - General 10/09/16 04/15/22 documented as of this encounter
--- OUTSIDE RECORDS SUMMARY | 2025-01-08 14:39 | XMS_ITS | Encounter Summary ---
Author Organization [facility] Address [address] [place] [address] Phone Care Team Providers Care Coremaker Bench Name Role Phone Pop Bauman MD Primary Care Provider Mily cabrera Encounter Details Date Type Department Care Team (Late st Contact Info) Description 06/12/2016 Documentation [facility] Family Medicine [address] [place] [address] Family Medicine, Physician [address] [place] [address] Social History Tobacco Use Types Packs/Day Years [...] on filedocumented in this encounter Care Teams Coremaker Bench Relationship Specialty Start Date End Date Pop Bauman MD PCP - General 10/09/16 04/15/22 documented as of this encounter
--- OUTSIDE RECORDS SUMMARY | 2025-01-08 14:39 | XMS_ITS | Encounter Summary ---
Author Organization [facility] Address [address] [place] [address] Phone Care Team Providers Care Men'S Designer Name Role Phone Pop Bauman MD Primary Care Provider Mily cabrera Encounter Details Date Type Department Care Team (Late st Contact Info) Description 01/09/2011 Documentation [facility] [place] [address] [place] [address] Family Medicine, Physician [address] [place] [address] Social History Tobacco Use Types Packs/Day Years [...] on filedocumented in this encounter Care Teams Men'S Designer Relationship Specialty Start Date End Date Pop Bauman MD PCP - General 10/09/16 04/15/22 documented as of this encounter
--- OUTSIDE RECORDS SUMMARY | 2025-01-08 14:39 | XMS_ITS | Encounter Summary ---
Author Organization [facility] Address [address] [place] [address] Phone Care Team Providers Care Podiatrist Name Role Phone Pop Bauman MD Primary Care Provider Mily cabrera Encounter Details Date Type Department Care Team (Late st Contact Info) Description 06/09/2016 Documentation [facility] [place] Medicine [address] [place] [address] Family Medicine, Physician [address] [place] [address] Social History Tobacco Use Types Packs/Day Years [...] on filedocumented in this encounter Care Teams Podiatrist Relationship Specialty Start Date End Date Pop Bauman MD PCP - General 10/09/16 04/15/22 documented as of this encounter
--- OUTSIDE RECORDS SUMMARY | 2025-01-08 14:39 | XMS_ITS | Encounter Summary ---
Author Organization [facility] Address [address] [place] [address] Phone Care Team Providers Care Publications Production Supervisor Name Role Phone Pop Bauman MD Primary Care Provider Mily cabrera Encounter Details Date Type Department Care Team (Late st Contact Info) Description 01/13/2011 Documentation [facility] [place] Family Medicine [address] [place] [address] Family Medicine, Physician [address] [place] [address] Social History Tobacco Use Types Packs/Day Years [...] on filedocumented in this encounter Care Teams Publications Production Supervisor Relationship Specialty Start Date End Date Pop Bauman MD PCP - General 10/09/16 04/15/22 documented as of this encounter
--- OUTSIDE RECORDS SUMMARY | 2025-01-08 14:39 | XMS_ITS | Encounter Summary ---
Author Organization [facility] Address [address] [place] [address] Phone Care Team Providers Care Custom Furrier Name Role Phone Pop Bauman MD Primary Care Provider Mily cabrera Encounter Details Date Type Department Care Team (Late st Contact Info) Description 06/29/2016 Documentation [facility] [place] [address] [place] [address] Family Medicine, Physician [address] [place] [address] Social History Tobacco Use Types Packs/Day Years [...] on filedocumented in this encounter Care Teams Custom Furrier Relationship Specialty Start Date End Date Pop Bauman MD PCP - General 10/09/16 04/15/22 documented as of this encounter
--- OUTSIDE RECORDS SUMMARY | 2025-01-08 14:39 | XMS_ITS | Encounter Summary ---
Author Organization [facility] Address [address] [place] [address] Phone Care Team Providers Care Student Nurse Name Role Phone Pop Bauman MD Primary Care Provider Mily cabrera Encounter Details Date Type Department Care Team (Late st Contact Info) Description 05/30/2014 Documentation [facility] [place] Family Medicine [address] [place] [address] Family Medicine, Physician [address] [place] [address] Social History Tobacco Use Types Packs/Day Years [...] on filedocumented in this encounter Care Teams Student Nurse Relationship Specialty Start Date End Date Pop Bauman MD PCP - General 10/09/16 04/15/22 documented as of this encounter
--- OUTSIDE RECORDS SUMMARY | 2025-01-08 14:39 | XMS_ITS | Encounter Summary ---
Author Organization [facility] Address [address] [place] [address] Phone Care Team Providers Care Weed Sprayer Name Role Phone Pop Bauman MD Primary Care Provider Mily cabrera Encounter Details Date Type Department Care Team ([facility] st Contact Info) Description 10/15/2016 Conversion Encounter [facility] - [address] [address] Social History Tobacco Use Types Packs/Day Years [...] on filedocumented in this encounter Care Teams Weed Sprayer Relationship Specialty Start Date End Date Pop Bauman MD PCP - General 10/09/16 04/15/22 documented as of this encounter
== END 2025-01-08 12:44 | disposition home or self-care (01) ==
LOC: HO.HSMS 12:24
PROVIDERS: PCP Internal Medicine; Visit Provider Psychiatry & Neurology Neurology
DX: E34.8 Other specified endocrine disorders (principal); Q87.3 Congenital malformation syndromes involving early overgrowth; G47.33 Obstructive sleep apnea (adult) (pediatric); Z99.89 Dependence on other enabling machines and devices
CPT/HCPCS: 99214

== ENCOUNTER → 2025-01-08 12:23 | Outpatient (BNVA) | payer OTHER, SELFPAY | PROVIDERS: PCP Internal Medicine; Visit Provider Psychiatry & Neurology Neurology | DX: G47.33 Obstructive sleep apnea (adult) (pediatric) (principal); E34.8 Other specified endocrine disorders; Q87.3 Congenital malformation syndromes involving early overgrowth; R06.83 Snoring; G47.10 Hypersomnia, unspecified; Z99.89 Dependence on other enabling machines and devices | CPT/HCPCS: 99212 ==

== ENCOUNTER 2025-01-16 09:17 | Outpatient (REF) | payer OTHER, SELFPAY ==
[2025-01-16 09:32] LABS: MANUAL DIFF FLAG NO
[2025-01-16 09:41] LABS: Hematocrit 53.5 % (42.0-52.0); Hemoglobin 18.1 g/dl (14.0-18.0); Imm Gran Abs Auto 0.03 X10*3/uL (0.00-0.03); Imm Gran Pct Auto 0.4 % (0.0-0.4); Lymphocytes Absolute Auto 2.0 X10*3/uL (1.2-4.9); Mean Corpuscular HGB Conc 33.8 g/dl (31.0-36.0); Mean Corpuscular Hemoglobin 29.0 pg (27.0-33.0); Mean Corpuscular Volume 85.7 fL (80.0-98.0); NRBC Abs Auto 0.000 X10*3/uL (0.0-0.012); NRBC Pct Auto 0.0 /100WBC (0.0-0.2); Platelet Count 211 X10*3/uL (160-400); Red Blood Count 6.24 X10*6/uL (4.60-5.80); White Blood Count 7.4 X10*3/uL (4.8-10.8)
[2025-01-16 10:29] LABS: Alanine Aminotransferase 37 U/L (0-40); Albumin Level 4.6 g/dL (3.5-5.0); Alkaline Phosphatase 114 U/L (39-117); Anion Gap 13 (12-20); Aspartate Amino Transferase 24 U/L (5-37); Blood Urea Nitrogen 14 mg/dL (9-16); Calcium 9.4 mg/dL (8.4-10.2); Carbon Dioxide 22 mmol/L (22-29); Chloride 109 mmol/L (96-108); Cholesterol 202 mg/dL (<200); Estimated Glomerular Filt Rate > 60; HDL Cholesterol 46 mg/dL (>40); Magnesium 1.7 mg/dL (1.6-2.6); Potassium 4.1 mmol/L (3.3-5.1); Sodium 140 mmol/L (135-145); Total Protein 7.5 g/dL (6.5-8.0); Triglycerides 104 mg/dL (<150)
[2025-01-16 10:38] LABS: Free T4 (Free Thyroxine) 1.21 ng/dL (0.71-1.85); Thyroid Stimulating Hormone 2.66 uIU/mL (0.32-4.0)
[2025-01-16 10:50] LABS: Folate 12.6 ng/mL (> or = 4.0); Vitamin B12 721 pg/mL (200-900)
== END 2025-01-16 09:18 | disposition home or self-care (01) ==
LOC: HO.LAB 09:17
PROVIDERS: PCP Internal Medicine; Visit Provider Internal Medicine
DX: F41.1 Generalized anxiety disorder (principal); E78.00 Pure hypercholesterolemia, unspecified
CPT/HCPCS: 36415; 80053; 80061; 82607; 82746; 83036; 83735; 84439; 84443; 85025

== ENCOUNTER 2025-01-18 22:26 | Outpatient (REF) | payer OTHER, SELFPAY ==
[2025-01-19 14:54] LABS: Appearance Urine Clear; Glucose Urine UA Negative (Negative); PH 6.5 (5.0-9.0); Specific Gravity - Urine 1.020 (1.005-1.025)
--- OUTSIDE RECORDS SUMMARY | 2025-01-19 14:56 | XMS_ITS | Continuity of Care Document ---
Author Organization [place] [facility], [facility] Address [address] [place] [address] Care Team Providers Care Construction Carpenter Name Role Phone MARION GOLDEN Primary Care Provider [phone] Assessment Encounter Date Assessment Date Assessment LastModified [...] Details Appointments Establish ed 15 2025 02:15P Yady ZELAYA PA-C Not available Not available Not available Lab None recorded. Referral None recorded. Procedures None recorded. Surgeries None recorded. Imaging None recorded. Medication Orders clotrimaz ole 1 % topical solution 2024 025 [facility]/Pharmacy #[id number], [address] [facility], [place], [address], 12/04/2024 14:21:55 Patient TargetsNo targets recorded. Patient InstructionsNo instructions recorded. Reason for Referral None Reported. 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 93752424 Active 2013 Perforati on of tympanic membrane; Location: bilateral CMS Risk: minimal risk CMS Treatment : establish ed problem (to examiner) : stable or improved Note: Date Diagnosed : 4 11:51 AM (384.20) Not Available [facility] 4 02:36:44 Otorrhea 75561024 Active 2013 Otorrhea; Location: left [facility] Risk: low risk CMS Treatment : establish ed problem (to examiner) : unstable or worsening Note: Date Diagnosed : 4 11:51 AM (388.60) Not Available [facility] 4 02:36:37 Chronic tympaniti s 63755231 Active 2013 Other disorders of tympanic membrane: Chronic myringiti s without mention of otitis media; Location: left [facility] Risk: minimal risk CMS Treatment : establish ed problem (to examiner) : unstable or worsening Note: Date Diagnosed : 4 3:56 PM (384.1) Not Available [facility] 4 02:36:36 Impacted cerumen 03769352 Active 2014 Impacted cerumen; Note: Date Diagnosed : 04/27/2014 6:44 PM (380.4) Not Available [facility] 4 02:36:40 Candidal otitis externa 69681714 Active 2014 Candidal otitis externa; Note: Date Diagnosed : 12/04/2014 9:36 AM (B37.84) SNOW ZELAYA PA-C [address] [place] [address],[place] [address], [place], [address] , [facility] 5 14:20:59 Otorrhea of right ear [id number] 08186 Active 2014 Otorrhea, right ear; Note: Date Diagnosed : 12/04/2014 9:35 AM (H92.11) [mapped from ICD9 code: 388.60] Not Available [facility] 4 02:36:35 Impacted cerumen of bilateral ears 98547505886 00568 Active 2014 Impacted cerumen, bilateral ; Note: Date Diagnosed : 5 4:56 PM (H61.23) SNOW ZELAYA PA-C [address] [place] [address],[place] [address], [place], [address] , [facility] 5 14:20:31 Acute serous otitis media of left ear 98532135678 48239 Active 2016 Acute serous otitis media, left ear; Note: Date Diagnosed : 09/15/2016 12:11 PM (H65.02) Not Available [facility] 4 02:36:39 Impacted cerumen in right ear 59685112175 25589 Active 2017 Impacted cerumen, right ear; Note: Date Diagnosed : 05/06/2017 3:34 PM (H61.21) Not Available [facility] 4 02:36:40 Conductiv e hearing loss of right ear 3958999046 Active 2018 Conductiv e hearing loss, unilatera l, right ear with restricte d hearing on the contralat eral side; Note: Date Diagnosed : 12/01/2018 4:43 PM (H90.A11) Not Available [facility] 4 02:36:34 Sensorine ural hearing loss in left ear 16905713923 109 Active 2018 Sensorine ural hearing loss, unilatera l, left ear, with restricte d hearing on the contralat eral side; Note: Date Diagnosed : 12/01/2018 4:43 PM (H90.A22) Not Available [facility] 4 02:36:39 Mixed conductiv e and sensorine ural hearing loss of right ear 60699316647 105 Active 2019 Mixed conductiv e and sensorine ural hearing loss, unilatera l, right ear, with unrestric aster hearing on the contralat eral side; Note: Date Diagnosed : 08/04/2019 10:29 AM (H90.71) Not Available [facility] 4 02:36:45 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 29442851158 20547 Active 2019 Other acquired stenosis of external ear canal, bilateral ; Note: Date Diagnosed : 10/26/2019 5:26 PM (H61.393) Not Available [facility] 4 02:36:35 Type 2 diabetes mellitus without complicat ion 150214717 Active 2022 Type 2 diabetes mellitus without complicat ions; Note: Date Diagnosed : 09/08/2022 10:40 AM (E11.9) Not Available [facility] 4 02:36:42 Otorrhea of bilateral ears 70534088856 33444 Active 2022 Otorrhea, bilateral ; Note: Date Diagnosed : 09/08/2022 10:44 AM (H92.13) Not Available [facility] 4 02:36:47 Partial loss of ear ossicles 15343915 Active 2022 Partial loss of ear ossicles, right ear; Note: Date Diagnosed : 11/30/2022 1:35 PM (H74.321) Not Available [facility] 4 02:36:47 Impacted cerumen in left ear 86359132258 22594 Active 2023 Impacted cerumen, left ear; Note: Date Diagnosed : 06/24/2023 12:40 PM (H61.22) Not Available [facility] 4 02:36:36 Itching of skin 635482330 Active 2023 Cesia palomo [place] [facility] 4 14:12:27 Problem Notes None recorded. Procedures Surgical History Date Name Laterality Status Provider Name and Address Organization Details Recorded Time 5 Cerumen removal without microscope bilat completed SNOW ZELAYA PA-C [address] [place] [address], [phone], [facility] - [facility] 12/04/2024 14:17:27 4 Cerumen removal without microscope bilat completed Cesia Cabrera [facility] 01/20/2024 15:44:27 Imaging Results None recorded. [...] 28 gauge 09/08 completed Medicati on ID: [id number] D uration Value: 30 Brand Name: FreeStyl e Lancets Send Method: E-Prescr ibed Sub s Allowed: subs OK Speci al Instruct ion: U UTD TO TEST BID Medi cationGe nericNam e: FreeStyl e Lancets Not Available Not Available Not Available Ciloxan 0.3 % eye drops 12/04 completed Medicati on ID: [id number] D uration Value: 7 Prescri bed By [...] a day 12/04 completed Medicati on ID: [id number] D uration Value: 7 Brand Name: ofloxaci n Send Method: E-Prescr ibed Sub s Allowed: subs OK Speci al Instruct ion: x 7 days Med icationG enericNa me: ofloxaci n Not Available Not Available Not Available Bactroban 2 % topical ointment a small amount to affected area 12/04 completed Medicati on ID: [id number] D uration Value: 30 Prescri bed By [...] 4 drop 12/04 completed Medicati on ID: [id number] Du ration Value: 7 Prescri bed By [...] ProAir HFA 09/08 completed Medicati on ID: [id number] D uration Value: 16 Brand Name: ProAir HFA Send Method: E-Prescr ibed Sub s Allowed: subs OK Speci al Instruct ion: INHALE 2 PUFFS PO Q 4 TO 6 H PRN Medi cationGe nericNam e: ProAir HFA Not Available Not Available Not Available FreeStyle Lite Strips 09/08 completed Medicati on ID: [id number] D uration Value: 25 Brand Name: FreeStyl [...] ICD10 Code Diagnosis IMO Codes Diagnosis Note [id number] SNOW ZELAYA PA-C [facility] [address] [address] 12/04/2024 14:04:48 12/04/2024 14:18:06 Impacted cerumen of bilateral ears [id number] 773524 H61.23 Candidal o titis externa 81073634 B37.84 [id number] Health Concerns Section Related Observation LastModified by Organization Detai ls LastModified Time None Recorded Concern Status LastModified by Organization Details LastModified Time None Recorded Payers Encounter Date Sequence Insurance Name Policy Number Policy Lester Covered Member ID Lester Member ID Guarantor Name 12/04/2024 1 [facility]MEDICAID HMO) [employer] Raimundo E Sainz [id number] Raimundo E Sainz Notes Date Note Type Note Provider Name and Address Organization Details Recorded Time 12/04/2024 text/html ROS as noted in the HPI 24-year-old male presents for cerumen removal. He has been having some fullness and itching of the left ear. SHEELA RIZZO MD [address] [place] [address], [phone], [facility] - [facility] 12/04/2024 15:20:58 OBGyn Episode No OBEpisode recorded.
--- OUTSIDE RECORDS SUMMARY | 2025-01-19 14:56 | XMS_ITS | Encounter Summary ---
Author Organization [facility] Address [address] [place] [address] Phone Care Team Providers Care Supply Chain Generalist Name Role Phone Pop Bauman MD Primary Care Provider Mily cabrera Encounter Details Date Type Department Care Team (Late st Contact Info) Description 12/11/2011 Documentation [facility] [place] [address] [place] [address] Family Medicine, Physician [address] [place] [address] Social History Tobacco Use Types Packs/Day Years [...] on filedocumented in this encounter Care Teams Supply Chain Generalist Relationship Specialty Start Date End Date Pop Bauman MD PCP - General 10/09/16 04/15/22 documented as of this encounter
--- OUTSIDE RECORDS SUMMARY | 2025-01-19 14:56 | XMS_ITS | Clinical Summary ---
Author Organization 175 [facility] Address [address] [place] [address] Phone Care Team Providers Care Solderer Electronic Name Role Phone Mook Abbott MD Primary Care Provider [phone] Allergies No known active allergies Medications betamethasone [...] PM EDT Office Visit Orthopedic Surgery - [place] [address] [address] Shubham Allison DPM Acquired hallux [...] this topic Medical Devices Implanted Type Area Candy Polisher Device Identifier Shelf Expiration Date Model / Serial / Lot Nail Minibunion Offset Short 3.5mm - Sna - [id number] Implanted:Qty: 1 on 08/11/2024 by Shubham Allison DPM at [facility] Internal and External Fixation Right: First Toe [employer] 04/08/2028 [id number] / NA / [id number] Screw Non Lock Minibunion 2.7x16mm - Sna - [id number] Implanted:Qty: 1 on 08/11/2024 by Shubham Allison DPM at [facility] Internal and External Fixation Right: First Toe [employer] 04/07/2028 [id number] NL / NA / [id number] Screw Locking Minibunion 3x22mm - Sna - [id number] Implanted:Qty: 1 on 08/11/2024 by Shubham Allison DPM at [facility] Spinal Hardware Right: First Toe [employer] 05/01/2028 [id number] LK / NA / [id number] Headless Screw [id number] Implanted:Qty: 1 on 08/11/2024 by Shubham Allison DPM at [facility] Right: First Toe OTHER 04.333.22 6 / [...] R esult from Last 3 Months Insurance [facility] [place] [address] Care Teams Solderer Electronic Relationship Specialty Start Date End Date Mook Abbott MD [address] [place] [address] Dr [facility] [place] [address] PCP - General Internal Medicine 12/24/23
--- OUTSIDE RECORDS SUMMARY | 2025-01-19 14:57 | XMS_ITS | Encounter Summary ---
Author Organization [facility] Address [address] [place] [address] Phone Care Team Providers Care Completions Engineer Name Role Phone Pop Bauman MD Primary Care Provider Mily cabrera Encounter Details Date Type Department Care Team (Late st Contact Info) Description 02/19/2011 Documentation [facility] [place] Family Medicine [address] [place] [address] Family Medicine, Physician [address] [place] [address] Social History Tobacco Use Types Packs/Day Years [...] on filedocumented in this encounter Care Teams Completions Engineer Relationship Specialty Start Date End Date Pop Bauman MD PCP - General 10/09/16 04/15/22 documented as of this encounter
--- OUTSIDE RECORDS SUMMARY | 2025-01-19 14:57 | XMS_ITS | Encounter Summary ---
Author Organization [facility] Address [address] [place] [address] Phone Care Team Providers Care Seasonal Recruiter Name Role Phone Pop Bauman MD Primary Care Provider Mily cabrera Encounter Details Date Type Department Care Team (Late st Contact Info) Description 02/12/2016 Documentation [facility] [place] [address] [place] [address] Family Medicine, Physician [address] [place] [address] Social History Tobacco Use Types Packs/Day Years [...] on filedocumented in this encounter Care Teams Seasonal Recruiter Relationship Specialty Start Date End Date Pop Bauman MD PCP - General 10/09/16 04/15/22 documented as of this encounter
--- OUTSIDE RECORDS SUMMARY | 2025-01-19 14:57 | XMS_ITS | Encounter Summary ---
Author Organization [facility] Address [address] [place] [address] Phone Care Team Providers Care Lead Welder Name Role Phone Pop Bauman MD Primary Care Provider Mily cabrera Encounter Details Date Type Department Care Team (Late st Contact Info) Description 02/16/2011 Documentation [facility] [place] [address] [place] [address] Family Medicine, Physician [address] [place] [address] Social History Tobacco Use Types Packs/Day Years [...] on filedocumented in this encounter Care Teams Lead Welder Relationship Specialty Start Date End Date Pop Bauman MD PCP - General 10/09/16 04/15/22 documented as of this encounter
--- OUTSIDE RECORDS SUMMARY | 2025-01-19 14:57 | XMS_ITS | Encounter Summary ---
Author Organization [facility] Address [address] [place] [address] Phone Care Team Providers Care Power Sweeper Operator Name Role Phone Pop Bauman MD Primary Care Provider Mily cabrera Encounter Details Date Type Department Care Team ([facility] st Contact Info) Description 10/15/2016 Conversion Encounter [facility] - [address] [address] Social History Tobacco Use Types Packs/Day Years [...] on filedocumented in this encounter Care Teams Power Sweeper Operator Relationship Specialty Start Date End Date Pop Bauman MD PCP - General 10/09/16 04/15/22 documented as of this encounter
--- OUTSIDE RECORDS SUMMARY | 2025-01-19 14:57 | XMS_ITS | Encounter Summary ---
Author Organization [facility] Address [address] [place] [address] Phone Care Team Providers Care Chemical Engineering Technician Name Role Phone Pop Bauman MD Primary Care Provider Mily cabrera Encounter Details Date Type Department Care Team (Late st Contact Info) Description 07/01/2011 Documentation [facility] [place] [address] [place] [address] Family Medicine, Physician [address] [place] [address] Social History Tobacco Use Types Packs/Day Years [...] filedocumented in this encounter Care Teams Chemical Engineering Technician Relationship Specialty Start Date End Date Pop Bauman MD PCP - General 10/09/16 04/15/22 documented as of this encounter
--- OUTSIDE RECORDS SUMMARY | 2025-01-19 14:57 | XMS_ITS | Encounter Summary ---
Author Organization [facility] Address [address] [place] [address] Phone Care Team Providers Care Workers Compensation Claims Adjuster Name Role Phone Pop Bauman MD Primary Care Provider Mily cabrera Encounter Details Date Type Department Care Team (Late st Contact Info) Description 06/10/2012 Documentation [facility] [place] Family Medicine [address] [place] [address] Family Medicine, Physician [address] [place] [address] Social History Tobacco Use Types Packs/Day Years [...] on filedocumented in this encounter Care Teams Workers Compensation Claims Adjuster Relationship Specialty Start Date End Date Pop Bauman MD PCP - General 10/09/16 04/15/22 documented as of this encounter
--- OUTSIDE RECORDS SUMMARY | 2025-01-19 14:57 | XMS_ITS | Data Portability ---
Author Organization [place] - [facility], Allergy Address [address] [address] Care Team Providers Care Snuff Container Inspector Name Role Phone CHANTELMARION Primary Care Provider [phone] Assessment Encounter Date Assessment Date Assessment LastModified [...] ole 1 % topical solution 2024 025 [facility]/Pharmacy #[id number], [address] [facility], [place], [address], 12/04/2024 14:21:55 fluocinol one acetonide oil 0.01 % ear drops 2023 024 [facility]/Pharmacy #[id number], [address] [place], [address], 01/20/2024 14:13:02 clotrimaz ole-betam ethasone 1 %-0.05 % topical cream 2023 024 [email or web address] 32 [facility]/Pharmacy #[id number], [address] [place], [address], 12/04/2024 14:10:12 Patient TargetsNo targets recorded. Patient InstructionsNo instructions recorded. Reason for Referral None Reported. 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 62359473 Active 2013 Perforati on of tympanic membrane; Location: bilateral CMS Risk: minimal risk CMS Treatment : establish ed problem (to examiner) : stable or improved Note: Date Diagnosed : 4 11:51 AM (384.20) Not Available Critical [facility] hospital 4 02:36:44 Otorrhea 95079016 Active 2013 Otorrhea; Location: left CMS Risk: low risk CMS Treatment : establish ed problem (to examiner) : unstable or worsening Note: Date Diagnosed : 4 11:51 AM (388.60) Not Available Critical [facility] hospital 4 02:36:37 Chronic tympaniti s 38028456 Active 2013 Other disorders of tympanic membrane: Chronic myringiti s without mention of otitis media; Location: left CMS Risk: minimal risk CMS Treatment : establish ed problem (to examiner) : unstable or worsening Note: Date Diagnosed : 4 3:56 PM (384.1) Not Available Critical access hospital 4 02:36:36 Impacted cerumen 38049399 Active 2014 Impacted cerumen; Note: Date Diagnosed : 04/27/2014 6:44 PM (380.4) Not Available Critical access hospital 4 02:36:40 Candidal otitis externa 67498728 Active 2014 Candidal otitis externa; Note: Date Diagnosed : 12/04/2014 9:36 AM (B37.84) SNOW ZELAYA PA-C [address] [facility],[place] [address], [place], [address] , [facility] 5 14:20:59 Otorrhea of right ear 46405525065 99630 Active 2014 Otorrhea, right ear; Note: Date Diagnosed : 12/04/2014 9:35 AM (H92.11) [mapped from ICD9 code: 388.60] Not Available Critical access hospital 4 02:36:35 Impacted cerumen of bilateral ears 70818976172 70757 Active 2014 Impacted cerumen, bilateral ; Note: Date Diagnosed : 5 4:56 PM (H61.23) SNOW ZELAYA PA-C [address] [facility] [address], [place], [address] , [facility] 5 14:20:31 Acute serous otitis media of left ear 37947449794 96511 Active 2016 Acute serous otitis media, left ear; Note: Date Diagnosed : 09/15/2016 12:11 PM (H65.02) Not Available Critical access hospital 4 02:36:39 Impacted cerumen in right ear 25378948548 40214 Active 2017 Impacted cerumen, right ear; Note: Date Diagnosed : 05/06/2017 3:34 PM (H61.21) Not Available Critical access hospital 4 02:36:40 Conductiv e hearing loss of right ear 8963332104 Active 2018 Conductiv e hearing loss, unilatera l, right ear with restricte d hearing on the contralat eral side; Note: Date Diagnosed : 12/01/2018 4:43 PM (H90.A11) Not Available Critical access hospital 4 02:36:34 Sensorine ural hearing loss in left ear 18340410251 109 Active 2018 Sensorine ural hearing loss, unilatera l, left ear, with restricte d hearing on the contralat eral side; Note: Date Diagnosed : 12/01/2018 4:43 PM (H90.A22) Not Available Critical access hospital 4 02:36:39 Mixed conductiv e and sensorine ural hearing loss of right ear 39016762261 105 Active 2019 Mixed conductiv e and sensorine ural hearing loss, unilatera l, right ear, with unrestric aster hearing on the contralat eral side; Note: Date Diagnosed : 08/04/2019 10:29 AM (H90.71) Not Available Critical access hospital 4 02:36:45 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 81682037306 06232 Active 2019 Other acquired stenosis of external ear canal, bilateral ; Note: Date Diagnosed : 10/26/2019 5:26 PM (H61.393) Not Available Critical access hospital 4 02:36:35 Type 2 diabetes mellitus without complicat ion 785002627 Active 2022 Type 2 diabetes mellitus without complicat ions; Note: Date Diagnosed : 09/08/2022 10:40 AM (E11.9) Not Available Critical access hospital 4 02:36:42 Otorrhea of bilateral ears 25633088075 87861 Active 2022 Otorrhea, bilateral ; Note: Date Diagnosed : 09/08/2022 10:44 AM (H92.13) Not Available Critical access hospital 4 02:36:47 Partial loss of ear ossicles 37411279 Active 2022 Partial loss of ear ossicles, right ear; Note: Date Diagnosed : 11/30/2022 1:35 PM (H74.321) Not Available Critical access hospital 4 02:36:47 Impacted cerumen in left ear 52491471160 84954 Active 2023 Impacted cerumen, left ear; Note: Date Diagnosed : 06/24/2023 12:40 PM (H61.22) Not Available Critical access hospital 4 02:36:36 Itching of skin 000138165 Active 2023 Cesia palomo [place] - [facility] 4 14:12:27 Problem Notes None recorded. Procedures Surgical History Date Name Laterality Status Provider Name and Address Organization Details Recorded Time 5 Cerumen removal without microscope bilat completed SNOW ZELAYA PA-C [address] [place] [address],[place] [address], [place], [address], [place] - [facility] 12/04/2024 14:17:27 4 Cerumen removal without microscope bilat completed Cesia Rosales [place] - [facility] 01/20/2024 15:44:27 Imaging Results None recorded. [...] 28 gauge 09/08 completed Medicati on ID: [id number] D uration Value: 30 Brand Name: FreeStyl e Lancets Send Method: E-Prescr ibed Sub s Allowed: subs OK Speci al Instruct ion: U UTD TO TEST BID Medi cationGe nericNam e: FreeStyl e Lancets Not Available Not Available Not Available Ciloxan 0.3 % eye drops 12/04 completed Medicati on ID: [id number] D uration Value: 7 Prescri bed By [...] a day 12/04 completed Medicati on ID: [id number] D uration Value: 7 Brand Name: ofloxaci n Send Method: E-Prescr ibed Sub s Allowed: subs OK Speci al Instruct ion: x 7 days Med icationG enericNa me: ofloxaci n Not Available Not Available Not Available Bactroban 2 % topical ointment a small amount to affected area 12/04 completed Medicati on ID: [id number] D uration Value: 30 Prescri bed By [...] 4 drop 12/04 completed Medicati on ID: [id number] Du ration Value: 7 Prescri bed By [...] ProAir HFA 09/08 completed Medicati on ID: [id number] D uration Value: 16 Brand Name: ProAir HFA Send Method: E-Prescr ibed Sub s Allowed: subs OK Speci al Instruct ion: INHALE 2 PUFFS PO Q 4 TO 6 H PRN Medi cationGe nericNam e: ProAir HFA Not Available Not Available Not Available FreeStyle Lite Strips 09/08 completed Medicati on ID: [id number] D uration Value: 25 Brand Name: FreeStyl [...] Updated DateTime 01/20/2024 187.96 cm 32.5 kg/m2 002139.87 g Colleen Anaya [place] - [facility] 01/20/2024 13:35:16 Social History None recorded. Functional Status None recorded. Mental Status None recorded. Family History Nothing Reported. Medical History No medical history recorded. Gynecological HistoryNo gynecological history recorded. Obstetrics History GPAL:G 0 P 0 0 0 0 Past Encounters Encounter ID Performer Location Encounter Start Date Encounter Closed Date Diagnosis/Indication Diagnosis SNOMED-CT Code Diagnosis ICD10 Code Diagnosis IMO Codes Diagnosis Note [id number] CESIA ROSALES PA-C [facility] [address] [place] [address] 01/20/2024 13:16:45 01/20/2024 14:16:45 Impacted cerumen of bilateral ears 0442259742 733169 H61.23 Itching of skin 32189757 0 L29.9 [id number] SNOW ZELAYA PA-C [facility] [address] [place] [address] 12/04/2024 14:04:48 12/04/2024 14:18:06 Impacted cerumen of bilateral ears 6299652709 847763 H61.23 Candidal o titis externa 01490220 B37.84 253858 Health Concerns Section Related Observation LastModified by Organization Detai ls LastModified Time None Recorded Concern Status LastModified by Organization Details LastModified Time None Recorded Advance Directives Directive None Recorded Payers Insurance Date Sequence Insurance Name Policy Number Policy Lester Covered Member ID Lester Member ID Guarantor Name 12/01/2024 1 [facility] PLAN (MEDICAID HMO) [place] Raimundo Wanosta [id number] Raimundo Sainz Notes Date Note Type Note [...] and change in hearing. KOLE ZHONG MD [address] [place] [address], [address], [facility] - [facility] 01/20/2024 17:15:36 12/04/2024 text/html ROS as noted in the HPI 24-year-old male presents for cerumen removal. He has been having some fullness and itching of the left ear. SHEELA RIZZO MD [address] [place] [address],[address], [address], [facility] - [facility] 12/04/2024 15:20:58 OBGyn Episode No OBEpisode recorded.
--- OUTSIDE RECORDS SUMMARY | 2025-01-19 14:57 | XMS_ITS | Encounter Summary ---
Author Organization [facility] Address [address] [place] [address] Phone Care Team Providers Care Muff Winder Name Role Phone Pop Bauman MD Primary Care Provider Mily cabrera Encounter Details Date Type Department Care Team (Late st Contact Info) Description 06/09/2016 Documentation [facility] [place] [address] [place] [address] Family Medicine, Physician [address] [place] [address] Social History Tobacco Use Types Packs/Day Years [...] on filedocumented in this encounter Care Teams Muff Winder Relationship Specialty Start Date End Date Pop Bauman MD PCP - General 10/09/16 04/15/22 documented as of this encounter
--- OUTSIDE RECORDS SUMMARY | 2025-01-19 14:57 | XMS_ITS | Encounter Summary ---
Author Organization [facility] Address [address] [place] [address] Phone Care Team Providers Care Warp Tester Name Role Phone Pop Bauman MD Primary Care Provider Mily cabrera Encounter Details Date Type Department Care Team (Late st Contact Info) Description 03/25/[address] [facility] [place] [address] [place] [address] Family Medicine, Physician [address] [place] [address] Social History Tobacco Use Types Packs/Day Years [...] on filedocumented in this encounter Care Teams Warp Tester Relationship Specialty Start Date End Date Pop Bauman MD PCP - General 10/09/16 04/15/22 documented as of this encounter
--- OUTSIDE RECORDS SUMMARY | 2025-01-19 14:57 | XMS_ITS | Encounter Summary ---
Author Organization [facility] Address [address] [place] [address] Phone Care Team Providers Care Top Hat Body Maker Name Role Phone Pop Bauman MD Primary Care Provider Mily cabrera Encounter Details Date Type Department Care Team (Late st Contact Info) Description 11/10/2012 Documentation [facility] [place] [address] [place] [address] Family Medicine, Physician [address] [place] [address] Social History Tobacco Use Types Packs/Day Years [...] filedocumented in this encounter Care Teams Top Hat Body Maker Relationship Specialty Start Date End Date Pop Bauman MD PCP - General 10/09/16 04/15/22 documented as of this encounter
--- OUTSIDE RECORDS SUMMARY | 2025-01-19 14:57 | XMS_ITS | Encounter Summary ---
Author Organization [facility] Address [address] [place] [address] Phone Care Team Providers Care Die Repairer Stamping Name Role Phone Pop Bauman MD Primary Care Provider Mily cabrera Encounter Details Date Type Department Care Team (Late st Contact Info) Description 06/12/2016 Documentation [facility] [place] [address] [place] [address] Family Medicine, Physician [address] [place] [address] Social History Tobacco Use Types Packs/Day Years [...] on filedocumented in this encounter Care Teams Die Repairer Stamping Relationship Specialty Start Date End Date Pop Bauman MD PCP - General 10/09/16 04/15/22 documented as of this encounter
--- OUTSIDE RECORDS SUMMARY | 2025-01-19 14:57 | XMS_ITS | Encounter Summary ---
Author Organization [facility] Address [address] [place] [address] Phone Care Team Providers Care Neuroscience Specialist Name Role Phone Pop Bauman MD Primary Care Provider Mily cabrera Encounter Details Date Type Department Care Team (Late st Contact Info) Description 07/14/2012 Documentation [facility] [place] [address] [place] [address] Family Medicine, Physician [address] [place] [address] Social History Tobacco Use Types Packs/Day Years [...] on filedocumented in this encounter Care Teams Neuroscience Specialist Relationship Specialty Start Date End Date Pop Bauman MD PCP - General 10/09/16 04/15/22 documented as of this encounter
--- OUTSIDE RECORDS SUMMARY | 2025-01-19 14:57 | XMS_ITS | Encounter Summary ---
Author Organization [facility] Address [address] [place] [address] Phone Care Team Providers Care Pharmacy Grad Intern Name Role Phone Pop Bauman MD Primary Care Provider Mily cabrera Encounter Details Date Type Department Care Team (Late st Contact Info) Description 10/21/2016 Documentation [facility] [place] [address] [place] [address] Family Medicine, Physician [address] [place] [address] Social History Tobacco Use Types Packs/Day Years [...] on filedocumented in this encounter Care Teams Pharmacy Grad Intern Relationship Specialty Start Date End Date Pop Bauman MD PCP - General 10/09/16 04/15/22 documented as of this encounter
--- OUTSIDE RECORDS SUMMARY | 2025-01-19 14:57 | XMS_ITS | Encounter Summary ---
Author Organization [facility] Address [address] [place] [address] Phone Care Team Providers Care Instrument Repairer Steam Plant Name Role Phone Pop Bauman MD Primary Care Provider Mily cabrera Encounter Details Date Type Department Care Team (Late st Contact Info) Description 01/09/2011 Documentation [facility] [place] [address] [place] [address] Family Medicine, Physician [address] [place] [address] Social History Tobacco Use Types Packs/Day Years [...] on filedocumented in this encounter Care Teams Instrument Repairer Steam Plant Relationship Specialty Start Date End Date Pop Bauman MD PCP - General 10/09/16 04/15/22 documented as of this encounter
--- OUTSIDE RECORDS SUMMARY | 2025-01-19 14:57 | XMS_ITS | Encounter Summary ---
Author Organization [facility] Address [address] [place] [address] Phone Care Team Providers Care Wind Development Director Name Role Phone Pop Bauman MD Primary Care Provider Mily cabrera Encounter Details Date Type Department Care Team (Late st Contact Info) Description 06/08/2016 Documentation [facility] [place] Family Medicine [address] [place] [address] Family Medicine, Physician [address] [place] [address] Social History Tobacco Use Types Packs/Day Years [...] on filedocumented in this encounter Care Teams Wind Development Director Relationship Specialty Start Date End Date Pop Bauman MD PCP - General 10/09/16 04/15/22 documented as of this encounter
--- OUTSIDE RECORDS SUMMARY | 2025-01-19 14:57 | XMS_ITS | Encounter Summary ---
Author Organization [facility] Address [address] [place] [address] Phone Care Team Providers Care Inside Sales Account Representative Name Role Phone Pop Bauman MD Primary Care Provider Mily cabrera Encounter Details Date Type Department Care Team (Late st Contact Info) Description 01/13/2011 [place]ation [facility] [place] [address] [place] [address] Family Medicine, Physician [address] [place] [address] Social History Tobacco Use Types Packs/Day Years [...] on filedocumented in this encounter Care Teams Inside Sales Account Representative Relationship Specialty Start Date End Date Pop Bauman MD PCP - General 10/09/16 04/15/22 documented as of this encounter
--- OUTSIDE RECORDS SUMMARY | 2025-01-19 14:57 | XMS_ITS | Clinical Summary ---
Author Organization [facility] Address [address] [place] [address] Phone Care Team Providers Care Shop Manager Name Role Phone Unavailable Primary Care Provider Unavailabl e Allergies Active Allergy Reactions Criticality Noted Date Comments Flavoring Agent (Non-Screening) Duval Syrup Pineapple Medications glucose blood test strip [...] well, in counseling, seeing Daquan Torres from [facility] Food allergy 05/26/2017 Overview (05/26/2017): to a ?syrup, should see hot knife cutter Assessment & Plan (05/31/2018 4:10 PM EDT): [...] 4:26 PM EDT): Doing ok, going to [facility] 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
--- OUTSIDE RECORDS SUMMARY | 2025-01-19 14:57 | XMS_ITS | Encounter Summary ---
Author Organization [facility] Address [address] [place] [address] Phone Care Team Providers Care Door Closer Name Role Phone Pop Bauman MD Primary Care Provider Mily cabrera Encounter Details Date Type Department Care Team (Late st Contact Info) Description 05/30/2014 Documentation [facility] [place] Family Medicine [address] [place] [address] Family Medicine, Physician [address] [place] [address] Social History Tobacco Use Types Packs/Day Years [...] on filedocumented in this encounter Care Teams Door Closer Relationship Specialty Start Date End Date Pop Bauman MD PCP - General 10/09/16 04/15/22 documented as of this encounter
--- OUTSIDE RECORDS SUMMARY | 2025-01-19 14:57 | XMS_ITS | Encounter Summary ---
Author Organization [facility] Address [address] [place] [address] Phone Care Team Providers Care Ssn/Ssbn Weapons Equipment Operator Name Role Phone Pop Bauman MD Primary Care Provider Mily cabrera Encounter Details Date Type Department Care Team (Late st Contact Info) Description 06/12/2016 Documentation [facility] [place] [address] [place] [address] Family Medicine, Physician [address] [place] [address] Social History Tobacco Use Types Packs/Day Years [...] on filedocumented in this encounter Care Teams Ssn/Ssbn Weapons Equipment Operator Relationship Specialty Start Date End Date Pop Bauman MD PCP - General 10/09/16 04/15/22 documented as of this encounter
--- OUTSIDE RECORDS SUMMARY | 2025-01-19 14:57 | XMS_ITS | Encounter Summary ---
Author Organization [facility] Address [address] [place] [address] Phone Care Team Providers Care Control Board Operator Name Role Phone Pop Bauman MD Primary Care Provider Mily cabrera Encounter Details Date Type Department Care Team (Late st Contact Info) Description 03/25/2011 Documentation [facility] [place] Family Medicine [address] [place] [address] Family Medicine, Physician [address] [place] [address] Social History Tobacco Use Types Packs/Day Years [...] on filedocumented in this encounter Care Teams Control Board Operator Relationship Specialty Start Date End Date Pop Bauman MD PCP - General 10/09/16 04/15/22 documented as of this encounter
--- OUTSIDE RECORDS SUMMARY | 2025-01-19 14:57 | XMS_ITS | Encounter Summary ---
Author Organization [facility] Address [address] [place] [address] Phone Care Team Providers Care Rental Sales Representative Name Role Phone Pop Bauman MD Primary Care Provider Mily cabrera Encounter Details Date Type Department Care Team (Late st Contact Info) Description 06/29/2016 Documentation [facility] [place] [address] [place] [address] Family Medicine, Physician [address] [place] [address] Social History Tobacco Use Types Packs/Day Years [...] on filedocumented in this encounter Care Teams Rental Sales Representative Relationship Specialty Start Date End Date Pop Bauman MD PCP - General 10/09/16 04/15/22 documented as of this encounter
== END 2025-01-18 22:27 | disposition home or self-care (01) ==
LOC: HO.LNP 22:26
PROVIDERS: Visit Provider Internal Medicine
DX: F41.1 Generalized anxiety disorder (principal); R30.0 Dysuria
CPT/HCPCS: 81003